=== PATIENT | male | born 1980 | race African-American/Black ===

== ENCOUNTER 2016-06-24 20:18 | Emergency (ER) | payer OTHER ==
[~2016-06-24] VITALS: Ht 170.2 cm; Wt 68.0 kg
[~2016-06-24 20:18] MED LIST: NKM; POTASSIUM CHLO20 ME2 ORAL
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
[2016-06-24] MEDS ORDERED: Norco 5mg/325mg tab ORAL ONE (21:15)
[2016-06-24] MEDS ORDERED: Pantoprazole Inj IVP ONE (21:15)
[2016-06-24 21:31] LABS: MEAN CORPUSCULAR HEMOGLOBIN 33.8 PG (27.0-31.0); MEAN CORPUSCULAR HGB CONC 32.7 G/DL (32.0-36.0); MEAN CORPUSCULAR VOLUME 103 FL (80-99); MEAN PLATELET VOLUME 5.9 FL (6.5-10.1); PLATELET COUNT 191 K/UL (150-450); RED CELL DISTRIBUTION WIDTH 14.9 % (11.6-14.8); WHITE BLOOD COUNT 4.5 K/UL (4.8-10.8)
[2016-06-24 21:35] LABS: APPEARANCE,URINE CLEAR; KETONES,URINE NEGATIVE (NEGATIVE); LEUKOCYTE ESTERASE ,URINE NEGATIVE (NEGATIVE); NITRITE,URINE NEGATIVE (NEGATIVE); PH,URINE 7 (4.5-8.0); PROTEIN,URINE NEGATIVE (NEGATIVE); UROBILINOGEN,URINE NORMAL MG/DL (0.0-1.0)
[2016-06-24 21:49] LABS: ALANINE AMINOTRANSFERASE 21 U/L (3-41); ALBUMIN/GLOBULIN RATIO 1.1 (1.0-2.7); ANION GAP 16 (5-15); ASPARTATE AMINO TRANSFERASE 44 U/L (5-40); CARBON DIOXIDE 27 mEQ/L (20-30); CHLORIDE 95 mEQ/L (98-107); GLOMERULAR FILTRATION RATE > 60 mL/min (>60); HEMOLYSIS 6; SODIUM 138 mEQ/L (135-145)
[2016-06-24 21:57] VITALS: BP 132/88
[2016-06-24] MEDS ORDERED: IBUPROFEN600 M1 PO (22:58)
[2016-06-24 23:10] VITALS: BP 132/80
[2016-06-24 23:11] VITALS: BP 132/88
[2016-06-24 23:20] LABS: BASOPHILS % (MANUAL) 1 % (0-2); EOSINOPHILS % (MANUAL) 2 % (0-3); LYMPHOCYTES % (MANUAL) 53 % (20-45); NEUTROPHILS % (MANUAL) 37 % (45-75); TOTAL CELLS COUNTED 100
[2016-06-24 23:21] LABS: BAND NEUTROPHILS % (MANUAL) 0 % (0-8); PLATELET ESTIMATE ADEQUATE; PLATELET MORPHOLOGY NORMAL
--- NOTE | 2016-06-25 09:56 | Diagnostic Imaging Report ---
Clinical Indication: ABD PAIN Technique: No oral contrast utilized, per emergency room physician request IV administration nonionic contrast. Venous phase spiral acquisition obtained through the abdomen and pelvis. Multiplanar reconstructions were generated. Total dose length product 525 mGycm. CTDIvol(s) 10 mGy Comparison: None Findings: Normal appendix. No small bowel distention No evidence of diverticulosis or diverticulitis. No free or loculated intraperitoneal air or fluid the stomach, duodenum, distal esophagus are unremarkable. Liver demonstrates diffuse low attenuation, compatible with fatty change. There are scattered focal hypodensities which are too small to characterize. There is also hypodensity adjacent to the fissure for ligamentum teres, most likely focal fatty change. The gallbladder is unremarkable. No biliary ductal dilatation. The pancreas, spleen, adrenals, kidneys are unremarkable. No pelvic mass or adenopathy. No mesenteric or retroperitoneal mass or adenopathy. The included lung bases are clear. The bones are unremarkable. Impression: No acute abnormality Fatty liver Scattered hepatic hypodensities no acute bony characterize, most likely benign simple cysts or bile hamartomas. No further followup necessary Probable focal fatty change in the usual location of the left hepatic lobe This agrees with the preliminary interpretation provided overnight by [facility]erad[facility] service. The CT scanner at [facility] is accredited by the [employer] and the scans are performed using protocols designed to limit radiation exposure to as low as reasonably achievable to attain images of sufficient resolution adequate for diagnostic evaluation.
== END 2016-06-24 23:11 | disposition home or self-care (01) ==
LOC: EMR 21:44
DX: S30.1XXA Contusion of abdominal wall, initial encounter (principal); K92.0 Hematemesis; F10.10 Alcohol abuse, uncomplicated; F17.200 Nicotine dependence, unspecified, uncomplicated; Y04.8XXA Assault by other bodily force, initial encounter; Y92.9 Unspecified place or not applicable; Y99.8 Other external cause status
CPT/HCPCS: 36415; 74177; 80053; 80300; 81003; 85007; 85025; 96360; 96374; 99284; C9113; Q9967

== ENCOUNTER 2016-12-20 16:51 | Emergency (ER) | payer OTHER ==
[~2016-12-20] VITALS: Ht 170.2 cm; Wt 63.5 kg
[~2016-12-20 16:51] MED LIST changes: +IBUPROFEN600 M1 PO
[2016-12-20] MEDS ORDERED: Tetanus/Diptheria/Pertussis Vaccine 0.5ml Syr IM ONE (17:15)
[2016-12-20 18:19] VITALS: BP 124/77
[2016-12-20 18:25] VITALS: BP 124/77
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
== END 2016-12-20 18:25 | disposition left against medical advice (07) ==
LOC: EMR 17:20
DX: S61.512A Laceration without foreign body of left wrist, initial encounter (principal); W45.8XXA Other foreign body or object entering through skin, initial encounter; Y92.89 Other specified places as the place of occurrence of the external cause
CPT/HCPCS: 99283

== ENCOUNTER 2019-01-23 17:59 | Inpatient (IN) | payer OTHER ==
[~2019-01-23] VITALS: Ht 172.7 cm; Wt 55.3 kg
[2019-01-23 18:20] VITALS: BP 119/78
[2019-01-23] MEDS ORDERED: Pantoprazole Inj IV ONE (18:45)
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
[2019-01-23 19:18] VITALS: BP 128/89
--- NOTE | 2019-01-23 19:23 | NUR ---
ED Nurse Note: received patient from sita aparicio. patient resting in bed with no acute distress. family member at bedside. ao4. nad. attached to the monitor; vss. respirations even and unlabored. aware of peding admission. pending urine; pt states he will provide urine sample when able.
--- NOTE | 2019-01-23 19:45 | NUR ---
ED Nurse Note: urine sample collected; sent down to the lab.
[2019-01-23 19:57] LABS: BASOPHILS % (AUTO) 1.7 % (0.0-2.0); EOSINOPHILS % (AUTO) 0.5 % (0.0-3.0); HEMOGLOBIN 13.5 G/DL (14.2-18.0); LYMPHOCYTES % (AUTO) 34.4 % (20.0-45.0); MEAN CORPUSCULAR VOLUME 86 FL (80-99); MONOCYTES % (AUTO) 11.5 % (1.0-10.0); PLATELET COUNT 144 K/UL (150-450); RED BLOOD COUNT 4.75 M/UL (4.70-6.10); RED CELL DISTRIBUTION WIDTH 14.4 % (11.6-14.8); WHITE BLOOD COUNT 5.3 K/UL (4.8-10.8)
[2019-01-23 20:06] LABS: ANION GAP 15 mmol/L (5-15); BLOOD UREA NITROGEN 3 mg/dL (7-18); CALCIUM 9.9 MG/DL (8.5-10.1); CARBON DIOXIDE 27 MMOL/L (21-32); CHLORIDE 96 MMOL/L (98-107); CREATININE 0.8 MG/DL (0.55-1.30); INR 1.1 (0.9-1.1); POTASSIUM 4.2 MMOL/L (3.5-5.1); SODIUM 138 MMOL/L (136-145)
[2019-01-23 20:12] LABS: ALANINE AMINOTRANSFERASE 141 U/L (12-78); ALBUMIN/GLOBULIN RATIO 0.7 (1.0-2.7); ALKALINE PHOSPHATASE 218 U/L (46-116); ASPARTATE AMINO TRANSFERASE 410 U/L (15-37); BILIRUBIN,TOTAL 0.8 MG/DL (0.2-1.0); CREATINE KINASE 190 U/L (26-308)
[2019-01-23 20:17] LABS: APPEARANCE,URINE CLEAR; BILIRUBIN, URINE NEGATIVE (NEGATIVE); COLOR,URINE PALE YELLOW; GLUCOSE, URINE (UA) NEGATIVE (NEGATIVE); KETONES,URINE 1+ (NEGATIVE); LEUKOCYTE ESTERASE ,URINE NEGATIVE (NEGATIVE); NITRITE,URINE NEGATIVE (NEGATIVE); PH,URINE 5 (4.5-8.0); PROTEIN,URINE 1+ (NEGATIVE); UROBILINOGEN,URINE NORMAL MG/DL (0.0-1.0)
--- NOTE | 2019-01-23 20:38 | NUR ---
ED Nurse Note: completed belongings list with patient.
[2019-01-23] MEDS ORDERED: Thiamine HCl 100 MG in D5W 55 ML IVPB STA (20:46)
[2019-01-23 21:00] VITALS: BP 125/80
[2019-01-23] MEDS ORDERED: Pantoprazole 80 MG in NS 250 ML IV ONE (21:15)
[2019-01-23] MEDS ORDERED: LORazepam 1mg tab ORAL PRN (21:15)
[2019-01-23] MEDS ORDERED: NS 275ml ONE (21:27)
--- NOTE | 2019-01-23 21:30 | NUR ---
TRANSFER TO FLOOR: Patient transferred to med surg 402-1 as ordered, per henrietta salazar. Report given to robel buckner. patient transfered to the floor via wheelchair with emt. belongings and packet transferred with patient. accompanied by family member. ao4. nad. vss.
--- NOTE | 2019-01-23 21:55 | NUR ---
NURSE NOTES: Patient received from ED, came up in wheelchair, in no acute distress, on room air. Sent to bed 412-1. Came up with belongings. Some valuables as noted on belongings list were sent home with pt's mother. Pt is alert and oriented x4, He is unsteady in gait and currently resting in bed. Bed is locked in lowest position, side rails x3 as requested by patient. Bed is alarmed, pt has been educated about the unit, given call light for assistance and asked to call as he is a fall risk. Pt verbalized understanding and agreed to fall for assistance, call light within reach. will continue to monitor pt. VSS at this time. IV R AC 20 g, patent, asymptomatic. Will carry out MD orders. Mother at patient's bedside.
[2019-01-23 22:00] VITALS: BP 128/88
[2019-01-24] VITALS: BP 121/71
[2019-01-24 04:00] VITALS: BP 119/72
--- NOTE | 2019-01-24 07:23 | NUR ---
HAND-OFF: Report given to TIERRA Negron.
--- NOTE | 2019-01-24 07:50 | NUR ---
NURSE NOTES: stool for cdiff brought to lab.
--- NOTE | 2019-01-24 07:50 | NUR ---
NURSE NOTES: Patient is awake and alert and oriented,respirations unlabored.IV fluids infusing as ordered.Patient had a liquid dark green stool,stool sent for Cdiff as ordered.patient voided clear yellow urine. small amount of blood tinge sputum noted.reinforce to patient to call for assist when getting out of bed. Ther is commode at bedside.Bed alarm is on,call light within reach.
[2019-01-24 08:00] VITALS: BP 124/83
[2019-01-24 08:47] LABS: ALANINE AMINOTRANSFERASE 112 U/L (12-78); ALBUMIN 3.2 G/DL (3.4-5.0); ALBUMIN/GLOBULIN RATIO 0.7 (1.0-2.7); ALKALINE PHOSPHATASE 174 U/L (46-116); ANION GAP 12 mmol/L (5-15); ASPARTATE AMINO TRANSFERASE 302 U/L (15-37); BILIRUBIN,TOTAL 1.2 MG/DL (0.2-1.0); BLOOD UREA NITROGEN 2 mg/dL (7-18); CARBON DIOXIDE 26 MMOL/L (21-32); CHLORIDE 98 MMOL/L (98-107); CREATININE 0.8 MG/DL (0.55-1.30); POTASSIUM 3.2 MMOL/L (3.5-5.1); SODIUM 136 MMOL/L (136-145)
[2019-01-24 08:52] LABS: BILIRUBIN,DIRECT 0.5 MG/DL (0.0-0.3)
[2019-01-24 09:13] LABS: BASOPHILS % (AUTO) 1.2 % (0.0-2.0); EOSINOPHILS % (AUTO) 0.4 % (0.0-3.0); HEMOGLOBIN 11.6 G/DL (14.2-18.0); LYMPHOCYTES % (AUTO) 23.6 % (20.0-45.0); MEAN CORPUSCULAR VOLUME 86 FL (80-99); MONOCYTES % (AUTO) 10.3 % (1.0-10.0); NEUTROPHILS % (AUTO) 64.5 % (45.0-75.0); PLATELET COUNT 118 K/UL (150-450); RED BLOOD COUNT 4.05 M/UL (4.70-6.10); RED CELL DISTRIBUTION WIDTH 15.7 % (11.6-14.8); WHITE BLOOD COUNT 5.5 K/UL (4.8-10.8)
--- NOTE | 2019-01-24 09:18 | History and Physical ---
History of Present Illness General Date patient seen: Jan 24, 2019 Reason for Hospitalization: Pancreatitis, GI bleed Present Illness HPI This is a 38-year-old male with a past medical history of alcohol dependence. He presents for3 to 4 days of hematemesis and melanotic stools. The patient drinks 5-10 alcoholic drinks per day. Last drink was 01/23/19. If he does not drink he starts having the shakes morning. He has also had epigastric pain associated with the vomiting and unable to keep food down. He rates this pain 1 -2/10 at this time and burning and aching. The pain does not radiate. He feels weak when he stands up. He denies any seizures. 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 No fevers, chills, sore throat, chest pain, palpitations, dysuria, shortness of breath, joint pain, rashes, depression, anxiety, visual changes, dizziness, headache. He has never attended Alcoholics Anonymous. In the ER the patient had a temperature of 98.4 pulse 124, respirations 24, blood pressure 119/78. Patient with WBCs 5.3 hemoglobin 13.5, platelets 144. Potassium 3.2, creatinine 0.8. AST elevated 410 ALT 141 alk phos 218. Initial troponin negative. EKG showed normal sinus rhythm rate of 81, no ST depressions or elevations. Lipase elevated at 1634. Patient given IV fluids and pain meds. Allergies: None Family history: Mother diabetes Surgical history: None Social history: Half pack per day for 15 years, 10-year history of heavy alcohol use, marijuana use Medications: None Allergies: Coded Allergies: No Known Allergies (Unverified , 10/05/15) Medication History No Active Prescriptions or Reported Meds Patient History Healthcare decision maker Resuscitation status Full Code Advanced Directive on File Review of Systems Constitutional: Denies: see HPI, chills, sweats, fever, malaise, weakness, other Eye: Denies: see HPI, eye pain, blurred vision, tearing, double vision, nose pain, nose congestion, acuity changes, discharge, other ENT: Denies: see HPI, ear pain, ear discharge, nose pain, nose congestion, throat pain, throat swelling, mouth pain, hearing loss, nasal discharge, other Respiratory: Denies: see HPI, cough, orthopnea, shortness of breath, stridor, wheezing, BROOKS, sputum, other Cardiovascular: Denies: see HPI, chest pain, edema, palpitations, syncope, PND , other Gastrointestinal: Reports: abdominal pain, nausea, vomiting, melena, hematemesis; Denies: see HPI, constipation, diarrhea, other Genitourinary: Denies: see HPI, discharge, dysuria, frequency, hematuria, pain , retention, incontinence, urgency, vag bleed/dc, other Musculoskeletal: Denies: see HPI, back pain, gout, joint pain, joint swelling, muscle pain, muscle stiffness, other Skin: Denies: see HPI, rash, change in color, change in hair/nails, dryness, lesions, other Psychiatric: Denies: see HPI, prior hx, anxiety, depressed feelings, emotional problems, SI, HI, hallucinations, other Neurological: Denies: see HPI, headache, numbness, paresthesia, seizure, tingling, tremors, focal weakness, syncope, dizziness, other Endocrine: Denies: see HPI, excessive sweating, flushing, intolerance to temperature, increased thirst, increased urine, unexplained weight loss, other Hematologic/Lymphatic: Denies: see HPI, anemia, blood clots, easy bleeding, easy bruising, swollen glands, diathesis, other Physical Exam General Appearance: WD/WN, no apparent distress, alert Lines, tubes and drains: peripheral HEENT: normocephalic, atraumatic, anicteric, PERRL Neck: non-tender, normal alignment, supple Respiratory/Chest: chest wall non-tender, lungs clear, normal breath sounds, no respiratory distress, no accessory muscle use Cardiovascular/Chest: normal peripheral pulses, normal rate, regular rhythm, no JVD Abdomen: normal bowel sounds, non tender, soft, no organomegaly, no mass Extremities: normal range of motion, non-tender, normal inspection Skin Exam: normal pigmentation, warm/dry 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 normal, no motor/sensory deficits, alert, oriented x 3, responsive Lymphatic: anterior cervical - No lymphadenopathy bilaterally Last 24 Hour Vital Signs Date Time Temp Pulse Resp B/P (MAP) Pulse Ox O2 Delivery O2 Flow Rate FiO2 01/24/19 08:00 98.5 104 18 124/83 (97) 100 01/24/19 04:00 98.6 89 18 119/72 (88) 98 01/24/19 00:00 98.8 92 18 121/71 (88) 98 01/23/19 23:52 Room Air 01/23/19 22:00 98.8 87 18 128/88 (101) 98 01/23/19 21:30 98.4 90 16 125/80 99 Room Air 01/23/19 21:00 98.4 90 16 125/80 99 Room Air 01/23/19 19:18 98.4 88 14 128/89 100 Room Air 01/23/19 18:20 98.4 24 119/78 98 Room Air 01/23/19 18:20 98.4 24 119/78 98 Room Air 01/23/19 18:10 98.4 124 24 119/78 (92) 98 Room Air Intake and Output 01/23/19 01/24/19 19:00 07:00 Intake Total 1125 ml Output Total 550 ml Balance 575 ml Intake Oral 0 ml IV Total 1125 ml Output Urine Total 550 ml # Voids 1 # Bowel Movements 3 Laboratory Tests Test 01/23/19 18:56 01/23/19 19:45 01/24/19 06:20 White Blood Count 5.3 K/UL (4.8-10.8) Pending Red Blood Count 4.75 M/UL (4.70-6.10) Pending Hemoglobin 13.5 G/DL (14.2-18.0) L Pending Hematocrit 41.0 % (42.0-52.0) L Pending Mean Corpuscular Volume 86 FL (80-99) Pending Mean Corpuscular Hemoglobin 28.4 PG (27.0-31.0) Pending Mean Corpuscular Hemoglobin Concent 33.0 G/DL (32.0-36.0) Pending Red Cell Distribution Width 14.4 % (11.6-14.8) Pending Platelet Count 144 K/UL (150-450) L Pending Mean Platelet Volume 6.6 FL (6.5-10.1) Pending Neutrophils (%) (Auto) 52.0 % (45.0-75.0) Pending Lymphocytes (%) (Auto) 34.4 % (20.0-45.0) Pending Monocytes (%) (Auto) 11.5 % (1.0-10.0) H Pending Eosinophils (%) (Auto) 0.5 % (0.0-3.0) Pending Basophils (%) (Auto) 1.7 % (0.0-2.0) Pending Prothrombin Time 11.4 SEC (9.30-11.50) Prothromb Time International Ratio 1.1 (0.9-1.1) Activated Partial Thromboplast Time 28 SEC (23-33) Sodium Level 138 MMOL/L (136-145) 136 MMOL/L (136-145) Potassium Level 4.2 MMOL/L (3.5-5.1) 3.2 MMOL/L (3.5-5.1) L Chloride Level 96 MMOL/L (98-107) L 98 MMOL/L (98-107) Carbon Dioxide Level 27 MMOL/L (21-32) 26 MMOL/L (21-32) Anion Gap 15 mmol/L (5-15) 12 mmol/L (5-15) Blood Urea Nitrogen 3 mg/dL (7-18) L 2 mg/dL (7-18) L Creatinine 0.8 MG/DL (0.55-1.30) 0.8 MG/DL (0.55-1.30) Estimat Glomerular Filtration Rate > 60 mL/min (>60) > 60 mL/min (>60) Glucose Level 94 MG/DL (74-106) 56 MG/DL (74-106) L Calcium Level 9.9 MG/DL (8.5-10.1) 8.0 MG/DL (8.5-10.1) L Total Bilirubin 0.8 MG/DL (0.2-1.0) 1.2 MG/DL (0.2-1.0) H Aspartate Amino Transf (AST/SGOT) 410 U/L (15-37) H 302 U/L (15-37) H Alanine Aminotransferase (ALT/SGPT) 141 U/L (12-78) H 112 U/L (12-78) H Alkaline Phosphatase 218 U/L (46-116) H 174 U/L (46-116) H Total Creatine Kinase 190 U/L (26-308) Troponin I 0.000 ng/mL (0.000-0.056) Total Protein 9.5 G/DL (6.4-8.2) H 7.8 G/DL (6.4-8.2) Albumin 4.0 G/DL (3.4-5.0) 3.2 G/DL (3.4-5.0) L Globulin 5.5 g/dL 4.6 g/dL Albumin/Globulin Ratio 0.7 (1.0-2.7) L 0.7 (1.0-2.7) L Lipase 1634 U/L (73-393) H Serum Alcohol 293 mg/dL Urine Color Pale yellow Urine Appearance Clear Urine pH 5 (4.5-8.0) Urine Specific [place] 1.010 (1.005-1.035) Urine Protein 1+ (NEGATIVE) H Urine Glucose (UA) Negative (NEGATIVE) Urine Ketones 1+ (NEGATIVE) H Urine Blood Negative (NEGATIVE) Urine Nitrite Negative (NEGATIVE) Urine Bilirubin Negative (NEGATIVE) Urine Urobilinogen Normal MG/DL (0.0-1.0) Urine Leukocyte Esterase Negative (NEGATIVE) Urine RBC 0 /HPF (0 - 0) Urine WBC 0 /HPF (0 - 0) Urine Squamous Epithelial Cells Occasional /LPF Urine Bacteria None /HPF (NONE) Urine Mucus Few /LPF (NONE/OCC) H Urine Opiates Screen Negative (NEGATIVE) Urine Barbiturates Screen Negative (NEGATIVE) Phencyclidine (PCP) Screen Negative (NEGATIVE) Urine Amphetamines Screen Negative (NEGATIVE) Urine Benzodiazepines Screen Negative (NEGATIVE) Urine Cocaine Screen Negative (NEGATIVE) Urine Marijuana (THC) Screen Positive (NEGATIVE) H Phosphorus Level Pending Magnesium Level Pending Direct Bilirubin 0.5 MG/DL (0.0-0.3) H Height (Feet): 5 Height (Inches): 8.00 Weight (Pounds): 121 Medications Current Medications Medications (Trade) Dose Ordered Sig/[place] Route PRN Reason Start Time Stop Time Status Last Admin Dose Admin Acetaminophen (Tylenol) 650 mg Q4H PRN ORAL Mild Pain (Pain Scale 1-3) 01/23/19 21:15 02/22/19 21:14 Acetaminophen (Tylenol) 650 mg Q4H PRN ORAL fever 01/23/19 21:15 02/22/19 21:14 Ceftriaxone Sodium 1 gm/ Dextrose 55 ml @ 110 mls/hr Q24H IVPB 01/24/19 10:00 01/31/19 09:59 Dextrose (Dextrose 50%) 25 ml Q30M PRN IV Hypoglycemia 01/23/19 21:15 02/22/19 21:14 Dextrose (Dextrose 50%) 50 ml Q30M PRN IV Hypoglycemia 01/23/19 21:15 02/22/19 21:14 Diphenhydramine HCl (Benadryl) 25 mg Q6H PRN ORAL Itching/Pruritis 01/23/19 21:15 02/22/19 21:14 Folic Acid 1 mg/ Magnesium Sulfate 2000 mg/ Multivitamins 10 ml/Thiamine HCl 100 mg/Sodium Chloride 1,015.2 ml @ 125 mls/ hr Q24H IV 01/24/19 09:15 01/27/19 09:14 UNV Lorazepam (Ativan) 1 mg Q4H PRN ORAL Per rx protocol 01/24/19 01:15 01/30/19 21:14 Octreotide Acetate 500 mcg/ Sodium Chloride 500 ml @ 50 mls/hr Q10H IV 01/24/19 10:15 02/23/19 10:14 Ondansetron HCl (Zofran) 4 mg Q6H PRN IVP Nausea & Vomiting 01/23/19 21:15 02/22/19 21:14 Pantoprazole 80 mg/Sodium Chloride 250 ml @ 25 mls/hr Q10H IV 01/24/19 10:15 02/23/19 10:14 Potassium Chloride 100 ml @ 100 mls/hr Q1H IVPB 01/24/19 09:30 01/24/19 12:29 Sodium Chloride 1,000 ml @ 200 mls/hr Q5H IVLG 01/23/19 22:02 02/22/19 22:01 01/24/19 08:56 Assessment/Plan Problem List: (1) Pancreatitis ICD Codes: K85.90 - Acute pancreatitis without necrosis or infection, unspecified SNOMED: 12322788 Qualifiers: Qualified Codes: K85.20 - Alcohol induced acute pancreatitis without necrosis or infection (2) Alcoholic hepatitis ICD Codes: K70.10 - Alcoholic hepatitis without ascites SNOMED: 492881289 (3) Thrombocytopenia ICD Codes: D69.6 - Thrombocytopenia, unspecified SNOMED: 300468199 (4) Hypokalemia ICD Codes: E87.6 - Hypokalemia SNOMED: 35629346 (5) Upper GI bleed ICD Codes: K92.2 - Gastrointestinal hemorrhage, unspecified SNOMED: 05338470 (6) Alcohol abuse ICD Codes: F10.10 - Alcohol abuse, uncomplicated SNOMED: 39335067 Assessment/Plan: This is a 38-year-old male with a history of alcohol dependence presenting with alcoholic pancreatitis, upper GI bleed, alcoholic hepatitis. #Acute pancreatitis, suspect alcohol induced. -IV normal saline at 200 cc/h -N.P.o. -Dilaudid for pain management -Appreciate GI recommendations: Dr. Mcdaniel -abdominal ultrasound #Upper GI bleed -Trend CBC -occult blood -Appreciate GI recommendations -Plan for EGD -Protonix 40 mg IV twice daily -Octreotide GTT for possible varices -Rocephin 1 g IV every 24 hours (01/24 - ) #Alcoholic hepatitis. AST 2X>ALT. - improving #EtOH dependence #Suspect possible underlying cirrhosis > [facility] discrimant function 0.3. Good prognosis >last drink 01/23/19 >no history of withdrawl, seizures or DT's -No steroids indicated -Continue to trend LFTs -Appreciate GI recommendations -abdominal US to eval for cirrhosis as above -CIWAA protocol for withdrawl -ativan PRN -banana bag x 3 days #diarrhea, suspect related to pancreatitis. R/o C. diff - send for C.diff FENPPX DVTPPX: SCD's for now. Holding Heparin SQ given bleed GI PPX: Protonix Fluids: as above Diet: NPO Lines: peripheral PT/OT: pending Code status: Full Dispo: Home after resolution of above issues Reason for Continued Hospitalization: Pancreatitits 78 minutes spent on this encounter. Discussed with RN, patient, and gastroenterology . > 50% spent on counseling and care coordination. Time of note may not reflect time patient was seen. Dayron Salas D.O. Jan 24, 2019 09:18
[2019-01-24 09:33] LABS: PHOSPHORUS 3.1 MG/DL (2.5-4.9)
[2019-01-24] MEDS ORDERED: Pantoprazole 80 MG in NS 250 ML IV SCH (10:15)
--- NOTE | 2019-01-24 10:26 | Diagnostic Imaging Report ---
Indication: Reason For Exam: ABD PAIN Technique: Single AP view of the chest. Comparison: None. Findings: The cardiomediastinal silhouette is within normal limits. There is no focal consolidation, pneumothorax or pleural effusion. Osseous structures demonstrate no acute abnormality. Right anterior fourth through sixth rib deformities may represent old healed fractures. IMPRESSION: No radiographic evidence of acute cardiopulmonary process.
--- NOTE | 2019-01-24 10:27 | Diagnostic Imaging Report ---
Indication: Reason For Exam: ABD PAIN Technique: AP views of the abdomen Comparison: CT abdomen pelvis dated 06/24/2016 Findings: Bowel gas pattern is nonobstructive. Visceral shadows are unremarkable within limitations of the examination. Lung bases are clear. IMPRESSION: Nonobstructive bowel gas pattern.
[2019-01-24] MEDS: cefTRIAXone 1 GM in D5W 55 ML IVPB SCH (11:26)
--- NOTE | 2019-01-24 11:45 | General Progress Note ---
Assessment/Plan Assessment/Plan: GI Consult Assessment EtOH hepatitis EtOH pancreatitis UGIB, likely EtOH gastritis Will arrange for EGD Thank you Maurice Mcdaniel MD Subjective Allergies: Coded Allergies: No Known Allergies (Unverified , 10/05/15) Objective Last 24 Hour Vital Signs Date Time Temp Pulse Resp B/P (MAP) Pulse Ox O2 Delivery O2 Flow Rate FiO2 01/24/19 08:00 98.5 104 18 124/83 (97) 100 01/24/19 04:00 98.6 89 18 119/72 (88) 98 01/24/19 00:00 98.8 92 18 121/71 (88) 98 01/23/19 23:52 Room Air 01/23/19 22:00 98.8 87 18 128/88 (101) 98 01/23/19 21:30 98.4 90 16 125/80 99 Room Air 01/23/19 21:00 98.4 90 16 125/80 99 Room Air 01/23/19 19:18 98.4 88 14 128/89 100 Room Air 01/23/19 18:20 98.4 24 119/78 98 Room Air 01/23/19 18:20 98.4 24 119/78 98 Room Air 01/23/19 18:10 98.4 124 24 119/78 (92) 98 Room Air Intake and Output 01/23/19 01/24/19 19:00 07:00 Intake Total 1125 ml Output Total 550 ml Balance 575 ml Intake Oral 0 ml IV Total 1125 ml Output Urine Total 550 ml # Voids 1 # Bowel Movements 3 Laboratory Tests 01/23/19 18:56: White Blood Count 5.3, Red Blood Count 4.75, Hemoglobin 13.5L, Hematocrit 41.0L , Mean Corpuscular Volume 86, Mean Corpuscular Hemoglobin 28.4, Mean Corpuscular Hemoglobin Concent 33.0, Red Cell Distribution Width 14.4, Platelet Count 144L, Mean Platelet Volume 6.6, Neutrophils (%) (Auto) 52.0, Lymphocytes ( %) (Auto) 34.4, Monocytes (%) (Auto) 11.5H, Eosinophils (%) (Auto) 0.5, Basophils (%) (Auto) 1.7, Prothrombin Time 11.4, Prothromb Time International Ratio 1.1, Activated Partial Thromboplast Time 28, Sodium Level 138, Potassium Level 4.2, Chloride Level 96L, Carbon Dioxide Level 27, Anion Gap 15, Blood Urea Nitrogen 3L, Creatinine 0.8, Estimat Glomerular Filtration Rate > 60, Glucose Level 94, Calcium Level 9.9, Total Bilirubin 0.8, Aspartate Amino Transf (AST/SGOT) 410H, Alanine Aminotransferase (ALT/SGPT) 141H, Alkaline Phosphatase 218H, Total Creatine Kinase 190, Troponin I 0.000, Total Protein 9.5H, Albumin 4.0, Globulin 5.5, Albumin/Globulin Ratio 0.7L, Lipase 1634H, Serum Alcohol 293 01/23/19 19:45: Urine Color Pale yellow, Urine Appearance Clear, Urine pH 5, Urine Specific [place] 1.010, Urine Protein 1+H, Urine Glucose (UA) Negative, Urine Ketones 1+H , Urine Blood Negative, Urine Nitrite Negative, Urine Bilirubin Negative, Urine Urobilinogen Normal, Urine Leukocyte Esterase Negative, Urine RBC 0, Urine WBC 0 , Urine Squamous Epithelial Cells Occasional, Urine Bacteria None, Urine Mucus FewH, Urine Opiates Screen Negative, Urine Barbiturates Screen Negative, Phencyclidine (PCP) Screen Negative, Urine Amphetamines Screen Negative, Urine Benzodiazepines Screen Negative, Urine Cocaine Screen Negative, Urine Marijuana (THC) Screen PositiveH 01/24/19 06:20: White Blood Count 5.5, Red Blood Count 4.05L, Hemoglobin 11.6L, Hematocrit 35.0L , Mean Corpuscular Volume 86, Mean Corpuscular Hemoglobin 28.7, Mean Corpuscular Hemoglobin Concent 33.2, Red Cell Distribution Width 15.7H, Platelet Count 118L, Mean Platelet Volume 7.1, Neutrophils (%) (Auto) 64.5, Lymphocytes (%) (Auto) 23.6, Monocytes (%) (Auto) 10.3H, Eosinophils (%) (Auto) 0.4, Basophils (%) (Auto) 1.2, Sodium Level 136, Potassium Level 3.2L, Chloride Level 98, Carbon Dioxide Level 26, Anion Gap 12, Blood Urea Nitrogen 2L, Creatinine 0.8, Estimat Glomerular Filtration Rate > 60, Glucose Level 56L, Calcium Level 8.0L, Total Bilirubin 1.2H, Aspartate Amino Transf (AST/SGOT) 302H , Alanine Aminotransferase (ALT/SGPT) 112H, Alkaline Phosphatase 174H, Total Protein 7.8, Albumin 3.2L, Globulin 4.6, Albumin/Globulin Ratio 0.7L, Phosphorus Level 3.1, Magnesium Level 1.0L, Direct Bilirubin 0.5H, Lactate Dehydrogenase 410H Height (Feet): 5 Height (Inches): 8.00 Weight (Pounds): 121 Maurice Mcdaniel MD Jan 24, 2019 11:45
[2019-01-24] MEDS: Octreotide Acetate 500 MCG in Sodium Chloride 499 ML IV SCH ×2 (11:59→20:51)
[2019-01-24 12:00] VITALS: BP 136/83
[2019-01-24] MEDS: Pantoprazole Inj IVP SCH ×2 (12:17→20:51)
[2019-01-24] MEDS: Thiamine 100mg in D5W 55ml IVPB SCH (13:02)
[2019-01-24] MEDS: Folic Acid 1 MG, Magnesium Sulfate 2,000 MG, Multivitamin - 12 Injection 10 ML in Sodiu... IV SCH (13:03)
[2019-01-24] MEDS ORDERED: HYDROmorphone 1mg/ml Carpuject IVP PRN (15:45)
[2019-01-24] MEDS ORDERED: Hydromorphone 0.5mg/0.5ml inj IVP PRN ×2 (15:45)
[2019-01-24 16:00] VITALS: BP 129/85
--- NOTE | 2019-01-24 18:00 | NUR ---
NURSE NOTES: Patient resting,no complaints at this time,IV continues to infuse as ordered.Bed alarm is on,call light within reach.
--- NOTE | 2019-01-24 19:30 | Consultation ---
DATE OF CONSULTATION: 01/24/2019 GASTROENTEROLOGY CONSULTATION REPORT CHIEF COMPLAINT: I was asked to see this patient by Dr. Gerhard Wilkes for evaluation of GI bleeding and pancreatitis. HISTORY OF PRESENT ILLNESS: The patient is a 38-year-old, man who drinks excessive amounts of alcohol since age 19. He came to the hospital with a 3-day history of nausea, vomiting. The patient was also noted to have some streaks of red blood in his vomit and his stools reported to be black. He thinks he drinks up to 5 more beverages of alcohol daily. He has had no previous history of pancreatitis or hepatitis. PAST MEDICAL HISTORY: History of right injury with permanent damage, recent history of leg weakness. MEDICATIONS: None. FAMILY HISTORY: Noncontributory. SOCIAL HISTORY: The patient lives with his mother. He smokes. He drinks alcohol and he uses marijuana. REVIEW OF SYSTEMS: Otherwise negative. PHYSICAL EXAMINATION: GENERAL: Thin seen in his room. HEENT: Normocephalic and atraumatic. Oropharynx is clear. NECK: Supple. CHEST: Clear to auscultation. CARDIOVASCULAR: Regular rate. ABDOMEN: Soft, nontender in the epigastric region without guarding. EXTREMITIES: Revealed no edema. LABORATORY DATA: Noted. ASSESSMENT: This patient presents for both upper gastrointestinal bleeding as well as pancreatitis both of which could be attributed to excessive alcohol use. The patient was advised regarding excessive alcohol use and his long-term consequences. He should be kept NPO today and endoscopy can be done tomorrow if the patient is agreeable. His pancreatitis is clinically mild, he is nontender. His vital signs are stable. His diet can be resumed tomorrow after endoscopy. In the meantime proton pump inhibitor should be given and should be followed closely. RECOMMENDATIONS: Per above discussion and per orders written in the chart. Thank you for asking me to participate in care this patient. Maurice Mcdaniel M.D. DR: Marco JOB#: [id number] CC:
--- NOTE | 2019-01-24 19:48 | NUR ---
HAND-OFF: Report given to BRITTANY MAYORGA. Addendum: 01/24/19 at 1959 by LUIS DANIEL ELENA RN RN HAND-OFF: clarification,report given to Amy MAYORGA
--- NOTE | 2019-01-24 19:50 | NUR ---
NURSE NOTES: Received report from TEIRRA Negron. Patient is awake and alert and oriente x4, respirations unlabored on room air. IV fluids infusing as ordered. Reinforced to patient to call for assist when getting out of bed, BSC at bedside, Bed is locked in lowest position, .Bed alarm is on,call light within reach, urinal within reach.
[2019-01-24 20:00] VITALS: BP 114/72
[2019-01-25] VITALS (9 sets, daily range): BP systolic 110–141; BP diastolic 71–96
[2019-01-25] MEDS: LORazepam 1mg tab ORAL PRN ×2 (03:08→09:22)
[2019-01-25] MEDS: Octreotide Acetate 500 MCG in Sodium Chloride 499 ML IV SCH ×2 (06:35→16:15)
--- NOTE | 2019-01-25 07:21 | NUR ---
HAND-OFF: Report given to TIERRA Ryan.
--- NOTE | 2019-01-25 07:43 | NUR ---
NURSE NOTES: Endorsed that patient will be going for endoscopy, GI procedure checklist completed
--- NOTE | 2019-01-25 09:00 | NUR ---
NURSE NOTES: patient pulled out one of LFA IV access, with blood splashing over his gown, bed sheet and floor. Bleeding stopped after site compression, patient was cleansed by TELETYPE MECHANIC and nurse. EVS sanitized affected areas in patient's bedroom. Educated patient to not take out the other remaining IV access, patient needs reinforcement.
[2019-01-25] MEDS: cefTRIAXone 1 GM in D5W 55 ML IVPB SCH (09:22)
[2019-01-25] MEDS: Pantoprazole Inj IVP SCH ×2 (09:22→20:05)
--- NOTE | 2019-01-25 09:49 | NUR ---
*-* NO INSURANCE INFORMATION IN THE BAR UNABLE TO SEND CLINICALS OR REVIEWS *-*
[2019-01-25 10:02] LABS: BASOPHILS % (AUTO) 1.3 % (0.0-2.0); EOSINOPHILS % (AUTO) 0.3 % (0.0-3.0); HEMATOCRIT 36.3 % (42.0-52.0); HEMOGLOBIN 11.9 G/DL (14.2-18.0); MEAN CORPUSCULAR VOLUME 88 FL (80-99); MONOCYTES % (AUTO) 12.2 % (1.0-10.0); NEUTROPHILS % (AUTO) 68.2 % (45.0-75.0); PLATELET COUNT 119 K/UL (150-450); RED BLOOD COUNT 4.14 M/UL (4.70-6.10); RED CELL DISTRIBUTION WIDTH 16.1 % (11.6-14.8); WHITE BLOOD COUNT 6.4 K/UL (4.8-10.8)
[2019-01-25 10:08] LABS: INR 1.2 (0.9-1.1)
[2019-01-25 10:39] LABS: ALANINE AMINOTRANSFERASE 95 U/L (12-78); ALBUMIN 3.5 G/DL (3.4-5.0); ALBUMIN/GLOBULIN RATIO 0.7 (1.0-2.7); ALKALINE PHOSPHATASE 166 U/L (46-116); ANION GAP 23 mmol/L (5-15); ASPARTATE AMINO TRANSFERASE 202 U/L (15-37); BILIRUBIN,TOTAL 1.3 MG/DL (0.2-1.0); BLOOD UREA NITROGEN 2 mg/dL (7-18); CALCIUM 7.6 MG/DL (8.5-10.1); CARBON DIOXIDE 15 MMOL/L (21-32); CHLORIDE 95 MMOL/L (98-107); CREATININE 0.7 MG/DL (0.55-1.30); PHOSPHORUS 1.9 MG/DL (2.5-4.9); POTASSIUM 3.6 MMOL/L (3.5-5.1); SODIUM 133 MMOL/L (136-145)
[2019-01-25] MEDS ORDERED: LORazepam Inj 2mg/ml 1ml IV PRN ×2 (10:45→11:00)
[2019-01-25 10:53] LABS: BILIRUBIN,DIRECT 0.5 MG/DL (0.0-0.3)
[2019-01-25] MEDS ORDERED: LORazepam 1mg tab ORAL PRN (11:00)
--- NOTE | 2019-01-25 11:40 | Pre-Procedure Note/Attestation ---
Pre-Procedure Note/Attestation Complete Prior to Procedure Planned Procedure: not applicable Procedure Narrative: egd Indications for Procedure Pre-Operative Diagnosis: GIB Attestation I attest that I discussed the nature of the procedure; its benefits; risks and complications; and alternatives (and the risks and benefits of such alternatives ), prior to the procedure, with the patient (or the patient's legal site safety representative). I attest that, if there was a reasonable possibility of needing a blood transfusion, the patient (or the patient's legal site safety representative) was given the [facility] standardized written summary, pursuant to the [employer] Blood Safety Act ([place] Health and Safety Code # 1645, as amended). I attest that I re-evaluated the patient just prior to the surgery and that there has been no change in the patient's H&P, except as documented below: Steven Grey MD Jan 25, 2019 11:40
[2019-01-25] MEDS ORDERED: Lidocaine 1% MPF 10mg/ml 5ml ONE (12:00)
[2019-01-25] MEDS ORDERED: fentaNYL 100 mcg/2 mL IV PRN (12:00)
[2019-01-25] MEDS ORDERED: Propofol 200mg/20ml IV ONE (12:00)
[2019-01-25] MEDS ORDERED: Midazolam 2mg/2ml Inj IVP PRN (12:00)
[2019-01-25] MEDS ORDERED: Atropine Inj 1mg/10ml Syr IV PRN (12:00)
[2019-01-25] MEDS ORDERED: DiphenhydrAMINE 50mg/ml Inj IVP PRN (12:00)
--- NOTE | 2019-01-25 12:01 | Anethesia Preoperative Eval ---
Anesthesia Pre-op PMH/ROS General Date of Evaluation: Jan 25, 2019 Time of Evaluation: 11:49 Anesthesiologist: darrick ASA Score: ASA 3 Mallampati Score Class I : Soft palate, uvula, fauces, pillars visible Class II: Soft palate, uvula, fauces visible Class III: Soft palate, base of uvula visible Class IV: Only hard plate visible Mallampati Classification: Class II Surgeon: luis enrique Diagnosis: ugib Surgical Procedure: egd Anesthesia History: none Social History: alcohol use, drug use Family History: no anesthesia problems Allergies: Coded Allergies: No Known Allergies (Unverified , 10/05/15) Medications: see eMAR Patient NPO?: Yes Past Medical History Gastrointestinal/Genitourinary: Reports: other - hematemesis, pancreatitis,gi bleed Neurologic/Psychiatric: Reports: depression/anxiety, other - weakness, neurologic disorder Hematology/Immune: Reports: anemia Anesthesia Pre-op Phys. Exam Physician Exam Last Vital Signs Date Time Temp Pulse Resp B/P (MAP) Pulse Ox O2 Delivery O2 Flow Rate FiO2 01/25/19 09:00 Room Air 01/25/19 08:00 97.6 90 20 118/82 (94) 100 Constitutional: NAD Neurologic: CN 2-12 intact Cardiovascular: RRR Respiratory: CTA Gastrointestinal: S/NT/ND Airway Exam Mallampati Score: Class II MO: limited Neck: flexible TMD: 2fb ROM: limited Anesthesia Pre-op A/P Labs Hematology Test 01/25/19 09:30 White Blood Count 6.4 K/UL (4.8-10.8) Red Blood Count 4.14 M/UL (4.70-6.10) L Hemoglobin 11.9 G/DL (14.2-18.0) L Hematocrit 36.3 % (42.0-52.0) L Mean Corpuscular Volume 88 FL (80-99) Mean Corpuscular Hemoglobin 28.6 PG (27.0-31.0) Mean Corpuscular Hemoglobin Concent 32.7 G/DL (32.0-36.0) Red Cell Distribution Width 16.1 % (11.6-14.8) H Platelet Count 119 K/UL (150-450) L Mean Platelet Volume 7.7 FL (6.5-10.1) Neutrophils (%) (Auto) 68.2 % (45.0-75.0) Lymphocytes (%) (Auto) 18.0 % (20.0-45.0) L Monocytes (%) (Auto) 12.2 % (1.0-10.0) H Eosinophils (%) (Auto) 0.3 % (0.0-3.0) Basophils (%) (Auto) 1.3 % (0.0-2.0) Coagulation Test 01/25/19 09:30 Prothrombin Time 12.4 SEC (9.30-11.50) H Prothromb Time International Ratio 1.2 (0.9-1.1) H Chemistry Test 01/25/19 09:30 Sodium Level 133 MMOL/L (136-145) L Potassium Level 3.6 MMOL/L (3.5-5.1) Chloride Level 95 MMOL/L (98-107) L Carbon Dioxide Level 15 MMOL/L (21-32) L Anion Gap 23 mmol/L (5-15) H Blood Urea Nitrogen 2 mg/dL (7-18) L Creatinine 0.7 MG/DL (0.55-1.30) Estimat Glomerular Filtration Rate > 60 mL/min (>60) Glucose Level 110 MG/DL (74-106) H Calcium Level 7.6 MG/DL (8.5-10.1) L Phosphorus Level 1.9 MG/DL (2.5-4.9) L Magnesium Level 1.4 MG/DL (1.8-2.4) L Total Bilirubin 1.3 MG/DL (0.2-1.0) H Direct Bilirubin 0.5 MG/DL (0.0-0.3) H Aspartate Amino Transf (AST/SGOT) 202 U/L (15-37) H Alanine Aminotransferase (ALT/SGPT) 95 U/L (12-78) H Alkaline Phosphatase 166 U/L (46-116) H Total Protein 8.2 G/DL (6.4-8.2) Albumin 3.5 G/DL (3.4-5.0) Globulin 4.7 g/dL Albumin/Globulin Ratio 0.7 (1.0-2.7) L Risk Assessment & Plan Assessment: asa3 Plan: mac Status Change Before Surgery: No Pre-Antibiotics Drug: Lindsay Ruff MD Jan 25, 2019 12:01
--- NOTE | 2019-01-25 12:04 | Endoscopy Procedure Note ---
Endoscopy Procedure Note General Indication for Procedure: gib Procedures Performed: EGD Operative Findings/Diagnosis: gastritis Specimen: yes Pt Tolerated Procedure Well: Yes Estimated Blood Loss: none Anesthesia Anesthesiologist: simeon Anesthesia: MAC Inserted Devices Implant(s) used?: No GI Core Measures 50 yrs or older w/o bx or poly: Not Applicable 10yrs. F/U recommended: Not Applicable Steven Grey MD Jan 25, 2019 12:04
[2019-01-25] MEDS ORDERED: NS 500ML IVPB ONE (12:07)
--- NOTE | 2019-01-25 12:19 | Diagnostic Imaging Report ---
Indication: Abdominal pain. Elevated liver enzymes Technique: Grayscale and duplex Doppler imaging of the abdomen performed. Comparison: None Findings: The liver is echogenic consistent with fatty infiltration. Doppler interrogation of the main portal vein shows patency with hepatopedal, monophasic flow. There is no biliary ductal dilatation identified. Gallbladder is unremarkable. The head of the pancreas appears prominent and heterogeneous. Further evaluation of this with contrast-enhanced CT is recommended to evaluate for tumor or pancreatitis. There is no biliary ductal dilatation appreciated. CBD measures 2.5 mm. Aorta and IVC are unremarkable. Both kidneys appear unremarkable. There is no hydronephrosis. IMPRESSION: Heterogeneous prominence of the pancreatic head. Further evaluation with contrast CT is recommended to evaluate for possible tumor or pancreatitis. No biliary ductal dilatation. Fatty liver.
--- NOTE | 2019-01-25 12:40 | Immediate Post-Op Evaluation ---
Immediate Post-Op Evalulation Immediate Post-Op Evalulation Procedure: egd w/bx Date of Evaluation: Jan 25, 2019 Time of Evaluation: 12:34 IV Fluids: 250ml 0.9ns Blood Products: none Estimated Blood Loss: negligible Blood Pressure Systolic: 110 Blood Pressure Diastolic: 77 Pulse Rate: 77 Respiratory Rate: 18 O2 Sat by Pulse Oximetry: 100 Temperature (Fahrenheit): 97.0 Pain Score (1-10): 0 Nausea: No Vomiting: No Complications none Patient Status: awake, reacts, patent Hydration Status: adequate Drug: Lindsay Ruff MD Jan 25, 2019 12:40
--- NOTE | 2019-01-25 12:41 | 48 Hour Post Anesthesia Eval ---
Post Anesthesia Evaluation Procedure: egd w/bx Date of Evaluation: Jan 25, 2019 Time of Evaluation: 12:36 Blood Pressure Systolic: 110 0: 77 Pulse Rate: 78 Respiratory Rate: 18 Temperature (Fahrenheit): 97.0 O2 Sat by Pulse Oximetry: 100 Airway: patent Nausea: No Vomiting: No Pain Intensity: 0 Hydration Status: adequate Cardiopulmonary Status: stable Mental Status/LOC: patient returned to baseline Post-Anesthesia Complications: none Follow-up care needed: N/A Lindsay Lewis MD Jan 25, 2019 12:41
--- NOTE | 2019-01-25 13:08 | NUR ---
RD ASSESSMENT & RECOMMENDATIONS SEE CARE ACTIVITY FOR COMPLETE ASSESSMENT DAILY ESTIMATED NEEDS: Needs based on Pancreatitis, underweight 55kg 30-35 kcals/kg 7789-1808 total kcals 1-1.5 g protein/kg 55-83 g total protein 25-30 mL/kg 6536-4578 total fluid mLs NUTRITION DIAGNOSIS: Increased kcal needs r/t h/o ETOH abuse, underweight status as evidenced by pt w/ reported chronic alcohol use, adm w/ blood alcohol level of 293, BMI underweight per guidelines, pt is 79% of [place] body weight. CURRENT DIET:Now Regular PO DIET RECOMMENDATIONS: SOFT DIET/ LOW FAT (d/t elev lipase) ADDITIONAL RECOMMENDATIONS: 1) monitor lipase, trend (1634) 2) Check lytes daily, replete as needed (Low Mg, Low Phos) 3) Obtain a standing weight, pt adm w/ reported wt loss 4) Add Ensure Enlive qdaily + snacks in b/w meals 5) Continue banana bag supplementation Including Vit B1, Mg, folate
[2019-01-25] MEDS: Folic Acid 1 MG, Magnesium Sulfate 2,000 MG, Multivitamin - 12 Injection 10 ML in Sodiu... IV SCH (13:15)
[2019-01-25] MEDS: Thiamine 100mg in D5W 55ml IVPB SCH (13:15)
--- NOTE | 2019-01-25 14:03 | General Progress Note ---
Assessment/Plan Problem List: (1) Alcohol abuse ICD Codes: F10.10 - Alcohol abuse, uncomplicated SNOMED: 56921829 (2) Pancreatitis ICD Codes: K85.90 - Acute pancreatitis without necrosis or infection, unspecified SNOMED: 51561391 Qualifiers: Qualified Codes: K85.20 - Alcohol induced acute pancreatitis without necrosis or infection (3) Alcoholic hepatitis ICD Codes: K70.10 - Alcoholic hepatitis without ascites SNOMED: 831425410 (4) Thrombocytopenia ICD Codes: D69.6 - Thrombocytopenia, unspecified SNOMED: 091867057 (5) Upper GI bleed ICD Codes: K92.2 - Gastrointestinal hemorrhage, unspecified SNOMED: 88047517 Status: stable Assessment/Plan: This is a 38-year-old male with a history of alcohol dependence presenting with alcoholic pancreatitis, upper GI bleed, alcoholic hepatitis. #Acute pancreatitis, suspect alcohol induced. -IV normal saline at 200 cc/h -N.P.o. -Dilaudid for pain management -Appreciate GI recommendations: Dr. Mcdaniel -abdominal ultrasound #Upper GI bleed -Trend CBC -occult blood -Appreciate GI recommendations -Plan for EGD today -Protonix 40 mg IV twice daily -Octreotide GTT for possible varices -Rocephin 1 g IV every 24 hours (01/24 - ) #Alcoholic hepatitis. AST 2X>ALT. - improving #EtOH dependence #Suspect possible underlying cirrhosis > Maddrey discrimant function 0.3. Good prognosis >last drink 01/23/19 >no history of withdrawl, seizures or DT's -No steroids indicated -Continue to trend LFTs -Appreciate GI recommendations -abdominal US to eval for cirrhosis as above -CIWAA protocol for withdrawal -ativan PRN -banana bag x 3 days -Librium #Nicotine dependence. -Nicotine patch -counselled #diarrhea, suspect related to pancreatitis. R/o C. diff - send for C.diff FENPPX DVTPPX: SCD's for now. Holding Heparin SQ given bleed GI PPX: Protonix Fluids: as above Diet: NPO Lines: peripheral PT/OT: pending Code status: Full Dispo: Home after resolution of above issues Reason for Continued Hospitalization: Pancreatitis 40 minutes spent on this encounter. Discussed with RN, patient, and gastroenterology . > 50% spent on counseling and care coordination. Time of note may not reflect time patient was seen. Subjective Date patient seen: Jan 25, 2019 ROS Limited/Unobtainable: No Constitutional: Denies: no symptoms, chills, diaphoresis, fever, malaise, weakness, other HEENT: Denies: no symptoms, eye pain, blurred vision, tearing, double vision, ear pain, ear discharge, nose pain, nose congestion, throat pain, throat swelling, mouth pain, mouth swelling, other Cardiovascular: Denies: no symptoms, chest pain, edema, irregular heart rate, lightheadedness, palpitations, syncope, other Respiratory: Denies: no symptoms, cough, orthopnea, shortness of breath, SOB with excertion, SOB at rest, sputum, stridor, wheezing, other Gastrointestinal/Abdominal: Reports: no symptoms, abdomen distended, black stools, tarry stools, blood in stool, constipated, diarrhea, difficulty swallowing, poor appetite, poor fluid intake, rectal bleeding, vomiting, other Genitourinary: Denies: no symptoms, burning, discharge, frequency, flank pain, hematuria, incontinence, pain, urgency, other Neurologic/Psychiatric: Denies: no symptoms, anxiety, depressed, emotional problems, headache, numbness, paresthesia, pre-existing deficit, seizure, tingling, tremors, weakness, other Endocrine: Denies: no symptoms, excessive sweating, flushing, intolerance to cold, intolerance to heat, increased hunger, increased thirst, increased urine, unexplained weight gain, unexplained weight loss, other Allergies: Coded Allergies: No Known Allergies (Unverified , 10/05/15) Subjective seen and examined. Mother and girl friend at bedside. patient wants to leave and smoke a cigarette somewhat agitated. pulling at his IV npo for endoscopy Objective Last 24 Hour Vital Signs Date Time Temp Pulse Resp B/P (MAP) Pulse Ox O2 Delivery O2 Flow Rate FiO2 01/25/19 12:41 78 18 100 01/25/19 12:40 97.9 86 16 123/74 100 Room Air 01/25/19 12:40 77 18 100 01/25/19 12:32 85 17 120/82 100 Room Air 01/25/19 12:27 76 19 110/77 100 Nasal Cannula 3 01/25/19 12:22 97.0 78 18 110/77 100 Nasal Cannula 3 01/25/19 12:00 97.7 82 18 120/84 (96) 100 01/25/19 09:00 Room Air 01/25/19 08:00 97.6 90 20 118/82 (94) 100 01/25/19 03:14 98.2 98 18 128/92 (104) 100 01/25/19 00:13 98.8 88 18 120/71 (87) 98 01/24/19 21:00 Room Air 01/24/19 20:00 98.2 79 18 114/72 (86) 100 01/24/19 16:00 98.4 77 18 129/85 (100) 96 Intake and Output 01/24/19 01/25/19 19:00 07:00 Intake Total 2155 ml 2475 ml Output Total 600 ml 1450 ml Balance 1555 ml 1025 ml Intake Oral 0 ml 0 ml IV Total 2155 ml 2475 ml Output Urine Total 600 ml 1450 ml # Voids 3 7 # Bowel Movements 4 8 Laboratory Tests 01/24/19 22:52: Stool Occult Blood Positive 01/25/19 09:30: White Blood Count 6.4, Red Blood Count 4.14L, Hemoglobin 11.9L, Hematocrit 36.3L , Mean Corpuscular Volume 88, Mean Corpuscular Hemoglobin 28.6, Mean Corpuscular Hemoglobin Concent 32.7, Red Cell Distribution Width 16.1H, Platelet Count 119L, Mean Platelet Volume 7.7, Neutrophils (%) (Auto) 68.2, Lymphocytes (%) (Auto) 18.0L, Monocytes (%) (Auto) 12.2H, Eosinophils (%) (Auto ) 0.3, Basophils (%) (Auto) 1.3, Prothrombin Time 12.4H, Prothromb Time International Ratio 1.2H, Sodium Level 133L, Potassium Level 3.6, Chloride Level 95L, Carbon Dioxide Level 15L, Anion Gap 23H, Blood Urea Nitrogen 2L, Creatinine 0.7, Estimat Glomerular Filtration Rate > 60, Glucose Level 110H, Calcium Level 7.6L, Phosphorus Level 1.9L, Magnesium Level 1.4L, Total Bilirubin 1.3H, Direct Bilirubin 0.5H, Aspartate Amino Transf (AST/SGOT) 202H, Alanine Aminotransferase (ALT/SGPT) 95H, Alkaline Phosphatase 166H, Total Protein 8.2, Albumin 3.5, Globulin 4.7, Albumin/Globulin Ratio 0.7L Height (Feet): 5 Height (Inches): 8.00 Weight (Pounds): 120 Objective General Appearance: WD/WN, no apparent distress, alert Lines, tubes and drains: peripheral HEENT: normocephalic, atraumatic, anicteric, PERRL Neck: non-tender, normal alignment, supple Respiratory/Chest: chest wall non-tender, lungs clear, normal breath sounds, no respiratory distress, no accessory muscle use Cardiovascular/Chest: normal peripheral pulses, normal rate, regular rhythm, no JVD Abdomen: normal bowel sounds, non tender, soft, no organomegaly, no mass Extremities: normal range of motion, non-tender, normal inspection Skin Exam: normal pigmentation, warm/dry 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 Jan 25, 2019 14:03
--- NOTE | 2019-01-25 15:27 | NUR ---
P. T Note: P.T evaluation completed and tx initiated. Please refer to P.T evaluation for current functional status. Pt is alert, highly confused and easily gets agitated howevver responds to calm verbal cues. Pt is unsteady with transfers and gait/ambulation activities requiring CGA/SBA X 1 for the above mobility tasks. Pt will benefit from skilled P.T service to address strength , balance and safety in functional mobilities for return to PLOF.
--- NOTE | 2019-01-25 16:30 | NUR ---
NURSE NOTES: patient is agitated, despite been given Lorazepam 2mg IV previously. Patient took out both his IV accesses, and blood was spilled all over his gown, bedding sheets and floor. Nurse compressed areas where patient was bleeding from, and placed compressive tape. No bleeding noted after site compression. Security was summoned. Notified dr Grey.
--- NOTE | 2019-01-25 16:52 | NUR ---
NURSE NOTES: Patient is restless and non-compliant. Patient observed biting IV tubing and drinking from IV tubing. Patient removed IV. Dr. Grey notified. New order received for Ativan, Librium, and bilateral soft-wrist restraints.
[2019-01-25] MEDS ORDERED: LORazepam Inj 2mg/ml 1ml IM ONE (17:00)
[2019-01-25] MEDS: chlordiazePOXIDE 25mg Cap ORAL SCH ×2 (17:08→23:38)
--- NOTE | 2019-01-25 17:52 | NUR ---
NURSE NOTES: patient has been medicated with Librium PO and Ativan IM, but is still agitated. Initiated bilateral soft wrist restraints, skin is intact under restraints. Tried to obtain another IV access, patient refused. Dr. Grey was notified.
--- NOTE | 2019-01-25 19:47 | NUR ---
HAND-OFF: Report given to TIERRA Martin.
--- NOTE | 2019-01-25 19:50 | NUR ---
NURSE NOTES: Received a report from TIERRA Ryan. Pt is in stable condition. Marce Hua at the bedside. No IV access. B soft wrist restraints. On room air. Bed in lowest position. Bed alarm is on. Call light within reach. Will continue to monitor.
--- NOTE | 2019-01-25 19:59 | NUR ---
NURSE NOTES: Informed Dr. Zhong that the pt is refusing to have IV access. MD aware, he states that it's okay to put non-admin for IV meds including antibiotics. SHERIE Rosen made aware.
--- NOTE | 2019-01-25 21:00 | Procedure Note ---
DATE OF PROCEDURE: 01/25/2019 SURGEON: Steven Grey M.D. PROCEDURE: Upper endoscopy with biopsy. ANESTHESIA: Per Dr. Villarreal. INSTRUMENT: Olympus adult flexible upper endoscope. INDICATION: Upper GI bleeding. REASON FOR PROCEDURE: The procedure, risks, benefits, and possible consequences, including hemorrhage, aspiration, perforation and infection, and alternative treatments, were explained to the patient/legal guardian by Dr. Steven Grey and the patient/legal guardian understood and accepted these risks. PROCEDURE IN DETAIL: After informed consent was obtained and the patient was adequately sedated, Olympus upper endoscope was advanced from mouth into the second portion of the duodenum and retroflexion was performed in the stomach. The patient had evidence of 3 cm hiatal hernia without any obvious esophagitis. In the stomach, there was diffuse gastritis. Random biopsy from antrum was obtained to rule out H. pylori infection. In the duodenum, there was mild duodenitis. No evidence of any ulceration or active bleeding at this time. SUMMARY OF FINDINGS: 1. A 3 cm hiatal hernia. 2. Gastritis, status post biopsy. 3. Mild duodenitis. RECOMMENDATIONS: Follow up biopsy results and treat accordingly. Continue on PPI once daily. Resume diet. I want to thank Dr. Wilkes, for this kind referral. Steven Grey M.D. DR: Heena JOB#: [id number] CC: Gerhard Wilkes M.D.; Fax#: [phone]
--- NOTE | 2019-01-25 21:46 | NUR ---
NURSE NOTES: Left a message for Dr. Wilkes for IM Ativan, Haldol, and Benardyl because the pt is restless and agitated. Awaiting for call back. SHERIE Rosen made aware.
[2019-01-25] MEDS ORDERED: Haloperidol Lactate 5 MG in D5W 55 ML IVPB ONE (22:00)
[2019-01-25] MEDS ORDERED: Haloperidol 5mg/ml Inj IM ONE (22:30)
[2019-01-25] MEDS ORDERED: LORazepam Inj 2mg/ml 1ml IV ONE (23:00)
--- NOTE | 2019-01-25 23:00 | NUR ---
NURSE NOTES: Informed Dr. Zhong about the pt's seizure. He ordered Ativan 1mg once and transfer the pt to tele. SHERIE Rosen made aware.
[2019-01-26] VITALS: BP 117/79
--- NOTE | 2019-01-26 00:25 | NUR ---
NURSE NOTES: Informed pt's mom Lesli about the pt's seizure and the transfer to tele.
[2019-01-26] MEDS: Octreotide Acetate 500 MCG in Sodium Chloride 499 ML IV SCH ×3 (01:56→22:38)
--- NOTE | 2019-01-26 03:44 | NUR ---
HAND-OFF: Report given to TIERRA Whitman. Pt is in stable condition. Belongings checked and with the pt.
--- NOTE | 2019-01-26 03:45 | NUR ---
NURSE NOTES: Received pt from TIERRA Arechiga. pt is awake and resting in bed. Iv site intact. Bed locked in lowest position, call light within reach, bed alarm on. Bi lateral soft wrist restraints on. alarm security or surveillance monitor on, belongings verified. Will continue with plan of care.
[2019-01-26 04:00] VITALS: BP 135/93
[2019-01-26] MEDS ORDERED: Octreotide Acetate 500 MCG in Sodium Chloride 499 ML IV SCH (04:45)
[2019-01-26] MEDS ORDERED: HYDROmorphone 1mg/ml Carpuject IVP PRN (04:45)
[2019-01-26] MEDS ORDERED: LORazepam Inj 2mg/ml 1ml IV PRN (04:45)
[2019-01-26] MEDS ORDERED: Hydromorphone 0.5mg/0.5ml inj IVP PRN ×2 (04:45)
[2019-01-26] MEDS: chlordiazePOXIDE 25mg Cap ORAL SCH ×4 (06:45→23:33)
[2019-01-26 07:04] LABS: BASOPHILS % (AUTO) 1.1 % (0.0-2.0); EOSINOPHILS % (AUTO) 0.7 % (0.0-3.0); HEMOGLOBIN 11.9 G/DL (14.2-18.0); LYMPHOCYTES % (AUTO) 18.6 % (20.0-45.0); MEAN CORPUSCULAR VOLUME 88 FL (80-99); MONOCYTES % (AUTO) 14.6 % (1.0-10.0); PLATELET COUNT 117 K/UL (150-450); RED BLOOD COUNT 4.19 M/UL (4.70-6.10); RED CELL DISTRIBUTION WIDTH 15.9 % (11.6-14.8); WHITE BLOOD COUNT 7.5 K/UL (4.8-10.8)
--- NOTE | 2019-01-26 07:29 | Cardiology Report ---
APPROVED REPORT EKG Measurement Heart [id number] Normal sinus rhythm Normal ECG
--- NOTE | 2019-01-26 07:38 | General Progress Note ---
Assessment/Plan Problem List: (1) Upper GI bleed ICD Codes: K92.2 - Gastrointestinal hemorrhage, unspecified SNOMED: 41351999 (2) Thrombocytopenia ICD Codes: D69.6 - Thrombocytopenia, unspecified SNOMED: 337571079 (3) Alcoholic hepatitis ICD Codes: K70.10 - Alcoholic hepatitis without ascites SNOMED: 184640346 (4) Pancreatitis ICD Codes: K85.90 - Acute pancreatitis without necrosis or infection, unspecified SNOMED: 43905043 Qualifiers: Qualified Codes: K85.20 - Alcohol induced acute pancreatitis without necrosis or infection (5) Alcohol abuse ICD Codes: F10.10 - Alcohol abuse, uncomplicated SNOMED: 40756860 Status: stable Assessment/Plan: s/p EGD: SUMMARY OF FINDINGS: 1. A 3 cm hiatal hernia. 2. Gastritis, status post biopsy. 3. Mild duodenitis. ppi repeat labs supportive care Subjective ROS Limited/Unobtainable: No Allergies: Coded Allergies: No Known Allergies (Unverified , 10/05/15) Objective Last 24 Hour Vital Signs Date Time Temp Pulse Resp B/P (MAP) Pulse Ox O2 Delivery O2 Flow Rate FiO2 01/26/19 05:32 105 01/26/19 04:00 97.2 105 22 135/93 (107) 99 01/26/19 00:00 97.9 105 20 117/79 (92) 99 01/25/19 21:00 Room Air 01/25/19 20:00 97.5 103 24 141/96 (111) 98 01/25/19 12:41 78 18 100 01/25/19 12:40 97.9 86 16 123/74 100 Room Air 01/25/19 12:40 77 18 100 01/25/19 12:32 85 17 120/82 100 Room Air 01/25/19 12:27 76 19 110/77 100 Nasal Cannula 3 01/25/19 12:22 97.0 78 18 110/77 100 Nasal Cannula 3 01/25/19 12:00 97.7 82 18 120/84 (96) 100 01/25/19 09:00 Room Air 01/25/19 08:00 97.6 90 20 118/82 (94) 100 Intake and Output 01/25/19 01/26/19 19:00 07:00 Intake Total 1131 ml Balance 1131 ml IV Total 1131 ml # Voids 1 Laboratory Tests 01/25/19 09:30: White Blood Count 6.4, Red Blood Count 4.14L, Hemoglobin 11.9L, Hematocrit 36.3L , Mean Corpuscular Volume 88, Mean Corpuscular Hemoglobin 28.6, Mean Corpuscular Hemoglobin Concent 32.7, Red Cell Distribution Width 16.1H, Platelet Count 119L, Mean Platelet Volume 7.7, Neutrophils (%) (Auto) 68.2, Lymphocytes (%) (Auto) 18.0L, Monocytes (%) (Auto) 12.2H, Eosinophils (%) (Auto ) 0.3, Basophils (%) (Auto) 1.3, Prothrombin Time 12.4H, Prothromb Time International Ratio 1.2H, Sodium Level 133L, Potassium Level 3.6, Chloride Level 95L, Carbon Dioxide Level 15L, Anion Gap 23H, Blood Urea Nitrogen 2L, Creatinine 0.7, Estimat Glomerular Filtration Rate > 60, Glucose Level 110H, Calcium Level 7.6L, Phosphorus Level 1.9L, Magnesium Level 1.4L, Total Bilirubin 1.3H, Direct Bilirubin 0.5H, Aspartate Amino Transf (AST/SGOT) 202H, Alanine Aminotransferase (ALT/SGPT) 95H, Alkaline Phosphatase 166H, Total Protein 8.2, Albumin 3.5, Globulin 4.7, Albumin/Globulin Ratio 0.7L 01/26/19 06:35: White Blood Count 7.5, Red Blood Count 4.19L, Hemoglobin 11.9L, Hematocrit 37.0L , Mean Corpuscular Volume 88, Mean Corpuscular Hemoglobin 28.5, Mean Corpuscular Hemoglobin Concent 32.2, Red Cell Distribution Width 15.9H, Platelet Count 117L, Mean Platelet Volume 8.1, Neutrophils (%) (Auto) 65.0, Lymphocytes (%) (Auto) 18.6L, Monocytes (%) (Auto) 14.6H, Eosinophils (%) (Auto ) 0.7, Basophils (%) (Auto) 1.1, Sodium Level [Pending], Potassium Level [ Pending], Chloride Level [Pending], Carbon Dioxide Level [Pending], Blood Urea Nitrogen [Pending], Creatinine [Pending], Estimat Glomerular Filtration Rate [ Pending], Glucose Level [Pending], Calcium Level [Pending], Total Bilirubin [ Pending], Aspartate Amino Transf (AST/SGOT) [Pending], Alanine Aminotransferase (ALT/SGPT) [Pending], Alkaline Phosphatase [Pending], Total Protein [Pending], Albumin [Pending], Globulin [Pending] Height (Feet): 5 Height (Inches): 8.00 Weight (Pounds): 120 General Appearance: confused EENT: normal ENT inspection Neck: supple Cardiovascular: normal rate Respiratory/Chest: decreased breath sounds Abdomen: normal bowel sounds, non tender, soft Extremities: non-tender Steven Grey MD Jan 26, 2019 07:38
--- NOTE | 2019-01-26 07:40 | NUR ---
HAND-OFF: Report given to TIERRA Leon. Endorsed plan of care.
[2019-01-26 07:54] LABS: ALANINE AMINOTRANSFERASE 95 U/L (12-78); ALBUMIN 3.3 G/DL (3.4-5.0); ALBUMIN/GLOBULIN RATIO 0.7 (1.0-2.7); ALKALINE PHOSPHATASE 145 U/L (46-116); ANION GAP 20 mmol/L (5-15); ASPARTATE AMINO TRANSFERASE 221 U/L (15-37); BILIRUBIN,TOTAL 1.2 MG/DL (0.2-1.0); BLOOD UREA NITROGEN 3 mg/dL (7-18); CALCIUM 8.1 MG/DL (8.5-10.1); CARBON DIOXIDE 17 MMOL/L (21-32); CHLORIDE 98 MMOL/L (98-107); CREATININE 0.7 MG/DL (0.55-1.30); POTASSIUM 3.1 MMOL/L (3.5-5.1); SODIUM 135 MMOL/L (136-145)
[2019-01-26 07:58] LABS: BILIRUBIN,DIRECT 0.5 MG/DL (0.0-0.3)
[2019-01-26 08:00] VITALS: BP 111/61
--- NOTE | 2019-01-26 08:21 | NUR ---
NURSE NOTES: Pt in bed in low position, bed alarm on, pt on restraints for confusion and high risk of fall, pt very confused d/t ETOH withdrawals, IV intact and patent, pt denies pain, current assessment is Ox3 and has episode of confusion, IV site patent and asymptomatic, no s/s of distress or sob, however, pt needs a condom cath to keep pt dry. will place.
[2019-01-26] MEDS: Pantoprazole Inj IVP SCH ×2 (09:44→21:38)
[2019-01-26] MEDS: LORazepam 1mg tab ORAL PRN ×4 (09:44→23:45)
[2019-01-26] MEDS ORDERED: cefTRIAXone 1 GM in D5W 55 ML IVPB SCH (10:00)
[2019-01-26] MEDS ORDERED: Folic Acid 1 MG, Magnesium Sulfate 2,000 MG, Multivitamin - 12 Injection 10 ML in Sodiu... IV SCH (11:00)
[2019-01-26] MEDS: Thiamine HCl 100 MG in D5W 55 ML IVPB SCH (11:09)
[2019-01-26 12:00] VITALS: BP 122/88
--- NOTE | 2019-01-26 15:46 | General Progress Note ---
Assessment/Plan Problem List: (1) Alcohol abuse ICD Codes: F10.10 - Alcohol abuse, uncomplicated SNOMED: 98174454 (2) Pancreatitis ICD Codes: K85.90 - Acute pancreatitis without necrosis or infection, unspecified SNOMED: 38327748 Qualifiers: Qualified Codes: K85.20 - Alcohol induced acute pancreatitis without necrosis or infection (3) Alcoholic hepatitis ICD Codes: K70.10 - Alcoholic hepatitis without ascites SNOMED: 589537685 (4) Thrombocytopenia ICD Codes: D69.6 - Thrombocytopenia, unspecified SNOMED: 941194715 (5) Upper GI bleed ICD Codes: K92.2 - Gastrointestinal hemorrhage, unspecified SNOMED: 01033826 Status: stable Assessment/Plan: This is a 38-year-old male with a history of alcohol dependence presenting with alcoholic pancreatitis, upper GI bleed, alcoholic hepatitis. #Acute pancreatitis, suspect alcohol induced. -IV normal saline at 200 cc/h -N.P.o. -Dilaudid for pain management -Appreciate GI recommendations: Dr. Mcdaniel -abdominal ultrasound #Upper GI bleed -Trend CBC -occult blood -Appreciate GI recommendation -Protonix 40 mg IV twice daily -s/p Octreotide GTT for possible varices -Rocephin 1 g IV every 24 hours (01/24 - ) s/p EGD: 1. A 3 cm hiatal hernia. 2. Gastritis, status post biopsy. 3. Mild duodenitis. #Alcoholic hepatitis. AST 2X>ALT. - improving #EtOH dependence #Suspect possible underlying cirrhosis #Etoh withdrawal seizures > Maddrey discrimant function 0.3. Good prognosis >last drink 01/23/19 >no history of withdrawal, seizures or DT's, now with seizures -> tele -No steroids indicated -Continue to trend LFTs -Appreciate GI recommendations -abdominal US to eval for cirrhosis as above--> Fatty liver, pancreatitis -CIWAA protocol for withdrawal -ativan PRN -banana bag x 3 days -Librium #Nicotine dependence. -Nicotine patch -counselled #diarrhea, suspect related to pancreatitis. R/o C. diff - send for C.diff FENPPX DVTPPX: SCD's for now. Holding Heparin SQ given bleed GI PPX: Protonix Fluids: as above Diet: NPO Lines: peripheral PT/OT: pending Code status: Full Dispo: Home after resolution of above issues Reason for Continued Hospitalization: Pancreatitis 40 minutes spent on this encounter. Discussed with RN, patient, and gastroenterology . > 50% spent on counseling and care coordination. Time of note may not reflect time patient was seen. Subjective Date patient seen: Jan 26, 2019 ROS Limited/Unobtainable: No Constitutional: Denies: no symptoms, chills, diaphoresis, fever, malaise, weakness, other HEENT: Denies: no symptoms, eye pain, blurred vision, tearing, double vision, ear pain, ear discharge, nose pain, nose congestion, throat pain, throat swelling, mouth pain, mouth swelling, other Cardiovascular: Denies: no symptoms, chest pain, edema, irregular heart rate, lightheadedness, palpitations, syncope, other Respiratory: Denies: no symptoms, cough, orthopnea, shortness of breath, SOB with excertion, SOB at rest, sputum, stridor, wheezing, other Gastrointestinal/Abdominal: Denies: no symptoms, abdomen distended, abdominal pain, black stools, tarry stools, blood in stool, constipated, diarrhea, difficulty swallowing, nausea, poor appetite, poor fluid intake, rectal bleeding , vomiting, other Genitourinary: Denies: no symptoms, burning, discharge, frequency, flank pain, hematuria, incontinence, pain, urgency, other Neurologic/Psychiatric: Denies: no symptoms, anxiety, depressed, emotional problems, headache, numbness, paresthesia, pre-existing deficit, seizure, tingling, tremors, weakness, other Endocrine: Denies: no symptoms, excessive sweating, flushing, intolerance to cold, intolerance to heat, increased hunger, increased thirst, increased urine, unexplained weight gain, unexplained weight loss, other Hematologic/Lymphatic: Denies: no symptoms, anemia, easy bleeding, easy bruising, other Allergies: Coded Allergies: No Known Allergies (Unverified , 10/05/15) Subjective seen and examined. Mother and girl friend at bedside. Had episodes of seizures last night, transferred to telemetry . stable since s/p egd s/p EGD: 1. A 3 cm hiatal hernia. 2. Gastritis, status post biopsy. 3. Mild duodenitis. Objective Last 24 Hour Vital Signs Date Time Temp Pulse Resp B/P (MAP) Pulse Ox O2 Delivery O2 Flow Rate FiO2 01/26/19 12:00 98.1 96 18 122/88 (99) 96 01/26/19 11:42 92 01/26/19 08:59 Room Air 01/26/19 08:00 99.6 86 18 111/61 (78) 99 01/26/19 07:38 112 01/26/19 05:32 105 01/26/19 04:00 97.2 105 22 135/93 (107) 99 01/26/19 00:00 97.9 105 20 117/79 (92) 99 01/25/19 21:00 Room Air 01/25/19 20:00 97.5 103 24 141/96 (111) 98 Intake and Output 01/25/19 01/26/19 19:00 07:00 Intake Total 1131 ml Balance 1131 ml IV Total 1131 ml # Voids 1 Laboratory Tests 01/26/19 06:35: White Blood Count 7.5, Red Blood Count 4.19L, Hemoglobin 11.9L, Hematocrit 37.0L , Mean Corpuscular Volume 88, Mean Corpuscular Hemoglobin 28.5, Mean Corpuscular Hemoglobin Concent 32.2, Red Cell Distribution Width 15.9H, Platelet Count 117L, Mean Platelet Volume 8.1, Neutrophils (%) (Auto) 65.0, Lymphocytes (%) (Auto) 18.6L, Monocytes (%) (Auto) 14.6H, Eosinophils (%) (Auto ) 0.7, Basophils (%) (Auto) 1.1, Sodium Level 135L, Potassium Level 3.1L, Chloride Level 98, Carbon Dioxide Level 17L, Anion Gap 20H, Blood Urea Nitrogen 3L, Creatinine 0.7, Estimat Glomerular Filtration Rate > 60, Glucose Level 68L, Calcium Level 8.1L, Total Bilirubin 1.2H, Direct Bilirubin 0.5H, Aspartate Amino Transf (AST/SGOT) 221H, Alanine Aminotransferase (ALT/SGPT) 95H, Alkaline Phosphatase 145H, Total Protein 7.8, Albumin 3.3L, Globulin 4.5, Albumin/ Globulin Ratio 0.7L 01/26/19 14:15: Urine Opiates Screen Negative, Urine Barbiturates Screen Negative, Phencyclidine (PCP) Screen Negative, Urine Amphetamines Screen Negative, Urine Benzodiazepines Screen PositiveH, Urine Cocaine Screen Negative, Urine Marijuana (THC) Screen PositiveH Height (Feet): 5 Height (Inches): 8.00 Weight (Pounds): 120 Objective General Appearance: WD/WN, no apparent distress, alert Lines, tubes and drains: peripheral HEENT: normocephalic, atraumatic, anicteric, PERRL Neck: non-tender, normal alignment, supple Respiratory/Chest: chest wall non-tender, lungs clear, normal breath sounds, no respiratory distress, no accessory muscle use Cardiovascular/Chest: normal peripheral pulses, normal rate, regular rhythm, no JVD Abdomen: normal bowel sounds, non tender, soft, no organomegaly, no mass Extremities: normal range of motion, non-tender, normal inspection Skin Exam: normal pigmentation, warm/dry Neurologic: bobcat driver/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 Jan 26, 2019 15:46
[2019-01-26 16:19] VITALS: BP 136/99
[2019-01-26] MEDS: LORazepam Inj 2mg/ml 1ml IM PRN (17:44)
--- NOTE | 2019-01-26 19:37 | NUR ---
HAND-OFF: Report given to J Carlos Alfonso.
--- NOTE | 2019-01-26 19:38 | NUR ---
NURSE NOTES: Received pt from TIERRA tretn. Pt is awake and agitated in bed with family at bedside. Tolerating room air, no c/o pain. bilateral soft wrist restraints on with 2 finger lengths space. IV sites intact and patent. Bed locked in lowest position, bed alarm on, call light within reach. Will continue with plan of care.
--- NOTE | 2019-01-27 00:22 | Initial Psychiatric Evaluation ---
Psychiatry Consultation Psychiatry Consultation Chief Complaint: Nausea, Vomiting, and Diarrhea History of Present Illness: 38-year-old, man who drinks chronically He came to the hospital with a 3-day history of nausea, vomiting. the pt is anxious and agitated no si/hi Allergies: Coded Allergies: No Known Allergies (Unverified , 10/05/15) Medication History Scheduled Chlordiazepoxide (Chlordiazepoxide HCl), 25 MG ORAL Q3HR Scheduled PRN Lorazepam* (Ativan*), 2 MG ORAL Q6HR PRN Discontinued Medications Ibuprofen (Ibuprofen), 600 MG PO Q6HR Discontinued Reason: Therapy completed Objective Data Height (Feet): 5 Height (Inches): 8.00 Weight (Pounds): 120 Appearance: disheveled Behavior Mannerisms: good eye contact Affect: constricted Mood: depressed Speech: dysarthric Suicidal Ideation: not present Assessment/Plan Problem List: (1) Alcoholic hepatitis ICD Codes: K70.10 - Alcoholic hepatitis without ascites SNOMED: 634695817 (2) Alcohol abuse ICD Codes: F10.10 - Alcohol abuse, uncomplicated SNOMED: 70271500 Status: stable, progressing Diagnosis [place] I: ativan prn folate thiamine provided ana/Bakari Lorenzo MD Jan 27, 2019 00:22
[2019-01-27 04:00] VITALS: BP 142/94
[2019-01-27] MEDS: chlordiazePOXIDE 25mg Cap ORAL SCH ×4 (05:55→23:43)
[2019-01-27 07:42] LABS: EOSINOPHILS % (AUTO) 0.4 % (0.0-3.0); HEMOGLOBIN 12.1 G/DL (14.2-18.0); LYMPHOCYTES % (AUTO) 15.7 % (20.0-45.0); MEAN CORPUSCULAR VOLUME 88 FL (80-99); MONOCYTES % (AUTO) 12.2 % (1.0-10.0); NEUTROPHILS % (AUTO) 70.6 % (45.0-75.0); PLATELET COUNT 140 K/UL (150-450); RED CELL DISTRIBUTION WIDTH 15.9 % (11.6-14.8); WHITE BLOOD COUNT 6.7 K/UL (4.8-10.8)
--- NOTE | 2019-01-27 07:44 | NUR ---
HAND-OFF: Report given to TIERRA Corey. Pt is sleeing in bed in no acute distress. Endorsed plan of care.
--- NOTE | 2019-01-27 07:45 | NUR ---
NURSE NOTES: Received pt from TIERRA Whitman. Pt is awake and agitated in bed with family at bedside. Tolerating room air, no c/o pain. bilateral soft wrist restraints on with 2 finger lengths space. IV sites intact and patent. Bed locked in lowest position, bed alarm on, call light within reach. Will continue with plan of care.
[2019-01-27 07:56] LABS: ALANINE AMINOTRANSFERASE 119 U/L (12-78); ALBUMIN 3.2 G/DL (3.4-5.0); ALBUMIN/GLOBULIN RATIO 0.7 (1.0-2.7); ALKALINE PHOSPHATASE 172 U/L (46-116); ANION GAP 17 mmol/L (5-15); ASPARTATE AMINO TRANSFERASE 273 U/L (15-37); BILIRUBIN,TOTAL 1.1 MG/DL (0.2-1.0); BLOOD UREA NITROGEN 1 mg/dL (7-18); CARBON DIOXIDE 20 MMOL/L (21-32); CHLORIDE 99 MMOL/L (98-107); CREATININE 0.6 MG/DL (0.55-1.30); POTASSIUM 2.9 MMOL/L (3.5-5.1); SODIUM 135 MMOL/L (136-145)
[2019-01-27 07:58] LABS: BILIRUBIN,DIRECT 0.6 MG/DL (0.0-0.3)
[2019-01-27 08:00] VITALS: BP 133/86
--- NOTE | 2019-01-27 09:01 | General Progress Note ---
Assessment/Plan Problem List: (1) Alcohol abuse ICD Codes: F10.10 - Alcohol abuse, uncomplicated SNOMED: 30002384 (2) Pancreatitis ICD Codes: K85.90 - Acute pancreatitis without necrosis or infection, unspecified SNOMED: 23852391 Qualifiers: Qualified Codes: K85.20 - Alcohol induced acute pancreatitis without necrosis or infection (3) Alcoholic hepatitis ICD Codes: K70.10 - Alcoholic hepatitis without ascites SNOMED: 428161204 (4) Thrombocytopenia ICD Codes: D69.6 - Thrombocytopenia, unspecified SNOMED: 217800828 (5) Upper GI bleed ICD Codes: K92.2 - Gastrointestinal hemorrhage, unspecified SNOMED: 71031819 Status: stable Assessment/Plan: This is a 38-year-old male with a history of alcohol dependence presenting with alcoholic pancreatitis, upper GI bleed, alcoholic hepatitis. #Acute pancreatitis, suspect alcohol induced. -IV normal saline at 200 cc/h -N.P.o. diet advanced, tolerating -Dilaudid for pain management -Appreciate GI recommendations: Dr. Grey -abdominal ultrasound reviewed #Upper GI bleed -Trend CBC -occult blood -Appreciate GI recommendation -Protonix 40 mg IV twice daily -s/p Octreotide GTT for possible varices -Rocephin 1 g IV every 24 hours (01/24 - ) s/p EGD: 1. A 3 cm hiatal hernia. 2. Gastritis, status post biopsy. 3. Mild duodenitis. #Alcoholic hepatitis. AST 2X>ALT. - improving #EtOH dependence #Suspect possible underlying cirrhosis #Etoh withdrawal seizures > Maddrey discrimant function 0.3. Good prognosis >last drink 01/23/19 >no history of withdrawal, seizures or DT's, now with seizures -> tele -No steroids indicated -Continue to trend LFTs -Appreciate GI recommendations -abdominal US to eval for cirrhosis as above--> Fatty liver, pancreatitis -CIWAA protocol for withdrawal -ativan PRN -banana bag x 3 days -Librium #Nicotine dependence. -Nicotine patch -counselled #diarrhea, suspect related to pancreatitis. C. diff ruled out #hypokalemia, hypomagnesemia -replace prn FENPPX DVTPPX: SCD's for now. Holding Heparin SQ given bleed GI PPX: Protonix Fluids: as above Diet: NPO Lines: peripheral PT/OT: pending Code status: Full Dispo: Home after resolution of above issues Reason for Continued Hospitalization: Pancreatitis, GI bleed 40 minutes spent on this encounter. Discussed with RN, patient, and gastroenterology . > 50% spent on counseling and care coordination. Time of note may not reflect time patient was seen. Subjective Date patient seen: Jan 27, 2019 ROS Limited/Unobtainable: No Constitutional: Denies: no symptoms, chills, diaphoresis, fever, malaise, weakness, other HEENT: Denies: no symptoms, eye pain, blurred vision, tearing, double vision, ear pain, ear discharge, nose pain, nose congestion, throat pain, throat swelling, mouth pain, mouth swelling, other Cardiovascular: Denies: no symptoms, chest pain, edema, irregular heart rate, lightheadedness, palpitations, syncope, other Respiratory: Denies: no symptoms, cough, orthopnea, shortness of breath, SOB with excertion, SOB at rest, sputum, stridor, wheezing, other Gastrointestinal/Abdominal: Denies: no symptoms, abdomen distended, abdominal pain, black stools, tarry stools, blood in stool, constipated, diarrhea, difficulty swallowing, nausea, poor appetite, poor fluid intake, rectal bleeding , vomiting, other Genitourinary: Denies: no symptoms, burning, discharge, frequency, flank pain, hematuria, incontinence, pain, urgency, other Endocrine: Denies: no symptoms, excessive sweating, flushing, intolerance to cold, intolerance to heat, increased hunger, increased thirst, increased urine, unexplained weight gain, unexplained weight loss, other Hematologic/Lymphatic: Denies: no symptoms, anemia, easy bleeding, easy bruising, other Allergies: Coded Allergies: No Known Allergies (Unverified , 10/05/15) Subjective seen and examined. initially sleeping comfortably, has no complaints. Objective Last 24 Hour Vital Signs Date Time Temp Pulse Resp B/P (MAP) Pulse Ox O2 Delivery O2 Flow Rate FiO2 01/27/19 04:00 96 01/27/19 04:00 97.2 96 24 142/94 (110) 95 01/27/19 00:00 121 01/27/19 00:00 121 01/26/19 21:00 Room Air 01/26/19 20:00 116 01/26/19 20:00 116 01/26/19 16:22 111 01/26/19 16:19 97.9 109 18 136/99 (111) 98 01/26/19 12:00 98.1 96 18 122/88 (99) 96 01/26/19 11:42 92 Intake and Output 01/26/19 01/27/19 19:00 07:00 Intake Total 360 ml 850 ml Output Total 900 ml 2500 ml Balance -540 ml -1650 ml Intake Oral 360 ml 850 ml Output Urine Total 900 ml 2500 ml # Voids 1 Laboratory Tests 01/26/19 14:15: Urine Opiates Screen Negative, Urine Barbiturates Screen Negative, Phencyclidine (PCP) Screen Negative, Urine Amphetamines Screen Negative, Urine Benzodiazepines Screen PositiveH, Urine Cocaine Screen Negative, Urine Marijuana (THC) Screen PositiveH 01/27/19 06:57: White Blood Count 6.7, Red Blood Count 4.20L, Hemoglobin 12.1L, Hematocrit 37.0L , Mean Corpuscular Volume 88, Mean Corpuscular Hemoglobin 28.8, Mean Corpuscular Hemoglobin Concent 32.8, Red Cell Distribution Width 15.9H, Platelet Count 140L, Mean Platelet Volume 7.7, Neutrophils (%) (Auto) 70.6, Lymphocytes (%) (Auto) 15.7L, Monocytes (%) (Auto) 12.2H, Eosinophils (%) (Auto ) 0.4, Basophils (%) (Auto) 1.0, Sodium Level 135L, Potassium Level 2.9L, Chloride Level 99, Carbon Dioxide Level 20L, Anion Gap 17H, Blood Urea Nitrogen 1L, Creatinine 0.6, Estimat Glomerular Filtration Rate > 60, Glucose Level 114H , Calcium Level 8.0L, Magnesium Level 1.6L, Total Bilirubin 1.1H, Direct Bilirubin 0.6H, Aspartate Amino Transf (AST/SGOT) 273H, Alanine Aminotransferase (ALT/SGPT) 119H, Alkaline Phosphatase 172H, Total Protein 7.6, Albumin 3.2L, Globulin 4.4, Albumin/Globulin Ratio 0.7L, Hepatitis A IgM Antibody [Pending], Hepatitis B Surface Antigen [Pending], Hepatitis B Core IgM Antibody [Pending], Hepatitis C Antibody [Pending] Height (Feet): 5 Height (Inches): 8.00 Weight (Pounds): 122 Objective General Appearance: WD/WN, no apparent distress, alert Lines, tubes and drains: peripheral HEENT: normocephalic, atraumatic, anicteric, PERRL Neck: non-tender, normal alignment, supple Respiratory/Chest: chest wall non-tender, lungs clear, normal breath sounds, no respiratory distress, no accessory muscle use Cardiovascular/Chest: normal peripheral pulses, normal rate, regular rhythm, no JVD Abdomen: normal bowel sounds, non tender, soft, no organomegaly, no mass Extremities: normal range of motion, non-tender, normal inspection Skin Exam: normal pigmentation, warm/dry Neurologic: collection manager II-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 Jan 27, 2019 09:01
[2019-01-27] MEDS: Pantoprazole Inj IVP SCH ×2 (09:09→21:42)
--- NOTE | 2019-01-27 09:38 | NUR ---
*-* INSURANCE *-* ALL AVAILABLE CLINICALS HAVE BEEN FAXED TO: [facility]YD[facility] MACK CM: Andrea #[phone] ext [phone]
[2019-01-27] MEDS: Octreotide Acetate 500 MCG in Sodium Chloride 499 ML IV SCH ×2 (10:44→17:37)
[2019-01-27] MEDS: Thiamine HCl 100 MG in D5W 55 ML IVPB SCH (11:23)
[2019-01-27 12:00] VITALS: BP 139/87
--- NOTE | 2019-01-27 12:05 | General Progress Note ---
Assessment/Plan Problem List: (1) Upper GI bleed ICD Codes: K92.2 - Gastrointestinal hemorrhage, unspecified SNOMED: 61120990 (2) Thrombocytopenia ICD Codes: D69.6 - Thrombocytopenia, unspecified SNOMED: 827517910 (3) Alcoholic hepatitis ICD Codes: K70.10 - Alcoholic hepatitis without ascites SNOMED: 557006383 (4) Pancreatitis ICD Codes: K85.90 - Acute pancreatitis without necrosis or infection, unspecified SNOMED: 35070217 Qualifiers: Qualified Codes: K85.20 - Alcohol induced acute pancreatitis without necrosis or infection (5) Alcohol abuse ICD Codes: F10.10 - Alcohol abuse, uncomplicated SNOMED: 74244519 Status: stable Assessment/Plan: s/p EGD: SUMMARY OF FINDINGS: 1. A 3 cm hiatal hernia. 2. Gastritis, status post biopsy. 3. Mild duodenitis. ppi repeat labs supportive care patient eating with the family Ensure 3 x per day Subjective ROS Limited/Unobtainable: Yes Allergies: Coded Allergies: No Known Allergies (Unverified , 10/05/15) Objective Last 24 Hour Vital Signs Date Time Temp Pulse Resp B/P (MAP) Pulse Ox O2 Delivery O2 Flow Rate FiO2 01/27/19 04:00 96 01/27/19 04:00 97.2 96 24 142/94 (110) 95 01/27/19 00:00 121 01/27/19 00:00 121 01/26/19 21:00 Room Air 01/26/19 20:00 116 01/26/19 20:00 116 01/26/19 16:22 111 01/26/19 16:19 97.9 109 18 136/99 (111) 98 Intake and Output 01/26/19 01/27/19 19:00 07:00 Intake Total 360 ml 850 ml Output Total 900 ml 2500 ml Balance -540 ml -1650 ml Intake Oral 360 ml 850 ml Output Urine Total 900 ml 2500 ml # Voids 1 Laboratory Tests 01/26/19 14:15: Urine Opiates Screen Negative, Urine Barbiturates Screen Negative, Phencyclidine (PCP) Screen Negative, Urine Amphetamines Screen Negative, Urine Benzodiazepines Screen PositiveH, Urine Cocaine Screen Negative, Urine Marijuana (THC) Screen PositiveH 01/27/19 06:57: White Blood Count 6.7, Red Blood Count 4.20L, Hemoglobin 12.1L, Hematocrit 37.0L , Mean Corpuscular Volume 88, Mean Corpuscular Hemoglobin 28.8, Mean Corpuscular Hemoglobin Concent 32.8, Red Cell Distribution Width 15.9H, Platelet Count 140L, Mean Platelet Volume 7.7, Neutrophils (%) (Auto) 70.6, Lymphocytes (%) (Auto) 15.7L, Monocytes (%) (Auto) 12.2H, Eosinophils (%) (Auto ) 0.4, Basophils (%) (Auto) 1.0, Sodium Level 135L, Potassium Level 2.9L, Chloride Level 99, Carbon Dioxide Level 20L, Anion Gap 17H, Blood Urea Nitrogen 1L, Creatinine 0.6, Estimat Glomerular Filtration Rate > 60, Glucose Level 114H , Calcium Level 8.0L, Magnesium Level 1.6L, Total Bilirubin 1.1H, Direct Bilirubin 0.6H, Aspartate Amino Transf (AST/SGOT) 273H, Alanine Aminotransferase (ALT/SGPT) 119H, Alkaline Phosphatase 172H, Total Protein 7.6, Albumin 3.2L, Globulin 4.4, Albumin/Globulin Ratio 0.7L, Hepatitis A IgM Antibody [Pending], Hepatitis B Surface Antigen [Pending], Hepatitis B Core IgM Antibody [Pending], Hepatitis C Antibody [Pending] Height (Feet): 5 Height (Inches): 8.00 Weight (Pounds): 122 General Appearance: alert EENT: normal ENT inspection Neck: supple Cardiovascular: normal rate Respiratory/Chest: decreased breath sounds Abdomen: normal bowel sounds, non tender, soft Extremities: non-tender Steven Grey MD Jan 27, 2019 12:05
[2019-01-27 16:00] VITALS: BP 137/89
--- NOTE | 2019-01-27 19:33 | NUR ---
HAND-OFF: Report given to TIERRA Delvalle. Patient is in stable condition.
[2019-01-27 20:00] VITALS: BP 117/81
--- NOTE | 2019-01-27 20:01 | NUR ---
NURSE NOTES: Report received from Alisia RN. Patient is observed in bed, awake, alert, oriented, and able to make needs known. Respiratory even and unlabored. IV site is asymptomatic, patent, and intact. IVF is running at a prescribed rate. Denies pain at this time. Bed is in lowest position with side rails up x2 and brakes are engaged. Bed alarm is on. Encouraged pt to use call light when in need of assistance; pt verbalized understanding. Will continue to monitor.
[2019-01-27] MEDS: LORazepam 1mg tab ORAL PRN (21:44)
--- NOTE | 2019-01-27 21:45 | Progress Note ---
DATE: 01/27/2019 SUBJECTIVE: The patient is in bed, no acute distress noted, continues to be easily agitated, still withdrawing from alcohol. The patient admits to Ativan administration. The patient is disoriented and unable to answer the questions. MENTAL STATUS EXAMINATION: Alert. He knows he is in the hospital and he knows his name. Mood is neutral to anxious. He was agitated this morning. Affect is constricted. Congruent mood. Thought process is concrete. Thought content, no suicidal or homicidal ideation. Cognition is impaired. ASSESSMENT: 1. Alcohol dependence. 2. Alcohol withdrawal. PLAN: 1. We will continue the Ativan. 2. Provide the patient with reality orientation and supportive therapy. Bakari Baxter M.D. DR: Juanita JOB#: [id number] CC:
[2019-01-28] VITALS: BP 124/86
--- NOTE | 2019-01-28 | NUR ---
NURSE NOTES: Patient is observed in bed, asleep but arousable by voice. Denies pain at this time. No seizure activity noted. Will continue to monitor.
[2019-01-28] MEDS: LORazepam Inj 2mg/ml 1ml IM PRN ×2 (01:47→23:18)
--- NOTE | 2019-01-28 02:48 | NUR ---
NURSE NOTES: Patient is restless and attempting to get out of bed. Patient is confused and agitated. Patient still warrants use of restraints at this time. Will continue to monitor.
[2019-01-28] MEDS: Octreotide Acetate 500 MCG in Sodium Chloride 499 ML IV SCH ×2 (03:33→12:26)
[2019-01-28 04:00] VITALS: BP 136/90
[2019-01-28] MEDS: chlordiazePOXIDE 25mg Cap ORAL SCH ×3 (05:11→18:13)
--- NOTE | 2019-01-28 06:44 | NUR ---
NURSE NOTES: Patient is refusing care at this time. Attempted to clean the patient, however, patient is combative.
--- NOTE | 2019-01-28 07:10 | NUR ---
NURSE NOTES: Received pt from TIERRA Delvalle. Pt is awake and agitated in bed. Tolerating room air, no c/o pain. bilateral soft wrist restraints on with 2 finger lengths space. IV sites intact and patent. Bed locked in lowest position, bed alarm on, call light within reach. Will continue with the plan of care.
--- NOTE | 2019-01-28 07:12 | NUR ---
HAND-OFF: Report given to Alisia MAYORGA. Patient is in stable condition.
[2019-01-28 08:00] VITALS: BP 138/98
[2019-01-28 08:37] LABS: BASOPHILS % (AUTO) 0.8 % (0.0-2.0); EOSINOPHILS % (AUTO) 1.4 % (0.0-3.0); HEMATOCRIT 34.9 % (42.0-52.0); HEMOGLOBIN 11.4 G/DL (14.2-18.0); LYMPHOCYTES % (AUTO) 24.7 % (20.0-45.0); MEAN CORPUSCULAR VOLUME 88 FL (80-99); MONOCYTES % (AUTO) 18.4 % (1.0-10.0); NEUTROPHILS % (AUTO) 54.6 % (45.0-75.0); PLATELET COUNT 135 K/UL (150-450); RED BLOOD COUNT 3.97 M/UL (4.70-6.10); RED CELL DISTRIBUTION WIDTH 16.2 % (11.6-14.8); WHITE BLOOD COUNT 5.8 K/UL (4.8-10.8)
[2019-01-28] MEDS: Pantoprazole Inj IVP SCH ×2 (08:38→21:41)
[2019-01-28 08:59] LABS: ALANINE AMINOTRANSFERASE 119 U/L (12-78); ALBUMIN 2.8 G/DL (3.4-5.0); ALBUMIN/GLOBULIN RATIO 0.7 (1.0-2.7); ALKALINE PHOSPHATASE 202 U/L (46-116); AMYLASE 278 U/L (25-115); ANION GAP 9 mmol/L (5-15); ASPARTATE AMINO TRANSFERASE 285 U/L (15-37); BILIRUBIN,TOTAL 0.6 MG/DL (0.2-1.0); BLOOD UREA NITROGEN 1 mg/dL (7-18); CALCIUM 8.4 MG/DL (8.5-10.1); CARBON DIOXIDE 25 MMOL/L (21-32); CHLORIDE 105 MMOL/L (98-107); CREATININE 0.5 MG/DL (0.55-1.30); POTASSIUM 3.3 MMOL/L (3.5-5.1); SODIUM 139 MMOL/L (136-145)
--- NOTE | 2019-01-28 10:32 | General Progress Note ---
Assessment/Plan Problem List: (1) Alcohol abuse ICD Codes: F10.10 - Alcohol abuse, uncomplicated SNOMED: 80604567 (2) Pancreatitis ICD Codes: K85.90 - Acute pancreatitis without necrosis or infection, unspecified SNOMED: 63479228 Qualifiers: Qualified Codes: K85.20 - Alcohol induced acute pancreatitis without necrosis or infection (3) Alcoholic hepatitis ICD Codes: K70.10 - Alcoholic hepatitis without ascites SNOMED: 233308582 (4) Thrombocytopenia ICD Codes: D69.6 - Thrombocytopenia, unspecified SNOMED: 433129412 (5) Upper GI bleed ICD Codes: K92.2 - Gastrointestinal hemorrhage, unspecified SNOMED: 83948511 Status: stable Assessment/Plan: This is a 38-year-old male with a history of alcohol dependence presenting with alcoholic pancreatitis, upper GI bleed, alcoholic hepatitis. #Acute pancreatitis, suspect alcohol induced. resolving -IV normal saline at 200 cc/h -N.P.o. diet advanced, tolerating -Dilaudid for pain management -Appreciate GI recommendations: Dr. Grey -abdominal ultrasound reviewed #Upper GI bleed -Trend CBC -occult blood -Appreciate GI recommendation -Protonix 40 mg IV twice daily -s/p Octreotide GTT for possible varices -s/p Rocephin 1 g IV every 24 hours s/p EGD: 1. A 3 cm hiatal hernia. 2. Gastritis, status post biopsy. 3. Mild duodenitis. #Alcoholic hepatitis. AST 2X>ALT. - improving #EtOH dependence #Suspect possible underlying cirrhosis #Etoh withdrawal seizures > Maddrey discrimant function 0.3. Good prognosis >last drink 01/23/19 >no history of withdrawal, seizures or DT's, now with seizures -> tele -No steroids indicated -Continue to trend LFTs -Appreciate GI recommendations -abdominal US to eval for cirrhosis as above--> Fatty liver, pancreatitis -CIWAA protocol for withdrawal -ativan PRN -banana bag x 3 days -Librium #Nicotine dependence -Nicotine patch -counselled #diarrhea, suspect related to pancreatitis. C. diff ruled out #hypokalemia, hypomagnesemia -replace prn FENPPX DVTPPX: SCD's for now. Holding Heparin SQ given bleed GI PPX: Protonix Fluids: as above Diet: NPO Lines: peripheral PT/OT: pending Code status: Full Dispo: Home after resolution of above issues Reason for Continued Hospitalization: Pancreatitis, GI bleed, estimated discharge 01/29 40 minutes spent on this encounter. Discussed with RN, patient, and gastroenterology . > 50% spent on counseling and care coordination. Time of note may not reflect time patient was seen. Subjective Date patient seen: Jan 28, 2019 ROS Limited/Unobtainable: No Constitutional: Denies: no symptoms, chills, diaphoresis, fever, malaise, weakness, other HEENT: Denies: no symptoms, eye pain, blurred vision, tearing, double vision, ear pain, ear discharge, nose pain, nose congestion, throat pain, throat swelling, mouth pain, mouth swelling, other Cardiovascular: Denies: no symptoms, chest pain, edema, irregular heart rate, lightheadedness, palpitations, syncope, other Respiratory: Denies: no symptoms, cough, orthopnea, shortness of breath, SOB with excertion, SOB at rest, sputum, stridor, wheezing, other Gastrointestinal/Abdominal: Denies: no symptoms, abdomen distended, abdominal pain, black stools, tarry stools, blood in stool, constipated, diarrhea, difficulty swallowing, nausea, poor appetite, poor fluid intake, rectal bleeding , vomiting, other Genitourinary: Denies: no symptoms, burning, discharge, frequency, flank pain, hematuria, incontinence, pain, urgency, other Neurologic/Psychiatric: Denies: no symptoms, anxiety, depressed, emotional problems, headache, numbness, paresthesia, pre-existing deficit, seizure, tingling, tremors, weakness, other Endocrine: Denies: no symptoms, excessive sweating, flushing, intolerance to cold, intolerance to heat, increased hunger, increased thirst, increased urine, unexplained weight gain, unexplained weight loss, other Allergies: Coded Allergies: No Known Allergies (Unverified , 10/05/15) Subjective seen and examined. initially sleeping comfortably, has no complaints. mom at bedside. Objective Last 24 Hour Vital Signs Date Time Temp Pulse Resp B/P (MAP) Pulse Ox O2 Delivery O2 Flow Rate FiO2 01/28/19 09:00 Room Air 01/28/19 08:00 98.3 85 19 138/98 (111) 100 01/28/19 08:00 85 01/28/19 04:00 97.7 98 20 136/90 (105) 100 01/28/19 03:53 100 01/28/19 00:00 97.9 98 20 124/86 (99) 100 01/27/19 23:36 115 01/27/19 20:16 Room Air 01/27/19 20:00 97.9 102 20 117/81 (93) 100 01/27/19 19:00 85 01/27/19 16:00 85 01/27/19 16:00 97.8 85 20 137/89 (105) 96 01/27/19 12:00 73 01/27/19 12:00 97.5 73 20 139/87 (104) 95 Intake and Output 01/27/19 01/28/19 18:59 06:59 Intake Total 360 ml 474 ml Output Total 1900 ml 800 ml Balance -1540 ml -326 ml Intake Oral 360 ml 474 ml Output Urine Total 1900 ml 800 ml Laboratory Tests 01/28/19 07:50: White Blood Count 5.8, Red Blood Count 3.97L, Hemoglobin 11.4L, Hematocrit 34.9L , Mean Corpuscular Volume 88, Mean Corpuscular Hemoglobin 28.7, Mean Corpuscular Hemoglobin Concent 32.7, Red Cell Distribution Width 16.2H, Platelet Count 135L, Mean Platelet Volume 6.9, Neutrophils (%) (Auto) 54.6, Lymphocytes (%) (Auto) 24.7, Monocytes (%) (Auto) 18.4H, Eosinophils (%) (Auto) 1.4, Basophils (%) (Auto) 0.8, Sodium Level 139, Potassium Level 3.3L, Chloride Level 105, Carbon Dioxide Level 25, Anion Gap 9, Blood Urea Nitrogen 1L, Creatinine 0.5L, Estimat Glomerular Filtration Rate > 60, Glucose Level 160H, Calcium Level 8.4L, Total Bilirubin 0.6, Aspartate Amino Transf (AST/SGOT) 285H , Alanine Aminotransferase (ALT/SGPT) 119H, Alkaline Phosphatase 202H, Total Protein 6.9, Albumin 2.8L, Globulin 4.1, Albumin/Globulin Ratio 0.7L, Amylase Level 278H, Lipase 1094H Height (Feet): 5 Height (Inches): 8.00 Weight (Pounds): 122 Objective General Appearance: WD/WN, no apparent distress, alert Lines, tubes and drains: peripheral HEENT: normocephalic, atraumatic, anicteric, PERRL Neck: non-tender, normal alignment, supple Respiratory/Chest: chest wall non-tender, lungs clear, normal breath sounds, no respiratory distress, no accessory muscle use Cardiovascular/Chest: normal peripheral pulses, normal rate, regular rhythm, no JVD Abdomen: normal bowel sounds, non tender, soft, no organomegaly, no mass Extremities: normal range of motion, non-tender, normal inspection Skin Exam: normal pigmentation, warm/dry Neurologic: rn cardiac II-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 Jan 28, 2019 10:32
--- NOTE | 2019-01-28 10:58 | General Progress Note ---
Assessment/Plan Problem List: (1) Upper GI bleed ICD Codes: K92.2 - Gastrointestinal hemorrhage, unspecified SNOMED: 55563490 (2) Thrombocytopenia ICD Codes: D69.6 - Thrombocytopenia, unspecified SNOMED: 957847954 (3) Alcoholic hepatitis ICD Codes: K70.10 - Alcoholic hepatitis without ascites SNOMED: 530832560 (4) Pancreatitis ICD Codes: K85.90 - Acute pancreatitis without necrosis or infection, unspecified SNOMED: 16929818 Qualifiers: Qualified Codes: K85.20 - Alcohol induced acute pancreatitis without necrosis or infection (5) Alcohol abuse ICD Codes: F10.10 - Alcohol abuse, uncomplicated SNOMED: 42929598 Status: stable Assessment/Plan: s/p EGD: SUMMARY OF FINDINGS: 1. A 3 cm hiatal hernia. 2. Gastritis, status post biopsy. 3. Mild duodenitis. ppi repeat labs supportive care patient eating with the family Ensure 3 x per day ? acute hep A repeat LFTS Subjective Allergies: Coded Allergies: No Known Allergies (Unverified , 10/05/15) Objective Last 24 Hour Vital Signs Date Time Temp Pulse Resp B/P (MAP) Pulse Ox O2 Delivery O2 Flow Rate FiO2 01/28/19 09:00 Room Air 01/28/19 08:00 98.3 85 19 138/98 (111) 100 01/28/19 08:00 85 01/28/19 04:00 97.7 98 20 136/90 (105) 100 01/28/19 03:53 100 01/28/19 00:00 97.9 98 20 124/86 (99) 100 01/27/19 23:36 115 01/27/19 20:16 Room Air 01/27/19 20:00 97.9 102 20 117/81 (93) 100 01/27/19 19:00 85 01/27/19 16:00 85 01/27/19 16:00 97.8 85 20 137/89 (105) 96 01/27/19 12:00 73 01/27/19 12:00 97.5 73 20 139/87 (104) 95 Intake and Output 01/27/19 01/28/19 18:59 06:59 Intake Total 360 ml 474 ml Output Total 1900 ml 800 ml Balance -1540 ml -326 ml Intake Oral 360 ml 474 ml Output Urine Total 1900 ml 800 ml Laboratory Tests 01/28/19 07:50: White Blood Count 5.8, Red Blood Count 3.97L, Hemoglobin 11.4L, Hematocrit 34.9L , Mean Corpuscular Volume 88, Mean Corpuscular Hemoglobin 28.7, Mean Corpuscular Hemoglobin Concent 32.7, Red Cell Distribution Width 16.2H, Platelet Count 135L, Mean Platelet Volume 6.9, Neutrophils (%) (Auto) 54.6, Lymphocytes (%) (Auto) 24.7, Monocytes (%) (Auto) 18.4H, Eosinophils (%) (Auto) 1.4, Basophils (%) (Auto) 0.8, Sodium Level 139, Potassium Level 3.3L, Chloride Level 105, Carbon Dioxide Level 25, Anion Gap 9, Blood Urea Nitrogen 1L, Creatinine 0.5L, Estimat Glomerular Filtration Rate > 60, Glucose Level 160H, Calcium Level 8.4L, Total Bilirubin 0.6, Aspartate Amino Transf (AST/SGOT) 285H , Alanine Aminotransferase (ALT/SGPT) 119H, Alkaline Phosphatase 202H, Total Protein 6.9, Albumin 2.8L, Globulin 4.1, Albumin/Globulin Ratio 0.7L, Amylase Level 278H, Lipase 1094H Height (Feet): 5 Height (Inches): 8.00 Weight (Pounds): 122 General Appearance: no apparent distress EENT: normal ENT inspection Neck: supple Cardiovascular: normal rate Respiratory/Chest: decreased breath sounds Abdomen: normal bowel sounds, non tender, soft Extremities: non-tender Steven Grey MD Jan 28, 2019 10:58
--- NOTE | 2019-01-28 11:33 | NUR ---
P.T Note: Pt in stable condition and cleared for P.T per nurse however RN requested to hold P.T at this time as pt is restless and uncooperative. Pt is currently on wrist restrain. Family member/fiance' present.
[2019-01-28 11:51] VITALS: BP 135/94
--- NOTE | 2019-01-28 12:18 | NUR ---
RD ASSESSMENT & RECOMMENDATIONS SEE CARE ACTIVITY FOR COMPLETE ASSESSMENT DAILY ESTIMATED NEEDS: Needs based on Pancreatitis, underweight 55kg 30-35 kcals/kg 1797-2908 total kcals 1-1.5 g protein/kg 55-83 g total protein 25-30 mL/kg 2795-7481 total fluid mLs NUTRITION DIAGNOSIS: Increased kcal needs r/t h/o ETOH abuse, underweight status as evidenced by pt w/ reported chronic alcohol use, adm w/ blood alcohol level of 293, BMI underweight per guidelines, pt is 79% of [place] body weight. CURRENT DIET: Regular PO DIET RECOMMENDATIONS: SOFT DIET/ LOW FAT (d/t elev lipase) ADDITIONAL RECOMMENDATIONS: 1) Monitor lipase, trend (1634 ->1094) and PO tolerance 2) Check lytes daily, replete as needed (Low Mg, K, phos) 3) Obtain a standing weight as able or calibrated bedscale wt -> pt adm w/ reported wt loss 4) Add Ensure Enlive TID w/ meals w/ poor PO 5) Rec to add MVI + Folate (pt already on vitamin B1) 5) Check A1C for eval of BG control. Monitor BGs closely
[2019-01-28] MEDS: Thiamine HCl 100 MG in D5W 55 ML IVPB SCH (12:54)
[2019-01-28 16:00] VITALS: BP 144/98
--- NOTE | 2019-01-28 19:40 | NUR ---
NURSE NOTES: Received report from TIERRA Corey. Patient is awake, lying in semi bobby's; resting comfortably. A/Ox3 with some confusion. Denies pain at this time. No signs of acute distress noted. Padded siderails on for seizure precaution. Checked IV site and flushed. No erythema, bleeding or infiltration noted. On bilateral soft wrist restraint. With good circulation, mobility and skin condition noted. Bed at lowest position, brakes on, siderailsx3. Call light within reach. Will continue to monitor.
--- NOTE | 2019-01-28 19:48 | NUR ---
HAND-OFF: Report given to TIERRA Goodman. Endorsed plan of care.
[2019-01-28 20:00] VITALS: BP 129/94
[2019-01-28] MEDS: LORazepam 1mg tab ORAL PRN (21:56)
--- NOTE | 2019-01-28 23:00 | NUR ---
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 Paged Dr. Wilkes's office and spoke with Macey, regarding patient's HR.
--- NOTE | 2019-01-28 23:10 | NUR ---
NURSE NOTES: Spoke with Dr. Grey, reported on patient's condition. Agitation noted, A/Ox3 with periods of confusion, vital signs stable, radial pulse of [address] Grey, to remove nicotine patch and give ativan IM as ordered. Noted and carried out. Will continue to monitor.
[2019-01-29] VITALS: BP 138/99
[2019-01-29] MEDS: chlordiazePOXIDE 25mg Cap ORAL SCH ×2 (00:06→05:38)
[2019-01-29] MEDS: Octreotide Acetate 500 MCG in Sodium Chloride 499 ML IV SCH (00:06)
--- NOTE | 2019-01-29 01:42 | NUR ---
NURSE NOTES: Patient is awake, resting comfortably. No significant change of condition noted. Will continue to monitor.
[2019-01-29 04:00] VITALS: BP 134/99
[2019-01-29 06:48] LABS: HEMATOCRIT 34.2 % (42.0-52.0); HEMOGLOBIN 10.9 G/DL (14.2-18.0); MEAN CORPUSCULAR VOLUME 89 FL (80-99); PLATELET COUNT 152 K/UL (150-450); RED BLOOD COUNT 3.84 M/UL (4.70-6.10); RED CELL DISTRIBUTION WIDTH 16.5 % (11.6-14.8); WHITE BLOOD COUNT 5.1 K/UL (4.8-10.8)
[2019-01-29 07:24] LABS: ALANINE AMINOTRANSFERASE 114 U/L (12-78); ALBUMIN 2.7 G/DL (3.4-5.0); ALBUMIN/GLOBULIN RATIO 0.7 (1.0-2.7); ALKALINE PHOSPHATASE 170 U/L (46-116); ANION GAP 10 mmol/L (5-15); ASPARTATE AMINO TRANSFERASE 223 U/L (15-37); BILIRUBIN,TOTAL 0.6 MG/DL (0.2-1.0); BLOOD UREA NITROGEN 1 mg/dL (7-18); CALCIUM 8.2 MG/DL (8.5-10.1); CARBON DIOXIDE 26 MMOL/L (21-32); CHLORIDE 104 MMOL/L (98-107); CREATININE 0.5 MG/DL (0.55-1.30); POTASSIUM 3.5 MMOL/L (3.5-5.1); SODIUM 139 MMOL/L (136-145)
--- NOTE | 2019-01-29 07:30 | NUR ---
HAND-OFF: Report given to TIERRA Ward. Plan of care endorsed.
--- NOTE | 2019-01-29 07:41 | NUR ---
NURSE NOTES: Received report from TIERRA Goodman. Patient is asleep currently. Restraints checked on bilat wrists--hands warm and restraints not tight with radial pulses palpable. Restraints reordered per sammi MAYORGA at 450am. Cuirently HR 85. Patient appeared comfortable, breathing easily on RA and no sign of cardiac distress and no signs of seizure activity. Seizure precautions in place with padding. Bed in lowest, locked position with bed alarm on. Cont'd with plan of care.
[2019-01-29 08:00] VITALS: BP 136/93
[2019-01-29] MEDS: Pantoprazole Inj IVP SCH (08:15)
--- NOTE | 2019-01-29 09:13 | NUR ---
NURSE NOTES: Spoke with Dr Grey --patient dc ed to home with mother at bedside currently. Verbal to dc restraints and stop all iv meds. at 910am. Removed tele, removed condom cath. patient able to answer questions with calm, coherent answers. Patient stated "about time I got out of here."
[2019-01-29] MEDS ORDERED: VITAMIN B-1100 MG ORAL (09:15)
[2019-01-29] MEDS ORDERED: MIRTAZAPINE15 M3 ORAL (09:15)
[2019-01-29] MEDS ORDERED: LIBRIUM25 MG ORAL (09:15)
[2019-01-29] MEDS ORDERED: PANTOPRAZOLE SO20 MG ORAL (09:15)
[2019-01-29] MEDS ORDERED: ATIVAN1 MG ORAL (09:15)
--- NOTE | 2019-01-29 09:40 | NUR ---
NURSE NOTES: Unsteady gait--RN informed Dr Grey patient needs PT evaluation before dc to ensure safety. Patient observed weak and unbalanced but able to walk to toilet [facility]. Calling PT now. Addendum: 01/29/19 at 0953 by Junior Myers RN Kenroy roberson PT arrived and is evaluating patient currently.
--- NOTE | 2019-01-29 09:53 | NUR ---
NURSE NOTES: Patient is disconnected from tele, IVF, restraints per Dr to eval stability for dc. Mother at bedside. New yellow socks. Bed alarm on. Bed in lowest locked position. Patient toileted. Denies pain. AOX3 with calm affect. Siderails up x3. Charting near room to increase safety.
--- NOTE | 2019-01-29 10:14 | NUR ---
NURSE NOTES: Spoke with Dr Grey that PT (Kenroy) told this RN that he recommends Short term rehab /SNF for patient for safety with walking. (see PT note forthcoming). Dr Grey told this RN that she is in touch with CM to relay message to determine if we can get patient to phys rehab facility today.
--- NOTE | 2019-01-29 10:28 | NUR ---
P.T Note: Pt seen this AM with mother present. Pt is alert, oriented to self and place but not to time and current situation. No c/o pain but reports generalized weakness. Tx consisted of ADL/functional mobility training , balance/coordination and gait training. Pt tolerated tx session well. Pt is limited by poor balance and coordination as well poor focus on safety as evidenced by impulsivity. Pt is independent in bed mobility but requires MIN A x 1 and constant verbal and manual redirections for OOB to chair transfers. Pt was able to ambulate 15 ft using the FWW. Gait is very unsteady with BLE poorly coordinated. MOD A X 1 and constant verbal and manual redirection needed to maintain ambulatory balance and FWW management. Pt is at high fall risk therefore recommending SNF for short term rehab VS home with 24 hr supervision.
--- NOTE | 2019-01-29 10:35 | NUR ---
NURSE NOTES:Message for CECI LoraMarialuisa by this RN regarding need for rehab for dc.
--- NOTE | 2019-01-29 10:43 | NUR ---
NURSE NOTES: Patient found with no nicotine patch on when ordered replacement patch occured on EMR. Place nicotine patch per Dr Grey's orders and verbal recommendation.
[2019-01-29 12:00] VITALS: BP 115/81
--- NOTE | 2019-01-29 12:02 | NUR ---
NURSE NOTES: Noon: patient calmly laying in bed with mother at bedside. No sign of cardiac or respiratory distress.Patient is asleep but easily rousable by name. Bed alarm on and bed in lowest locked position with urinal and call valencia in reach.
--- NOTE | 2019-01-29 12:13 | General Progress Note ---
Assessment/Plan Problem List: (1) Alcohol abuse ICD Codes: F10.10 - Alcohol abuse, uncomplicated SNOMED: 29955785 (2) Pancreatitis ICD Codes: K85.90 - Acute pancreatitis without necrosis or infection, unspecified SNOMED: 55824521 Qualifiers: Qualified Codes: K85.20 - Alcohol induced acute pancreatitis without necrosis or infection (3) Alcoholic hepatitis ICD Codes: K70.10 - Alcoholic hepatitis without ascites SNOMED: 541519769 (4) Thrombocytopenia ICD Codes: D69.6 - Thrombocytopenia, unspecified SNOMED: 030617218 (5) Upper GI bleed ICD Codes: K92.2 - Gastrointestinal hemorrhage, unspecified SNOMED: 90414129 Status: stable Assessment/Plan: This is a 38-year-old male with a history of alcohol dependence presenting with alcoholic pancreatitis, upper GI bleed, alcoholic hepatitis. Acute hepatitis A. #Acute pancreatitis, suspect alcohol induced. resolving- tolerating diet, no abdominal pain -s/p IV normal saline at 200 cc/h -N.P.o. diet advanced, tolerating -Dilaudid for pain management -Appreciate GI recommendations: Dr. Grey -abdominal ultrasound reviewed--> Fatty liver, pancreatitis #Upper GI bleed -Trend CBC -occult blood -Appreciate GI recommendation -Protonix -s/p Octreotide GTT for possible varices -s/p Rocephin 1 g IV every 24 hours s/p EGD: 1. A 3 cm hiatal hernia. 2. Gastritis, status post biopsy. 3. Mild duodenitis. #Alcoholic hepatitis. AST 2X>ALT. - improving #Acute hepatitis A #EtOH dependence #Suspect possible underlying cirrhosis #Etoh withdrawal with seizures > Maddrey discrimant function 0.3. Good prognosis >last drink 01/23/19 >no history of withdrawal, seizures or DT's, now with seizures -> tele -No steroids indicated -Continue to trend LFTs -Appreciate GI recommendations -abdominal US to eval for cirrhosis as above--> Fatty liver, pancreatitis -CIWAA protocol for withdrawal -ativan PRN -banana bag x 3 days -Librium #Nicotine dependence -Nicotine patch -counselled #diarrhea, suspect related to pancreatitis. C. diff ruled out #hypokalemia, hypomagnesemia -replace prn #moderate protein calorie malnutrition -Ensure FENPPX DVTPPX: SCD's for now. Holding Heparin SQ given bleed GI PPX: Protonix Fluids: as above Diet: Regular + Ensure Lines: peripheral PT/OT: SNF placement Code status: Full Dispo: Home vs. SNF after resolution of above issues Reason for Continued Hospitalization: unsteady gait, weakness 40 minutes spent on this encounter. Discussed with RN, patient, mother and gastroenterology . > 50% spent on counseling and care coordination. Time of note may not reflect time patient was seen. Subjective Date patient seen: Jan 29, 2019 ROS Limited/Unobtainable: No Constitutional: Reports: no symptoms, chills, diaphoresis, fever, malaise, other HEENT: Denies: no symptoms, eye pain, blurred vision, tearing, double vision, ear pain, ear discharge, nose pain, nose congestion, throat pain, throat swelling, mouth pain, mouth swelling, other Cardiovascular: Denies: no symptoms, chest pain, edema, irregular heart rate, lightheadedness, palpitations, syncope, other Respiratory: Denies: no symptoms, cough, orthopnea, shortness of breath, SOB with excertion, SOB at rest, sputum, stridor, wheezing, other Gastrointestinal/Abdominal: Denies: no symptoms, abdomen distended, abdominal pain, black stools, tarry stools, blood in stool, constipated, diarrhea, difficulty swallowing, nausea, poor appetite, poor fluid intake, rectal bleeding , vomiting, other Genitourinary: Denies: no symptoms, burning, discharge, frequency, flank pain, hematuria, incontinence, pain, urgency, other Neurologic/Psychiatric: Denies: no symptoms, anxiety, depressed, emotional problems, headache, numbness, paresthesia, pre-existing deficit, seizure, tingling, tremors, weakness, other Endocrine: Denies: no symptoms, excessive sweating, flushing, intolerance to cold, intolerance to heat, increased hunger, increased thirst, increased urine, unexplained weight gain, unexplained weight loss, other Allergies: Coded Allergies: No Known Allergies (Unverified , 10/05/15) Subjective seen and examined. eager to go home, mom at bedside. Wanted to dc home, patient too weak and unsteady gait. Seen by PT, recommended subacute rehab. Patient is calm, no signs of etoh withdrawal or agitation Objective Last 24 Hour Vital Signs Date Time Temp Pulse Resp B/P (MAP) Pulse Ox O2 Delivery O2 Flow Rate FiO2 01/29/19 09:44 Room Air 01/29/19 08:00 97.3 82 20 136/93 (107) 100 01/29/19 08:00 83 01/29/19 04:00 116 01/29/19 04:00 96.8 99 17 134/99 (111) 100 01/29/19 00:00 112 01/29/19 00:00 97.5 96 16 138/99 (112) 99 01/28/19 21:00 Room Air 01/28/19 20:00 108 01/28/19 20:00 98.6 92 16 129/94 (106) 100 01/28/19 16:00 105 01/28/19 16:00 97.7 105 20 144/98 (113) 99 Intake and Output 01/28/19 01/29/19 18:59 06:59 Intake Total 860 ml Output Total 1400 ml 2500 ml Balance -540 ml -2500 ml Intake Oral 860 ml Output Urine Total 1400 ml 2500 ml Laboratory Tests 01/29/19 06:28: White Blood Count 5.1, Red Blood Count 3.84L, Hemoglobin 10.9L, Hematocrit 34.2L , Mean Corpuscular Volume 89, Mean Corpuscular Hemoglobin 28.5, Mean Corpuscular Hemoglobin Concent 32.0, Red Cell Distribution Width 16.5H, Platelet Count 152, Mean Platelet Volume 7.0, Neutrophils (%) (Auto) , Lymphocytes (%) (Auto) , Monocytes (%) (Auto) , Eosinophils (%) (Auto) , Basophils (%) (Auto) , Differential Total Cells Counted 100, Neutrophils % ( Manual) 55, Lymphocytes % (Manual) 24, Monocytes % (Manual) 20H, Eosinophils % ( Manual) 1, Basophils % (Manual) 0, Band Neutrophils 0, Platelet Estimate Adequate, Platelet Morphology Normal, Hypochromasia 1+, Anisocytosis 1+, Sodium Level 139, Potassium Level 3.5, Chloride Level 104, Carbon Dioxide Level 26, Anion Gap 10, Blood Urea Nitrogen 1L, Creatinine 0.5L, Estimat Glomerular Filtration Rate > 60, Glucose Level 136H, Calcium Level 8.2L, Total Bilirubin 0.6, Aspartate Amino Transf (AST/SGOT) 223H, Alanine Aminotransferase (ALT/SGPT ) 114H, Alkaline Phosphatase 170H, Total Protein 6.7, Albumin 2.7L, Globulin 4.0 , Albumin/Globulin Ratio 0.7L Height (Feet): 5 Height (Inches): 8.00 Weight (Pounds): 122 Objective General Appearance: WD/WN, no apparent distress, alert Lines, tubes and drains: peripheral HEENT: normocephalic, atraumatic, anicteric, PERRL Neck: non-tender, normal alignment, supple Respiratory/Chest: chest wall non-tender, lungs clear, normal breath sounds, no respiratory distress, no accessory muscle use Cardiovascular/Chest: normal peripheral pulses, normal rate, regular rhythm, no JVD Abdomen: normal bowel sounds, non tender, soft, no organomegaly, no mass Extremities: normal range of motion, non-tender, normal inspection Skin Exam: normal pigmentation, warm/dry 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 Jan 29, 2019 12:13
--- NOTE | 2019-01-29 12:45 | NUR ---
NURSE NOTES: This RN and nurse discharge wanted to demonstrate patient's needs to CM. Patient walked with assist with CECI Elam in room. Patient and mother stated his lack of balance and weakness was "just a little worse than usual--about a month ago the neuropathy got worse and need help to walk, but never fell". CM to order a walker for patient and home vivisting PT services per her plan. Addendum: 01/29/19 at 1444 by Junior Myers RN 2pm: follow up voicemail message left for CM regarding obtaining in-home PT orders and obtaining a walker (as was the plan stated by Marialuisa per earlier note). Addendum: 01/29/19 at 1605 by Junior Myers RN Spoke with CECI Elam at 345pm who authorized getting walker from [facility]. CM stated she had sent information to insurance to obtain in-home PT. She stated that the insurance company would be contacting the family. Explained to mother and S.O. at bedside regarding the plan per Marialuisa.
[2019-01-29] MEDS ORDERED: chlordiazePOXIDE 25mg Cap ORAL SCH (14:00)
--- NOTE | 2019-01-29 14:17 | NUR ---
Social Work This SW received a consult due to substance abuse. Patient resides with his mother, Lesli ([phone]) and plans to discharge to home today with mother to assist, as needed. Patient overall remains independent, alert/oriented x4. Patient is currently sedate due to medication needed for detox. This Sw spoke with mother and girlfriend at bedside and provided substance abuse treatment options, along with AA meetings. Mother denied any mental health concerns, nor any depression, suicidal ideations. No other needs/concerns present at this time.
--- NOTE | 2019-01-29 14:35 | Discharge Summary ---
Discharge Summary Hospital Course Date of Admission Jan 23, 2019 at 21:26 Date of Discharge 01/29/2019 Admitting Diagnosis UGI bleed/alcohol withdrawal HPI Jack Davidson is a 38 year old male who was admitted on Jan 23, 2019 at 21:26 for Upper Gi Bleed; Alcohol Withdrawl Consultations Gastroenterology, Psychiatry Procedures EGD Hospital Course This is a 38-year-old male with a history of alcohol dependence presenting with alcoholic pancreatitis, upper GI bleed, alcoholic hepatitis. Acute hepatitis A. #Acute pancreatitis, suspect alcohol induced. resolving- tolerating diet, no abdominal pain -s/p IV normal saline at 200 cc/h -N.P.o. diet advanced, tolerating -Dilaudid for pain management -Appreciate GI recommendations: Dr. Grye -abdominal ultrasound reviewed--> Fatty liver, pancreatitis #Upper GI bleed -Trend CBC -occult blood -Appreciate GI recommendation -Protonix -s/p Octreotide GTT for possible varices -s/p Rocephin 1 g IV every 24 hours s/p EGD: 1. A 3 cm hiatal hernia. 2. Gastritis, status post biopsy. 3. Mild duodenitis. #Alcoholic hepatitis. AST 2X>ALT. - improving #Acute hepatitis A #EtOH dependence #Suspect possible underlying cirrhosis #Etoh withdrawal with seizures > Maddrey discrimant function 0.3. Good prognosis >last drink 01/23/19 >no history of withdrawal, seizures or DT's, now with seizures -> tele -No steroids indicated -Continue to trend LFTs -Appreciate GI recommendations -abdominal US to eval for cirrhosis as above--> Fatty liver, pancreatitis -CIWAA protocol for withdrawal -ativan PRN -banana bag x 3 days -Librium #Nicotine dependence #substance use disorder and dependence -Nicotine patch -counselled -SW consult #diarrhea, suspect related to pancreatitis. C. diff ruled out #hypokalemia, hypomagnesemia -replace prn #moderate protein calorie malnutrition -Ensure FENPPX DVTPPX: SCD's for now. Holding Heparin SQ given bleed GI PPX: Protonix Fluids: as above Diet: Regular + Ensure Lines: peripheral PT/OT: SNF placement vs home with 24 hr supervision and a walker Code status: Full Dispo: Home with 24hr supervision and walker follow up: Gastroenterology Dr. Grey 35 minutes spent on this encounter. Discussed with RN, patient, mother and gastroenterology . > 50% spent on counseling and care coordination. Time of note may not reflect time patient was seen. Discharge Medications New Medications: Pantoprazole (Pantoprazole) 20 Mg Tablet.dr 20 MG ORAL DAILY for 30 Days, #30 TAB 0 Refills Thiamine Hcl* (Vitamin B-1*) 100 Mg Tablet 100 MG ORAL DAILY for 30 Days, #30 TAB 0 Refills Chlordiazepoxide (Chlordiazepoxide HCl) 25 Mg Capsule 25 MG ORAL Q3HR for 10 Days, #30 CAP Lorazepam* (Ativan*) 1 Mg Tablet 2 MG ORAL Q6HR PRN for 4 Days, #28 TAB Mirtazapine* (Mirtazapine*) 15 Mg Tablet 15 MG ORAL BEDTIME for 30 Days, #30 TAB Discharge Condition Upon Discharge: stable Discharge Disposition Patient was discharged to home Discharge Diagnoses: (1) Hepatitis A (2) Upper GI bleed (3) Thrombocytopenia (4) Alcoholic hepatitis (5) Hypokalemia (6) Pancreatitis (7) Alcohol abuse Brendan Grey M.D. Jan 29, 2019 14:35
--- NOTE | 2019-01-29 15:17 | General Progress Note ---
Assessment/Plan Problem List: (1) Upper GI bleed ICD Codes: K92.2 - Gastrointestinal hemorrhage, unspecified SNOMED: 88880838 (2) Thrombocytopenia ICD Codes: D69.6 - Thrombocytopenia, unspecified SNOMED: 412995825 (3) Alcoholic hepatitis ICD Codes: K70.10 - Alcoholic hepatitis without ascites SNOMED: 436171662 (4) Pancreatitis ICD Codes: K85.90 - Acute pancreatitis without necrosis or infection, unspecified SNOMED: 09626542 Qualifiers: Qualified Codes: K85.20 - Alcohol induced acute pancreatitis without necrosis or infection (5) Alcohol abuse ICD Codes: F10.10 - Alcohol abuse, uncomplicated SNOMED: 39889991 Status: stable Assessment/Plan: s/p EGD: SUMMARY OF FINDINGS: 1. A 3 cm hiatal hernia. 2. Gastritis, status post biopsy. 3. Mild duodenitis. ppi repeat labs supportive care patient eating with the family Ensure 3 x per day ? acute hep A repeat LFTS Subjective ROS Limited/Unobtainable: No Allergies: Coded Allergies: No Known Allergies (Unverified , 10/05/15) Objective Last 24 Hour Vital Signs Date Time Temp Pulse Resp B/P (MAP) Pulse Ox O2 Delivery O2 Flow Rate FiO2 01/29/19 12:00 97.5 90 18 115/81 (92) 100 01/29/19 09:44 Room Air 01/29/19 08:00 97.3 82 20 136/93 (107) 100 01/29/19 08:00 83 01/29/19 04:00 116 01/29/19 04:00 96.8 99 17 134/99 (111) 100 01/29/19 00:00 112 01/29/19 00:00 97.5 96 16 138/99 (112) 99 01/28/19 21:00 Room Air 01/28/19 20:00 108 01/28/19 20:00 98.6 92 16 129/94 (106) 100 01/28/19 16:00 105 01/28/19 16:00 97.7 105 20 144/98 (113) 99 Intake and Output 01/28/19 01/29/19 19:00 07:00 Intake Total 860 ml Output Total 1400 ml 2500 ml Balance -540 ml -2500 ml Intake Oral 860 ml Output Urine Total 1400 ml 2500 ml Laboratory Tests 01/29/19 06:28: White Blood Count 5.1, Red Blood Count 3.84L, Hemoglobin 10.9L, Hematocrit 34.2L , Mean Corpuscular Volume 89, Mean Corpuscular Hemoglobin 28.5, Mean Corpuscular Hemoglobin Concent 32.0, Red Cell Distribution Width 16.5H, Platelet Count 152, Mean Platelet Volume 7.0, Neutrophils (%) (Auto) , Lymphocytes (%) (Auto) , Monocytes (%) (Auto) , Eosinophils (%) (Auto) , Basophils (%) (Auto) , Differential Total Cells Counted 100, Neutrophils % ( Manual) 55, Lymphocytes % (Manual) 24, Monocytes % (Manual) 20H, Eosinophils % ( Manual) 1, Basophils % (Manual) 0, Band Neutrophils 0, Platelet Estimate Adequate, Platelet Morphology Normal, Hypochromasia 1+, Anisocytosis 1+, Sodium Level 139, Potassium Level 3.5, Chloride Level 104, Carbon Dioxide Level 26, Anion Gap 10, Blood Urea Nitrogen 1L, Creatinine 0.5L, Estimat Glomerular Filtration Rate > 60, Glucose Level 136H, Calcium Level 8.2L, Total Bilirubin 0.6, Aspartate Amino Transf (AST/SGOT) 223H, Alanine Aminotransferase (ALT/SGPT ) 114H, Alkaline Phosphatase 170H, Total Protein 6.7, Albumin 2.7L, Globulin 4.0 , Albumin/Globulin Ratio 0.7L Height (Feet): 5 Height (Inches): 8.00 Weight (Pounds): 122 General Appearance: no apparent distress EENT: normal ENT inspection Neck: normal alignment Cardiovascular: normal rate Respiratory/Chest: decreased breath sounds Abdomen: normal bowel sounds, non tender, soft Extremities: non-tender Steven Grey MD Jan 29, 2019 15:17
[2019-01-29 16:06] VITALS: BP 106/62
--- NOTE | 2019-01-29 16:16 | NUR ---
*-* INSURANCE *-* ALL AVAILABLE CLINICALS HAVE BEEN FAXED TO: LYD[facility] MACK CM: Andrea #[phone] ext [phone]
--- NOTE | 2019-01-29 16:48 | NUR ---
NURSE NOTES: Patient discharged to home with PT services . Reviewed dc instructions including follow up dr parsons and meds. Called pharmacy to verify correct location with family. Assembled and demonstrated walker with patient standing to measure appropriate size. Removed IVs . Removed tele. Patient stated "I want to go home." fam at bedside. Veriified all belongings with patient at time of dc. Patient and family have no further questions at this time. Patient aox3 with calm, affect. Accompanied family to car with patient in wheelchair--family confirmed with this nurse that there is easy path with no steps when patient arrives to home.
[2019-01-30] MEDS ORDERED: Thiamine 100mg tab ORAL SCH (09:00)
== END 2019-01-29 17:00 | disposition home or self-care (01) | DRG 439 ==
LOC: EMR 19:28 → EDBEDREQ 21:14 → OBSVTOIN 21:26 → 4E 21:26 → 2E 01-26 03:34
PROC: 0DD78ZX Extraction of Stomach, Pylorus, Via Natural or Artificial Opening Endoscopic, Diagnostic (ICD-10-PCS; principal; 2019-01-25 12:11)
DX: K85.20 Alcohol induced acute pancreatitis without necrosis or infection (principal); F10.239 Alcohol dependence with withdrawal, unspecified; G40.89 Other seizures; B15.9 Hepatitis A without hepatic coma; E44.0 Moderate protein-calorie malnutrition; Z68.1 Body mass index [BMI] 19.9 or less, adult; K92.1 Melena; K92.0 Hematemesis; K70.10 Alcoholic hepatitis without ascites; K70.30 Alcoholic cirrhosis of liver without ascites; K44.9 Diaphragmatic hernia without obstruction or gangrene; Y90.8 Blood alcohol level of 240 mg/100 ml or more; F17.200 Nicotine dependence, unspecified, uncomplicated; E87.6 Hypokalemia; E83.42 Hypomagnesemia; K29.70 Gastritis, unspecified, without bleeding; D69.6 Thrombocytopenia, unspecified; K29.80 Duodenitis without bleeding; K76.0 Fatty (change of) liver, not elsewhere classified
CPT/HCPCS: 36415; 71045; 74018; 76700; 80053; 80307; 81003; 82150; 82248; 82270; 82550; 82962; 83615; 83690; 83735; 84100; 84484; 85007; 85025; 85610; 85730; 86705; 86709; 86803; 86850; 86900; 86901; 87324; 87340; 93005; 94003; 94150; 96360; 96361; 96365; 96366; 96374; 96375; 99285; C8957; G0480; J7030; J8499

== ENCOUNTER 2019-09-17 16:23 | Emergency (ER) | payer OTHER ==
[~2019-09-17] VITALS: Ht 172.7 cm; Wt 63.5 kg
[~2019-09-17 16:23] MED LIST changes: +ATIVAN1 MG ORAL; +LIBRIUM25 MG ORAL; +MIRTAZAPINE15 M3 ORAL; +PANTOPRAZOLE SO20 MG ORAL; +VITAMIN B-1100 MG ORAL
[2019-09-17] MEDS ORDERED: Omnipaque-300 100ml vial INJ PRN (16:30)
[2019-09-17 16:31] VITALS: BP 100/62
--- NOTE | 2019-09-17 16:31 | NUR ---
ED Nurse Note: PT walked into ED for C/O abd pain x 1 week. pt aso reports having N/V/D.
[2019-09-17] MEDS ORDERED: Ketorolac 30mg Inj IV ONE (16:45)
--- NOTE | 2019-09-17 16:45 | NUR ---
ED Nurse Note: pt unable to provide urine at this time. ERPA aware.
--- NOTE | 2019-09-17 17:00 | NUR ---
ED Nurse Note: blood sample collected and sent to lab,.
--- NOTE | 2019-09-17 17:35 | Emergency Room Report ---
History of Present Illness General Chief Complaint: Abdominal Pain Source: Patient (Jin Schmitz) Present Illness HPI 38-year-old male with history of alcohol abuse and pancreatitis here complaining of epigastric abdominal pain that been ongoing for several months and it is been getting worse today. Patient reports that started getting worse after he had a lot of alcohol earlier today. Rates the pain 7 out of 10 at this time. Reports that earlier it was worse. Complains of nausea vomiting however denies any bloody emesis. Complains of loose stools however denies any blood in stool. Denies fever and chills. Patient was last seen at [facility] January 2019 and was admitted due to pancreatitis. Patient also had upper GI bleed in the past. Patient has not been following up with primary doctor nor has he been seen by retail consultant. Denies any cough and congestion, shortness of breath, headache and dizziness. Patient is afebrile. Has not taken medication for symptom relief. Also reports that he smokes marijuana (Jin Schmitz) Allergies: Coded Allergies: No Known Allergies (Unverified , 10/05/15) COVID-19 Screening Contact w/high risk pt: No Recent Travel to affected area: No Experienced COVID-19 symptoms?: No COVID-19 Testing performed FASHION JOURNALIST: No (Jin Schmitz) Patient History Past Medical History: see triage record Past Surgical History: none Pertinent Family History: none Social History: Reports: alcohol use, drug use - marijuana Immunizations: UTD Reviewed Nursing Documentation: PMH: Agreed; PSxH: Agreed (Jin Schmitz) Nursing Documentation-PMH Hx Cardiac Problems: No Hx Cancer: No Hx Gastrointestinal Problems: Yes Hx Neurological Problems: Yes - some nerve damage right arm, says some numbness and weakness Hx Dizziness: Yes Hx Numbness: Yes Hx Weakness: Yes - generalized, shae lower extremities (Jin Schmitz) Review of Systems All Other Systems: negative except mentioned in HPI (Jin Schmitz) Physical Exam Vital Signs Date Time Temp Pulse Resp B/P (MAP) Pulse Ox O2 Delivery O2 Flow Rate FiO2 09/17/19 16:29 98.2 99 19 95/60 (72) 96 Room Air Sp02 EP Interpretation: reviewed, normal General Appearance: no apparent distress, alert, GCS 15, non-toxic, cachetic Head: normocephalic, atraumatic Eyes: bilateral eye normal inspection, bilateral eye PERRL ENT: hearing grossly normal, normal pharynx, no angioedema, normal voice Neck: full range of motion, supple/symm/no masses Respiratory: chest non-tender, lungs clear, normal breath sounds, speaking full sentences Cardiovascular #1: regular rate, rhythm, no edema Gastrointestinal: normal bowel sounds, non tender, soft, no mass, no organomegaly, no peritonitis, no bruit, non-distended, no guarding, no hernia, no pulsatile mass, no rebound Rectal: deferred Genitourinary: no CVA tenderness Musculoskeletal: back normal, normal range of motion, no calf tenderness Neurologic: alert, motor strength/tone normal, oriented x3, sensory intact, responsive, speech normal Psychiatric: judgement/insight normal, memory normal, mood/affect normal, no suicidal/homicidal ideation Skin: no rash Lymphatic: no adenopathy (Jin Schmitz) Medical Decision Making PA Attestation All diagnoses and treatment plans were reviewed and discussed with my supervising physician Dr. Maldonado (Jin Schmitz) Diagnostic Impression: Primary Impression: Acute pancreatitis Qualified Codes: K85.20 - Alcohol induced acute pancreatitis without necrosis or infection Additional Impressions: Hyponatremia Alcohol abuse ER Course 38-year-old male with history of alcohol abuse and pancreatitis here complaining of epigastric abdominal pain that been ongoing for several months and it is been getting worse today. Patient reports that started getting worse after he had a lot of alcohol earlier today. Rates the pain 7 out of 10 at this time. Reports that earlier it was worse. Complains of nausea vomiting however denies any bloody emesis. Complains of loose stools however denies any blood in stool. Denies fever and chills. Patient was last seen at [facility] January 2019 and was admitted due to pancreatitis. Patient also had upper GI bleed in the past. Patient has not been following up with primary doctor nor has he been seen by retail consultant. Denies any cough and congestion, shortness of breath, headache and dizziness. Patient is afebrile. Has not taken medication for symptom relief. Also reports that he smokes marijuana Ddx considered but are not limited to: appendicitis, cholecystis, gastritis, gastroenteritis, UTI, pyelonephritis, SBO, diverticulitis, influenza with GI manifestation, LA, pancreatitis Vital signs: are WNL, pt. is afebrile H&PE are most consistent with: Hepatitis, hyponatremia, alcohol abuse ORDERS: abdominal CT, abdominal pain set, EKG, ED INTERVENTIONS: NS bolus, Toradol, Zofran, Pepcid Patient was to be admitted however signed AGAINST MEDICAL ADVICE. Patient was seen and had full judgment was fully aware of the risk of leaving AGAINST MEDICAL ADVICE. (Jin Schmitz) ER Course Please see above note. Patient examined by me. Labs reviewed by me. I concur with patients being admitted to the hospital. Discussed treatment plan patient was asking if he could go home and come back. I told him he risks by leaving at this time. He said he had to "arrange some things". He still insisted on leaving and signed out AGAINST MEDICAL ADVICE. He was told he was welcome to return at any time. (Ayush Maldonado MD) CT/MRI/US Diagnostic Results CT/MRI/US Diagnostic Results : Imaging Test Ordered: ct abd pelvis with contrast Impression IMPRESSION: 1. No cross-sectional imaging studies since 2017 are available for comparison at the time of dictation. 2. Findings suggesting acute edematous interstitial pancreatitis without vascular complication. Substantial acute peripancreatic fluid collection without loculation present. 3. Pancreatitis may be due to pancreatic uncinate process peripherally enhancing 2 cm centrally cystic mass with surrounding pancreatic hypoattenuation ; this could represent pancreatic neoplasm, particularly given findings on comparison abdomen ultrasound. 4. Recommend MRI pancreas without and with IV contrast to further characterize these findings. 5. Urinary bladder wall thickening, correlate to exclude infectious or inflammatory cystitis. 6. Gallbladder sludge without findings to suggest acute cholecystitis. 7. Hepatic steatosis, correlate to exclude steatohepatitis. (Jin Schmitz) Last Vital Signs Date Time Temp Pulse Resp B/P (MAP) Pulse Ox O2 Delivery O2 Flow Rate FiO2 09/17/19 16:31 98.2 92 18 100/62 97 Room Air (Jin Schmitz) Status: improved (Ayush Maldonado MD) Disposition: AGAINST MEDICAL ADVICE Condition: Serious Referrals: Courtney ROGEL,REFERRING (PCP) Jin Schmitz Sep 17, 2019 17:35 Ayush Maldonado MD Sep 17, 2019 18:16
[2019-09-17 17:51] LABS: ANION GAP 13 mmol/L (5-15); BLOOD UREA NITROGEN 7 mg/dL (7-18); CALCIUM 9.8 MG/DL (8.5-10.1); CARBON DIOXIDE 29 MMOL/L (21-32); CHLORIDE 87 MMOL/L (98-107); CREATININE 0.9 MG/DL (0.55-1.30); POTASSIUM 3.8 MMOL/L (3.5-5.1); SODIUM 129 MMOL/L (136-145)
[2019-09-17 17:54] LABS: BASOPHILS % (AUTO) 1.1 % (0.0-2.0); EOSINOPHILS % (AUTO) 0.2 % (0.0-3.0); HEMATOCRIT 44.3 % (42.0-52.0); HEMOGLOBIN 14.1 G/DL (14.2-18.0); LYMPHOCYTES % (AUTO) 22.1 % (20.0-45.0); MEAN CORPUSCULAR VOLUME 79 FL (80-99); MONOCYTES % (AUTO) 8.3 % (1.0-10.0); NEUTROPHILS % (AUTO) 68.4 % (45.0-75.0); PLATELET COUNT 154 K/UL (150-450); RED BLOOD COUNT 5.58 M/UL (4.70-6.10); RED CELL DISTRIBUTION WIDTH 18.6 % (11.6-14.8)
[2019-09-17 18:02] LABS: ALANINE AMINOTRANSFERASE 167 U/L (12-78); ALBUMIN/GLOBULIN RATIO 0.8 (1.0-2.7); ALKALINE PHOSPHATASE 153 U/L (46-116); ASPARTATE AMINO TRANSFERASE 288 U/L (15-37); BILIRUBIN,TOTAL 0.7 MG/DL (0.2-1.0); CREATINE KINASE 173 U/L (26-308)
--- NOTE | 2019-09-17 18:09 | NUR ---
ED Nurse Note:pt taken to Ct via keven in stable condition.
--- NOTE | 2019-09-17 18:14 | NUR ---
ED Nurse Note: pt returned back from CT
--- NOTE | 2019-09-17 18:19 | NUR ---
ED Nurse Note: urine sample collected and sent to lab.
--- NOTE | 2019-09-17 18:32 | NUR ---
ED Nurse Note: pt was informed of possible admission and decided to [facility]. AMA form signed. IV line adn ID band taken off. pt left and took all his belongings.
--- NOTE | 2019-09-17 18:35 | Diagnostic Imaging Report ---
EXAM: CT Abdomen and Pelvis With Intravenous Contrast CLINICAL HISTORY: PAIN TECHNIQUE: Axial computed tomography images of the abdomen and pelvis with intravenous contrast. CTDI is 3 mGy and DLP is 145 mGy-cm. One or more of the following dose reduction techniques were used: automated exposure control, adjustment of the mA and/or kV according to patient size, use of iterative reconstruction technique. Coronal and sagittal reformatted images were created and reviewed. COMPARISON: 06/24/16 CT; 01/24/19 abdomen ultrasound FINDINGS: Lung bases: Unremarkable. No mass. No consolidation. ABDOMEN: Liver: Hepatic steatosis, correlate to exclude steatohepatitis. Gallbladder and bile ducts: Gallbladder sludge without findings to suggest acute cholecystitis. No ductal dilation. Pancreas: Findings suggesting acute edematous interstitial pancreatitis without vascular complication. Substantial acute peripancreatic fluid collection without loculation present. Pancreatitis may be due to pancreatic uncinate process peripherally enhancing 2 cm centrally cystic mass with surrounding pancreatic hypoattenuation; this could represent pancreatic neoplasm, particularly given findings on comparison abdomen ultrasound. Recommend MRI pancreas without and with IV contrast to further characterize these findings. No ductal dilation. Spleen: Unremarkable. No splenomegaly. Adrenals: Unremarkable. No mass. Kidneys and ureters: Unremarkable. No solid mass. No hydronephrosis. Stomach and bowel: Short segment enteroenteric intussusception without bleed point or obstruction, likely incidental. No mucosal thickening. PELVIS: Appendix: No findings to suggest acute appendicitis. Bladder: Urinary bladder wall thickening, correlate to exclude infectious or inflammatory cystitis. Reproductive: Unremarkable as visualized. ABDOMEN and PELVIS: Intraperitoneal space: Unremarkable. No free air. No significant fluid collection. Bones/joints: No acute fracture. No dislocation. Soft tissues: Unremarkable. Vasculature: Unremarkable. No abdominal aortic aneurysm. Lymph nodes: Unremarkable. No enlarged lymph nodes. Other findings: No more recent cross-sectional imaging studies are available for comparison at the time of dictation. IMPRESSION: 1. No cross-sectional imaging studies since 2017 are available for comparison at the time of dictation. 2. Findings suggesting acute edematous interstitial pancreatitis without vascular complication. Substantial acute peripancreatic fluid collection without loculation present. 3. Pancreatitis may be due to pancreatic uncinate process peripherally enhancing 2 cm centrally cystic mass with surrounding pancreatic hypoattenuation; this could represent pancreatic neoplasm, particularly given findings on comparison abdomen ultrasound. 4. Recommend MRI pancreas without and with IV contrast to further characterize these findings. 5. Urinary bladder wall thickening, correlate to exclude infectious or inflammatory cystitis. 6. Gallbladder sludge without findings to suggest acute cholecystitis. 7. Hepatic steatosis, correlate to exclude steatohepatitis.
[2019-09-17 18:41] LABS: APPEARANCE,URINE CLEAR; BILIRUBIN, URINE NEGATIVE (NEGATIVE); GLUCOSE, URINE (UA) NEGATIVE (NEGATIVE); KETONES,URINE 2+ (NEGATIVE); LEUKOCYTE ESTERASE ,URINE NEGATIVE (NEGATIVE); NITRITE,URINE NEGATIVE (NEGATIVE); PH,URINE 6 (4.5-8.0); PROTEIN,URINE 1+ (NEGATIVE); UROBILINOGEN,URINE NORMAL MG/DL (0.0-1.0)
[2019-09-17 18:45] LABS: COLOR,URINE PALE YELLOW
== END 2019-09-17 18:32 | disposition other institution (70) ==
LOC: EMR 17:04 → CANBEDREQ 18:27 → EMR 18:32
DX: K85.20 Alcohol induced acute pancreatitis without necrosis or infection (principal); E87.1 Hypo-osmolality and hyponatremia; F10.10 Alcohol abuse, uncomplicated; R11.2 Nausea with vomiting, unspecified; K76.0 Fatty (change of) liver, not elsewhere classified
CPT/HCPCS: 36415; 74177; 80053; 80307; 81003; 82550; 83690; 84484; 85025; 85610; 85730; 86850; 86900; 86901; 93005; 96361; 96374; 96375; 99284; G0480; J1885; J2405; Q9967

== ENCOUNTER 2019-09-18 17:23 | Inpatient (IN) | payer MEDICAID, OTHER ==
[~2019-09-18] VITALS: Ht 172.7 cm; Wt 63.5 kg
[2019-09-18 17:45] VITALS: BP 117/77
[2019-09-18] MEDS ORDERED: Metoclopramide 10mg/2ml Inj IVP ONE (17:45)
[2019-09-18] MEDS ORDERED: DiphenhydrAMINE 50mg/ml Inj IVP ONE (17:45)
[2019-09-18] MEDS ORDERED: Morphine Sulfate 2mg/ml Inj(IV/IM USE ONLY) IVP ONE (17:45)
--- NOTE | 2019-09-18 17:45 | NUR ---
ED Nurse Note: Pt ambulated to ED from home d/t abdominal pain with nausea and vomiting for 8-9 days. Pt is AOx4, calm and cooperative. Per pt, he was already seen and treated yesterday for pacreatitis. Placed on bed and gown; hooked to back end web developer, pt's on RA, VSS, breathing on spontaneous rhythm, afebrile on triage. Will continue to monitor.
[2019-09-18 18:28] LABS: ANION GAP 12 mmol/L (5-15); BLOOD UREA NITROGEN 5 mg/dL (7-18); CALCIUM 8.8 MG/DL (8.5-10.1); CARBON DIOXIDE 26 MMOL/L (21-32); CHLORIDE 90 MMOL/L (98-107); CREATININE 0.8 MG/DL (0.55-1.30); POTASSIUM 3.2 MMOL/L (3.5-5.1); SODIUM 128 MMOL/L (136-145)
[2019-09-18 18:31] LABS: EOSINOPHILS % (AUTO) 0.3 % (0.0-3.0); HEMATOCRIT 38.2 % (42.0-52.0); HEMOGLOBIN 12.6 G/DL (14.2-18.0); LYMPHOCYTES % (AUTO) 23.7 % (20.0-45.0); MEAN CORPUSCULAR VOLUME 78 FL (80-99); MONOCYTES % (AUTO) 12.5 % (1.0-10.0); NEUTROPHILS % (AUTO) 62.5 % (45.0-75.0); PLATELET COUNT 116 K/UL (150-450); RED BLOOD COUNT 4.86 M/UL (4.70-6.10); RED CELL DISTRIBUTION WIDTH 18.3 % (11.6-14.8); WHITE BLOOD COUNT 8.7 K/UL (4.8-10.8)
[2019-09-18 18:33] LABS: ALANINE AMINOTRANSFERASE 122 U/L (12-78); ALBUMIN 3.3 G/DL (3.4-5.0); ALBUMIN/GLOBULIN RATIO 0.7 (1.0-2.7); ALKALINE PHOSPHATASE 127 U/L (46-116); ASPARTATE AMINO TRANSFERASE 163 U/L (15-37); BILIRUBIN,TOTAL 0.7 MG/DL (0.2-1.0)
--- NOTE | 2019-09-18 18:36 | Emergency Room Report ---
History of Present Illness General Chief Complaint: Abdominal Pain Source: Patient Present Illness HPI Patient was evaluated yesterday for abdominal pain and vomiting. He was found to have pancreatitis. Blood alcohol was positive and there were dated liver function tests. Patient was treated with IV hydration, Pepcid, Zofran and analgesic. He was told he needed to come into the hospital. He ended up signing out AGAINST MEDICAL ADVICE saying he would be back. Patient continues to vomit. He states it is just foamy material. There is no blood or coffee grounds. He denies any melena but has not moved his bowels recently. He still has pain in his abdomen. The pain is somewhat better today than yesterday. He is claims it is 5/10 at this time. He has not taken any medication. It is burning and aching epigastric. No fevers, chills, sore throat, chest pain, palpitations, dysuria, shortness of breath, joint pain, rashes, visual changes, dizziness, headache. The patient also complains about anxiety. Allergies: Coded Allergies: No Known Allergies (Unverified , 10/05/15) COVID-19 Screening Contact w/high risk pt: No Recent Travel to affected area: No Experienced COVID-19 symptoms?: No COVID-19 Testing performed HOT MILL SHEARER: No Patient History Past Medical History: see triage record, old chart reviewed Social History: Reports: smoking, alcohol use, drug use - THC Social History Narrative With mother Reviewed Nursing Documentation: PMH: Agreed; PSxH: Agreed Nursing Documentation-PM Past Medical History: No History, Except For Hx Cardiac Problems: No Hx Cancer: No Hx Gastrointestinal Problems: Yes Hx Neurological Problems: Yes - some nerve damage right arm, says some numbness and weakness Hx Dizziness: Yes Hx Numbness: Yes Hx Weakness: Yes - generalized, shae lower extremities Review of Systems All Other Systems: negative except mentioned in HPI Physical Exam Vital Signs Date Time Temp Pulse Resp B/P (MAP) Pulse Ox O2 Delivery O2 Flow Rate FiO2 09/18/19 17:33 98.6 90 19 117/77 (90) 97 Room Air Sp02 EP Interpretation: reviewed, normal General Appearance: well appearing, no apparent distress, GCS 15 Head: normocephalic Eyes: bilateral eye normal inspection, bilateral eye PERRL, bilateral eye EOMI ENT: moist mucus membranes Neck: supple Respiratory: lungs clear, normal breath sounds Cardiovascular #1: regular rate, rhythm Cardiovascular #2: 2+ radial (R) Gastrointestinal: normal inspection, normal bowel sounds, no mass, non- distended, no guarding, no rebound, tenderness - Epigastric Genitourinary: no CVA tenderness Musculoskeletal: back normal, normal range of motion, gait/station normal Neurologic: alert, oriented x3, grossly normal Psychiatric: mood/affect normal - Slightly anxious but calm Skin: no rash, warm/dry Medical Decision Making Diagnostic Impression: Primary Impression: Acute pancreatitis Qualified Codes: K85.20 - Alcohol induced acute pancreatitis without necrosis or infection Additional Impressions: Hyponatremia Alcohol abuse ER Course Patient found to have pancreatitis, elevated liver function tests and hyponatremia yesterday evaluation returns. Repeat labs need to be performed. We need to assess whether the hyponatremia is worsened. His exam and clinically he is somewhat better at this time. Depending on labs he may need to be admitted to the hospital. In addition to that he will be treated with IV hydration, placed on the vehicle monitor technician and given a dose of Reglan, Benadryl and morphine. In addition he will be treated with Pepcid. Based on physical exam ultrasound and CT not indicated. White count normal. H&H slightly low. Platelet count slightly low. Sodium low. Potassium minimally decreased. Lipase elevated. Blood alcohol positive. Also for THC. CT scan reviewed from yesterday: 1. No cross-sectional imaging studies since 2017 are available for comparison at the time of dictation. 2. Findings suggesting acute edematous interstitial pancreatitis without vascular complication. Substantial acute peripancreatic fluid collection without loculation present. 3. Pancreatitis may be due to pancreatic uncinate process peripherally enhancing 2 cm centrally cystic mass with surrounding pancreatic hypoattenuation ; this could represent pancreatic neoplasm, particularly given findings on comparison abdomen ultrasound. 4. Recommend MRI pancreas without and with IV contrast to further characterize these findings. 5. Urinary bladder wall thickening, correlate to exclude infectious or inflammatory cystitis. 6. Gallbladder sludge without findings to suggest acute cholecystitis. 7. Hepatic steatosis, correlate to exclude steatohepatitis. Patient improved with treatment however still nauseated and with stomach discomfort. Because of the hyponatremia and elevated lipase the patient is admitted to the hospital. Laboratory Tests Test 09/18/19 18:00 09/18/19 18:45 09/18/19 19:10 White Blood Count 8.7 K/UL (4.8-10.8) Red Blood Count 4.86 M/UL (4.70-6.10) Hemoglobin 12.6 G/DL (14.2-18.0) L Hematocrit 38.2 % (42.0-52.0) L Mean Corpuscular Volume 78 FL (80-99) L Mean Corpuscular Hemoglobin 25.9 PG (27.0-31.0) L Mean Corpuscular Hemoglobin Concent 33.0 G/DL (32.0-36.0) Red Cell Distribution Width 18.3 % (11.6-14.8) H Platelet Count 116 K/UL (150-450) L Mean Platelet Volume 8.8 FL (6.5-10.1) Neutrophils (%) (Auto) 62.5 % (45.0-75.0) Lymphocytes (%) (Auto) 23.7 % (20.0-45.0) Monocytes (%) (Auto) 12.5 % (1.0-10.0) H Eosinophils (%) (Auto) 0.3 % (0.0-3.0) Basophils (%) (Auto) 1.0 % (0.0-2.0) Sodium Level 128 MMOL/L (136-145) L Potassium Level 3.2 MMOL/L (3.5-5.1) L Chloride Level 90 MMOL/L (98-107) L Carbon Dioxide Level 26 MMOL/L (21-32) Anion Gap 12 mmol/L (5-15) Blood Urea Nitrogen 5 mg/dL (7-18) L Creatinine 0.8 MG/DL (0.55-1.30) Estimated Glomerular Filtration Rate > 60 mL/min (>60) Glucose Level 97 MG/DL (74-106) Calcium Level 8.8 MG/DL (8.5-10.1) Total Bilirubin 0.7 MG/DL (0.2-1.0) Aspartate Amino Transferase (AST) 163 U/L (15-37) H Alanine Aminotransferase (ALT) 122 U/L (12-78) H Alkaline Phosphatase 127 U/L (46-116) H Total Protein 7.9 G/DL (6.4-8.2) Albumin 3.3 G/DL (3.4-5.0) L Globulin 4.6 g/dL Albumin/Globulin Ratio 0.7 (1.0-2.7) L Lipase 1985 U/L (73-393) H Serum Alcohol 106 mg/dL Urine Color Pale yellow Urine Appearance Clear Urine pH 6.5 (4.5-8.0) Urine Specific Crystal 1.005 (1.005-1.035) Urine Protein Negative (NEGATIVE) Urine Glucose (UA) Negative (NEGATIVE) Urine Ketones Negative (NEGATIVE) Urine Blood Negative (NEGATIVE) Urine Nitrite Negative (NEGATIVE) Urine Bilirubin Negative (NEGATIVE) Urine Urobilinogen Normal MG/DL (0.0-1.0) Urine Leukocyte Esterase Negative (NEGATIVE) Urine Opiates Screen Negative (NEGATIVE) Urine Barbiturates Screen Negative (NEGATIVE) Phencyclidine (PCP) Screen Negative (NEGATIVE) Urine Amphetamines Screen Negative (NEGATIVE) Urine Benzodiazepines Screen Negative (NEGATIVE) Urine Cocaine Screen Negative (NEGATIVE) Urine Marijuana (THC) Screen Positive (NEGATIVE) H Prothrombin Time 11.9 SEC (9.30-11.50) H Prothrombin Time INR 1.1 (0.9-1.1) Activated Partial Thromboplast Time 26 SEC (23-33) Rhythm Strip Diag. Results EP Interpretation: yes Rhythm: NSR, no PVC's, no ectopy Last Vital Signs Date Time Temp Pulse Resp B/P (MAP) Pulse Ox O2 Delivery O2 Flow Rate FiO2 09/19/19 01:00 Room Air 09/18/19 21:18 98.6 82 16 120/75 100 Status: improved Disposition: ADMITTED INPATIENT Condition: Serious Referrals: NON PHYSICIAN (PCP) Ayush Maldonado MD Sep 18, 2019 18:36
[2019-09-18 18:54] LABS: APPEARANCE,URINE CLEAR; BILIRUBIN, URINE NEGATIVE (NEGATIVE); COLOR,URINE PALE YELLOW; GLUCOSE, URINE (UA) NEGATIVE (NEGATIVE); KETONES,URINE NEGATIVE (NEGATIVE); LEUKOCYTE ESTERASE ,URINE NEGATIVE (NEGATIVE); NITRITE,URINE NEGATIVE (NEGATIVE); PH,URINE 6.5 (4.5-8.0); PROTEIN,URINE NEGATIVE (NEGATIVE); UROBILINOGEN,URINE NORMAL MG/DL (0.0-1.0)
--- NOTE | 2019-09-18 18:57 | NUR ---
ED Nurse Note: blue top redrawn, sent to labs.
--- NOTE | 2019-09-18 19:15 | NUR ---
ED Nurse Note: Hand-off given to Ramses Mojica RN for continuity of care.
--- NOTE | 2019-09-18 19:20 | NUR ---
ED Nurse Note: received patient from austin flores rn. patient resting in bed with no signs of acute distress. AO4. vss. discussed plan of care; pt aware of pending admission; states willingness and cooperation with plan.
[2019-09-18 19:21] VITALS: BP 109/68
[2019-09-18 19:25] LABS: INR 1.1 (0.9-1.1)
[2019-09-18 21:00] VITALS: BP 120/75
--- NOTE | 2019-09-18 21:16 | NUR ---
TRANSFER TO FLOOR: Patient transferred to [place] [id number] as ordered, per candelario salazar. Report given to tameka buckner. patient in stable condition. Transported to unit with [facility] via wheelchair. Belongings and admission packet sent with patient.
--- NOTE | 2019-09-18 21:20 | NUR ---
NURSE NOTES: Received report from TIERRA Desouza. Pt arrived on unit @2119 via wheelchair from ED. Pt is A/Ox4.No apparent distress. Reports 09/30 pain and nausea will contact doctor for orders. Oriented to room/unit. belongings checked at bedside. Iv intact patent. Call light within reach, side rails up x3. bed low and locked position. will continue to monitor
[2019-09-18] MEDS ORDERED: Zolpidem 5mg tab ORAL PRN (22:15)
[2019-09-18] MEDS ORDERED: Morphine Sulfate 2mg/ml Inj(IV/IM USE ONLY) IVP PRN (22:15)
--- NOTE | 2019-09-18 23:15 | Progress Note ---
DATE: 09/18/2019 SUBJECTIVE: This is a 38-year-old male who came to the emergency room having recurrent abdominal pain, nausea, vomiting a few days prior to admission. The patient apparently has been having nausea and vomiting for the last few days. No fever. No chills, but lot of abdominal pain, not tolerating food. PAST MEDICAL HISTORY: Significant for history of recurrent abdominal pain. Positive alcohol. MEDICATIONS: None. SOCIAL HISTORY: Lives at home. PHYSICAL EXAMINATION: GENERAL: This is a young male, currently awake, complaining of abdominal pain. VITAL SIGNS: Blood pressure is 120/70, pulse 74 to 100, respirations 18. No fever. HEENT: NAD. CHEST: Bilaterally clear. CARDIOVASCULAR: Regular rhythm. No gallop. No murmur. ABDOMEN: Soft. Diffuse tenderness. Good bowel sounds. EXTREMITIES: CCE. NEUROLOGICAL: No focal deficit. LABORATORY DATA: Lipase numbers are very high. LFTs are also mildly elevated. ASSESSMENT: Acute pancreatitis. PLAN: We will admit on medical floor, keeping NPO. IV fluid, pain medication, Zofran. Consider GI consult. Blayne Rizzo M.D. DR: ALPHONSO JOB#: [id number] CC:
[2019-09-19 04:00] VITALS: BP 117/79
[2019-09-19 06:49] LABS: HEMATOCRIT 37.3 % (42.0-52.0); HEMOGLOBIN 11.3 G/DL (14.2-18.0); MEAN CORPUSCULAR VOLUME 84 FL (80-99); PLATELET COUNT 95 K/UL (150-450); RED BLOOD COUNT 4.46 M/UL (4.70-6.10); RED CELL DISTRIBUTION WIDTH 17.8 % (11.6-14.8); WHITE BLOOD COUNT 6.2 K/UL (4.8-10.8)
[2019-09-19 07:05] LABS: ALANINE AMINOTRANSFERASE 93 U/L (12-78); ALBUMIN 2.7 G/DL (3.4-5.0); ALBUMIN/GLOBULIN RATIO 0.7 (1.0-2.7); ALKALINE PHOSPHATASE 102 U/L (46-116); ANION GAP 9 mmol/L (5-15); ASPARTATE AMINO TRANSFERASE 113 U/L (15-37); BILIRUBIN,TOTAL 0.8 MG/DL (0.2-1.0); BLOOD UREA NITROGEN 5 mg/dL (7-18); CALCIUM 7.7 MG/DL (8.5-10.1); CARBON DIOXIDE 27 MMOL/L (21-32); CHLORIDE 98 MMOL/L (98-107); CREATININE 0.9 MG/DL (0.55-1.30); POTASSIUM 3.2 MMOL/L (3.5-5.1); SODIUM 134 MMOL/L (136-145)
--- NOTE | 2019-09-19 07:25 | NUR ---
HAND-OFF: Report given to TIERRA Negron. Pt stable.
--- NOTE | 2019-09-19 07:50 | NUR ---
NURSE NOTES: Patient alert,respirations unlabored.IV fluids infusing as ordered.Patient remains NPO as ordered.NO complaint of pain at this time.Call light within reach.
--- NOTE | 2019-09-19 08:43 | General Progress Note ---
Assessment/Plan Problem List: (1) Elevated LFTs ICD Codes: R79.89 - Other specified abnormal findings of blood chemistry SNOMED: 590964726, 218354313 (2) Cannabis abuse ICD Codes: F12.10 - Cannabis abuse, uncomplicated SNOMED: 84874939 (3) Pancreatitis ICD Codes: K85.90 - Acute pancreatitis without necrosis or infection, unspecified SNOMED: 36705932 (4) Alcohol abuse ICD Codes: F10.10 - Alcohol abuse, uncomplicated SNOMED: 91541750 Assessment/Plan: ivf pain control improving labs start clears will fu Subjective ROS Limited/Unobtainable: Yes Allergies: Coded Allergies: No Known Allergies (Unverified , 10/05/15) Objective Last 24 Hour Vital Signs Date Time Temp Pulse Resp B/P (MAP) Pulse Ox O2 Delivery O2 Flow Rate FiO2 09/19/19 04:00 98.0 77 18 117/79 (92) 97 09/19/19 01:00 Room Air 09/18/19 21:18 98.6 82 16 120/75 100 Room Air 09/18/19 21:00 98.6 82 16 120/75 100 Room Air 09/18/19 19:21 98.6 86 16 109/68 100 Room Air 09/18/19 18:26 98.6 09/18/19 17:45 90 19 Room Air 09/18/19 17:45 98.6 19 117/77 97 Room Air 09/18/19 17:33 98.6 90 19 117/77 (90) 97 Room Air Laboratory Tests 09/18/19 18:00: White Blood Count 8.7, Red Blood Count 4.86, Hemoglobin 12.6L, Hematocrit 38.2L , Mean Corpuscular Volume 78L, Mean Corpuscular Hemoglobin 25.9L, Mean Corpuscular Hemoglobin Concent 33.0, Red Cell Distribution Width 18.3H, Platelet Count 116L, Mean Platelet Volume 8.8, Neutrophils (%) (Auto) 62.5, Lymphocytes (%) (Auto) 23.7, Monocytes (%) (Auto) 12.5H, Eosinophils (%) (Auto) 0.3, Basophils (%) (Auto) 1.0, Sodium Level 128L, Potassium Level 3.2L, Chloride Level 90L, Carbon Dioxide Level 26, Anion Gap 12, Blood Urea Nitrogen 5L, Creatinine 0.8, Estimat Glomerular Filtration Rate > 60, Glucose Level 97, Calcium Level 8.8, Total Bilirubin 0.7, Aspartate Amino Transf (AST/SGOT) 163H, Alanine Aminotransferase (ALT/SGPT) 122H, Alkaline Phosphatase 127H, Total Protein 7.9, Albumin 3.3L, Globulin 4.6, Albumin/Globulin Ratio 0.7L, Lipase 1985H, Serum Alcohol 106 09/18/19 18:45: Urine Color Pale yellow, Urine Appearance Clear, Urine pH 6.5, Urine Specific [place] 1.005, Urine Protein Negative, Urine Glucose (UA) Negative, Urine Ketones Negative, Urine Blood Negative, Urine Nitrite Negative, Urine Bilirubin Negative, Urine Urobilinogen Normal, Urine Leukocyte Esterase Negative, Urine Opiates Screen Negative, Urine Barbiturates Screen Negative, Phencyclidine (PCP ) Screen Negative, Urine Amphetamines Screen Negative, Urine Benzodiazepines Screen Negative, Urine Cocaine Screen Negative, Urine Marijuana (THC) Screen PositiveH 09/18/19 19:10: Prothrombin Time 11.9H, Prothromb Time International Ratio 1.1, Activated Partial Thromboplast Time 26 09/19/19 06:33: White Blood Count 6.2, Red Blood Count 4.46L, Hemoglobin 11.3L, Hematocrit 37.3L , Mean Corpuscular Volume 84, Mean Corpuscular Hemoglobin 25.4L, Mean Corpuscular Hemoglobin Concent 30.4L, Red Cell Distribution Width 17.8H, Platelet Count 95L, Mean Platelet Volume 7.5, Neutrophils (%) (Auto) , Lymphocytes (%) (Auto) , Monocytes (%) (Auto) , Eosinophils (%) (Auto) , Basophils (%) (Auto) , Sodium Level 134L, Potassium Level 3.2L, Chloride Level 98, Carbon Dioxide Level 27, Anion Gap 9, Blood Urea Nitrogen 5L, Creatinine 0.9 , Estimat Glomerular Filtration Rate > 60, Glucose Level 80, Calcium Level 7.7L , Total Bilirubin 0.8, Aspartate Amino Transf (AST/SGOT) 113H, Alanine Aminotransferase (ALT/SGPT) 93H, Alkaline Phosphatase 102, Total Protein 6.5, Albumin 2.7L, Globulin 3.8, Albumin/Globulin Ratio 0.7L, Lipase 953H, Neutrophils % (Manual) [Pending], Lymphocytes % (Manual) [Pending], Platelet Estimate [Pending], Platelet Morphology [Pending] Height (Feet): 5 Height (Inches): 8.00 Weight (Pounds): 140 General Appearance: alert EENT: normal ENT inspection Neck: supple Cardiovascular: normal rate Respiratory/Chest: decreased breath sounds Abdomen: hypoactive bowel sounds, tender Extremities: non-tender Steven Grey MD Sep 19, 2019 08:43
[2019-09-19 12:00] VITALS: BP 114/81
--- NOTE | 2019-09-19 13:42 | NUR ---
CASE MANAGEMENT:REVIEW 38 YR OLD MALE WALKED INTO ER CC: ABDOMINAL PAIN W/NAUSEA AND VOMITING X9 DAYS SI: ACUTE PANCREATITIS. HYPONATREMIA ALCOHOL ABUSE 98.6 90 19 117/77 97% ON RA PLT-116 NA-128 K-3.2 AST/ALT+163/122 LIPASE+1984 SERUM ALCOHOL+106 URINE(+) THC IS: IV REGLAN X1 IV PEPCID X1 IV MORPHINE X1 1L NS BOLUS X2 IV BENADRYL X1 : TO MED/SURG 3 EAST Addendum: 09/19/19 at 1708 by KALINA DUNN LVN LVN INTERQUAL CRITERIA MET
--- NOTE | 2019-09-19 13:51 | NUR ---
INSURANCE REVIEW AND CLINICALS FAXED TO [facility] F: [phone] AND [phone]
[2019-09-19 16:00] VITALS: BP 126/84
--- NOTE | 2019-09-19 17:06 | NUR ---
NURSE NOTES DR Rizzo was here to see patient,patient wants to go home,patient does not want to stay another day in the hospital .DR talked with patient regarding staying in the hospital,patient adamant about leaving the hospital.Patient state he will take care of himself and state he will not drink.DR state patient wants to leave against medical Advice,have patient to sign paper Against Medical advice.IV removed ID hospital band removed,patient has his personal belongings.Patient is alert and oriented x4
--- NOTE | 2019-09-20 07:00 | Progress Note ---
DATE: 09/19/2019 SUBJECTIVE: This is a 38-year-old male currently in bed, comfortable, doing better. Abdominal pain is improving. PHYSICAL EXAMINATION: VITAL SIGNS: Blood pressure 114/81, pulse 80, temperature 98.2. HEENT: NAD. CHEST: Bilaterally clear. CARDIOVASCULAR: Regular rhythm. ABDOMEN: Soft. Mild tenderness. EXTREMITIES: CCE. LABORATORY DATA: White count 6.2, hemoglobin 11, hematocrit 37, platelets are 95. Chemistry panel, sodium 134, potassium 3.2, BUN 5, creatinine 0.9. Lipase 953. Calcium 7.7. Toxicology report is positive for marijuana. Urine is negative. Imaging report, abdominal ultrasound showing a heterogeneous prominence of pancreatic head. Further evaluation with contrast recommended for possible tumor or pancreatitis. No biliary ductal dilatation. CT of abdomen Imaging, findings show acute and distal pancreatitis without vascular complications, substantial acute pancreatic fluid collection. Pancreatitis may be due to pancreatic uncinate process, peripherally enhancing hypoattenuation, recommended MRI of urinary bladder, gallbladder, acute cholecystitis. ASSESSMENT: 1. Acute pancreatitis. 2. Elevated LFTs. PLAN: We will continue NPO, IV fluids, Zofran, clear liquid diet, KCl replacement. Blayne Rizzo M.D. DR: Sosa JOB#: [id number] CC:
--- NOTE | 2019-09-20 11:36 | NUR ---
*-* INSURANCE *-* ALL AVAILABLE CLINICALS HAVE BEEN FAXED ( NO D/C SUMMARY IN THE SYSTEM) [facility] F: [phone] F: [phone]
--- NOTE | 2019-09-21 15:37 | Discharge Summary ---
Discharge Summary Discharge Summary _ DATE OF ADMISSION: 09/18/2019 DATE OF DISCHARGE: 09/19/2019 Patient left AGAINST MEDICAL ADVICE REASON FOR ADMISSION: 38 years old male was evaluated the day prior in the emergency department for abdominal pain and vomiting. Patient was found to have pancreatitis. Blood alcohol level was positive. Liver function tests were elevated. Patient was treated with IV hydration, Pepcid, Zofran and analgesic. Patient decided to sign AGAINST MEDICAL ADVICE. However at home, patient continued to vomit. He reported it was a foamy material, no blood or coffee grounds emesis. He denied melena or bright red blood per rectum. Patient also reported abdominal pain. He denied fever or chills. No chest pain or shortness of breath. Upon evaluation vital signs were stable. Laboratory work-up revealed no leukocytosis,, hemoglobin 12.6 hematocrit 28.2, platelet count 116. Sodium 128, potassium 3.2. Stable renal parameters. Glucose 97. AST 163, ALT 122. Alkaline phosphatase 127. Lipase 1984. Urine toxicology screen was positive for marijuana. EKG revealed sinus rhythm In emergency department patient received IV fluids,, analgesics Pepcid, antiemetic. Potassium was replaced. Patient subsequently admitted for further management. CONSULTANTS: GI specialist Dr. Grey [facility]RSE: Patient admitted to medical surgical floor. Patient started on IV fluids and initially was kept n.p.o. Analgesic and antiemetic provided as needed. GI specialist followed. Sodium improved from 128 up to 134. Lipase trended down to 953 from 1984. AST down to 113, ALT down to 93. Patient started on clear liquid diet as tolerated. Patient decided to leave AGAINST MEDICAL ADVICE. The risks and consequences of signing AGAINST MEDICAL ADVICE were discussed with patient in detail. Patient verbalized understanding, nevertheless signed AMA form and left. FINAL DIAGNOSES: Acute pancreatitis Elevated LFT Cannabis abuse Alcohol abuse I have been assigned to dictate discharge summary for this account. I was not involved in the patient's management. Beulah Holly NP Sep 21, 2019 15:37
== END 2019-09-19 16:50 | disposition left against medical advice (07) | DRG 282 ==
LOC: EMR 17:43 → EDBEDREQ 20:28 → 3E 20:49
DX: K85.90 Acute pancreatitis without necrosis or infection, unspecified (principal); E87.1 Hypo-osmolality and hyponatremia; F10.10 Alcohol abuse, uncomplicated; F12.10 Cannabis abuse, uncomplicated; R79.89 Other specified abnormal findings of blood chemistry
CPT/HCPCS: 36415; 80053; 80307; 81003; 83690; 85007; 85025; 85610; 85730; 96361; 96374; 96375; 99285; G0480; J2405; J2765; J7030; J8499

== ENCOUNTER 2019-09-27 21:31 | Emergency (ER) | payer OTHER ==
[~2019-09-27] VITALS: Ht 172.7 cm; Wt 65.8 kg
[2019-09-27 21:45] VITALS: BP 123/76
--- NOTE | 2019-09-27 21:45 | NUR ---
ED Nurse Note: PT WALKED IN TO ED C/O UPPER ABD PAIN WITH UNK ONSET. PT STATES 8/10 ACHING PAIN AFTER ETOH. STATES NV. PT WAS SEEN FOR SAME S/S LAST WEEK BUT LEFT AMA. AAOX4, AMBULATORY, VSS, URINE COLLECTED AND SENT TO LAB.
--- NOTE | 2019-09-27 21:50 | NUR ---
ED Nurse Note: BLOOD COLLECTED AND SENT TO LAB. PT MEDICATED
[2019-09-27] MEDS ORDERED: HYDROmorphone 1mg/ml Carpuject IVP ONE (22:15)
--- NOTE | 2019-09-27 22:17 | Emergency Room Report ---
History of Present Illness General Chief Complaint: Abdominal Pain Source: Patient Present Illness HPI This a 38-year-old male who has a history of alcoholic pancreatitis. He presents with chief plan abdominal pain. Is been ongoing for about a week now. He was admitted here end of August for pancreatitis and signed out AMA. He said is been hurting since then. Has occasional nausea and vomiting but no diarrhea. Vomiting is small in nature. No blood. No diarrhea. No fever chills. Pain is 9 out of 10. Worse with eating and drinking. Continue to drink alcohol. Denies any other complaint. Allergies: Coded Allergies: No Known Allergies (Unverified , 10/05/15) COVID-19 Screening Contact w/high risk pt: No Recent Travel to affected area: No Experienced COVID-19 symptoms?: No COVID-19 Testing performed MATCH UP WORKER: No Patient History Past Medical History: see triage record, old chart reviewed Past Surgical History: other Pertinent Family History: none Social History: Reports: alcohol use Immunizations: other Reviewed Nursing Documentation: PMH: Agreed; PSxH: Agreed Nursing Documentation-PMH Past Medical History: No Stated History Hx Cardiac Problems: No Hx Cancer: No Hx Gastrointestinal Problems: Yes Hx Neurological Problems: No Hx Dizziness: Yes Hx Numbness: Yes Hx Weakness: Yes - generalized, shae lower extremities Review of Systems Eye: Denies: eye pain, blurred vision ENT: Denies: ear pain, nose congestion, throat swelling Respiratory: Denies: cough, shortness of breath Cardiovascular: Denies: chest pain, palpitations Gastrointestinal: Reports: abdominal pain, nausea, vomiting; Denies: diarrhea Musculoskeletal: Denies: back pain, joint pain Skin: Denies: rash Neurological: Denies: headache, numbness Endocrine: Denies: increased thirst, increased urine Hematologic/Lymphatic: Denies: easy bruising All Other Systems: negative except mentioned in HPI Physical Exam Vital Signs Date Time Temp Pulse Resp B/P (MAP) Pulse Ox O2 Delivery O2 Flow Rate FiO2 09/27/19 21:39 98.1 93 16 123/76 (92) 97 Room Air Vitals normal Sp02 EP Interpretation: reviewed, normal General Appearance: well appearing, no apparent distress, alert Head: normocephalic, atraumatic Eyes: bilateral eye PERRL, bilateral eye EOMI ENT: hearing grossly normal, normal pharynx Neck: full range of motion, supple, no meningismus Respiratory: chest non-tender, lungs clear, normal breath sounds Cardiovascular #1: regular rate, rhythm, no murmur Gastrointestinal: normal bowel sounds, no mass, no organomegaly, no bruit, non- distended, tenderness - Left upper quadrant Musculoskeletal: back normal, normal range of motion, gait/station normal Psychiatric: mood/affect normal Medical Decision Making Diagnostic Impression: Primary Impression: Alcoholic hepatitis Qualified Codes: K70.10 - Alcoholic hepatitis without ascites Additional Impressions: Alcohol abuse Abdominal pain Qualified Codes: R10.10 - Upper abdominal pain, unspecified ER Course Patient presents with abdominal pain. Lipase much better. Still have elevated LFTs. This probably secondary to alcohol abuse. He is tolerating liquid. No evidence of dehydration. Will discharge home. Last Vital Signs Date Time Temp Pulse Resp B/P (MAP) Pulse Ox O2 Delivery O2 Flow Rate FiO2 09/27/19 21:39 98.1 93 16 123/76 (92) 97 Room Air Status: improved Disposition: HOME, SELF-CARE Condition: Stable Scripts Hydrocodone/Acetaminophen 5-325* (HYDROCODONE/ACETAMINOPHEN 5-325*) 1 Each Tablet 1 TAB ORAL Q6H PRN for For Pain, #10 TAB 0 Refills Prov: Gareth Knight MD 09/27/19 Patient Instructions: Abdominal Pain, Adult Additional Instructions: Stop using alcohol. Go to rehab. Follow-up with your doctor in 7 days. Return if worse. Gareth Knight MD Sep 27, 2019 22:17
[2019-09-27 22:39] LABS: APPEARANCE,URINE CLEAR; BILIRUBIN, URINE NEGATIVE (NEGATIVE); COLOR,URINE PALE YELLOW; GLUCOSE, URINE (UA) NEGATIVE (NEGATIVE); KETONES,URINE NEGATIVE (NEGATIVE); LEUKOCYTE ESTERASE ,URINE NEGATIVE (NEGATIVE); NITRITE,URINE NEGATIVE (NEGATIVE); PH,URINE 6 (4.5-8.0); PROTEIN,URINE NEGATIVE (NEGATIVE); UROBILINOGEN,URINE NORMAL MG/DL (0.0-1.0)
[2019-09-27 23:00] VITALS: BP 121/67
[2019-09-27 23:00] LABS: BASOPHILS % (AUTO) 2.1 % (0.0-2.0); EOSINOPHILS % (AUTO) 2.8 % (0.0-3.0); HEMATOCRIT 35.5 % (42.0-52.0); HEMOGLOBIN 11.4 G/DL (14.2-18.0); LYMPHOCYTES % (AUTO) 45.2 % (20.0-45.0); MEAN CORPUSCULAR VOLUME 81 FL (80-99); MONOCYTES % (AUTO) 8.7 % (1.0-10.0); NEUTROPHILS % (AUTO) 41.3 % (45.0-75.0); PLATELET COUNT 291 K/UL (150-450); RED BLOOD COUNT 4.37 M/UL (4.70-6.10); RED CELL DISTRIBUTION WIDTH 18.8 % (11.6-14.8)
[2019-09-27 23:13] LABS: ANION GAP 12 mmol/L (5-15); BLOOD UREA NITROGEN 3 mg/dL (7-18); CALCIUM 8.2 MG/DL (8.5-10.1); CARBON DIOXIDE 27 MMOL/L (21-32); CHLORIDE 92 MMOL/L (98-107); CREATININE 0.8 MG/DL (0.55-1.30); POTASSIUM 3.9 MMOL/L (3.5-5.1); SODIUM 131 MMOL/L (136-145)
[2019-09-27 23:17] LABS: ALANINE AMINOTRANSFERASE 107 U/L (12-78); ALBUMIN 3.3 G/DL (3.4-5.0); ALBUMIN/GLOBULIN RATIO 0.8 (1.0-2.7); ALKALINE PHOSPHATASE 141 U/L (46-116); ASPARTATE AMINO TRANSFERASE 118 U/L (15-37); BILIRUBIN,TOTAL 0.3 MG/DL (0.2-1.0)
[2019-09-27] MEDS ORDERED: HYDROCODON-ACE1 EA15 ORAL (23:30)
[2019-09-27 23:35] VITALS: BP 121/67
--- NOTE | 2019-09-27 23:35 | NUR ---
ER DISCHARGE NOTE: Patient is cleared to be discharged per ERMD, pt is aox4, on room air, with stable vital signs. pt was given dc and prescription instructions, pt was able to verbalize understanding, pt id band and iv site removed without complications. pt is able to ambulate with steady gait. pt took all belongings.
== END 2019-09-27 23:35 | disposition home or self-care (01) ==
LOC: EMR 22:09
DX: K70.10 Alcoholic hepatitis without ascites (principal); F10.10 Alcohol abuse, uncomplicated; R10.10 Upper abdominal pain, unspecified
CPT/HCPCS: 36415; 80053; 81003; 83690; 85025; 96361; 96374; 96375; 99284; J1170; J2405; J7030

== ENCOUNTER 2019-10-09 22:34 | Inpatient (IN) | payer OTHER ==
[~2019-10-09] VITALS: Ht 172.7 cm; Wt 50.3 kg
[~2019-10-09 22:34] MED LIST changes: +HYDROCODON-ACE1 EA15 ORAL
--- NOTE | 2019-10-09 22:59 | Emergency Room Report ---
History of Present Illness General Chief Complaint: Abdominal Pain Source: Patient Present Illness HPI Patient is a 39-year-old male presents for increased abdominal pain. Reports having pain throughout his entire abdomen. Primarily in the epigastric area. Previous history of pancreatitis. Reports having fairly frequent alcohol intake. Had previously had imaging which showed a pancreatic head abnormality and some pancreatic edema. Had multiple ER visits over the past few months. Denies any fever. Denies any hematemesis. Allergies: Coded Allergies: No Known Allergies (Unverified , 10/05/15) COVID-19 Screening Contact w/high risk pt: No Recent Travel to affected area: No Experienced COVID-19 symptoms?: Yes COVID-19 Testing performed PAPER STEAMER: No Patient History Past Medical History: see triage record Reviewed Nursing Documentation: PMH: Agreed; PSxH: Agreed Nursing Documentation-PMH Hx Cardiac Problems: No Hx Cancer: No Hx Gastrointestinal Problems: Yes - pancreatitis Hx Neurological Problems: No Hx Dizziness: Yes Hx Numbness: Yes Hx Weakness: Yes - generalized, shae lower extremities Review of Systems All Other Systems: negative except mentioned in HPI Physical Exam Vital Signs Date Time Temp Pulse Resp B/P (MAP) Pulse Ox O2 Delivery O2 Flow Rate FiO2 10/09/19 22:51 98.2 100 19 102/72 (82) 98 Room Air Sp02 EP Interpretation: reviewed, normal General Appearance: normal inspection, no apparent distress, alert, GCS 15, Chronically Ill Head: atraumatic ENT: normal ENT inspection, hearing grossly normal, normal voice Neck: normal inspection, full range of motion, supple, no bony tend Respiratory: normal inspection, lungs clear, normal breath sounds, no respiratory distress, no retraction, no wheezing Cardiovascular #1: regular rate, rhythm, no edema Gastrointestinal: normal inspection, normal bowel sounds, non tender, soft, no guarding, no hernia Genitourinary: no CVA tenderness Musculoskeletal: normal inspection, back normal, normal range of motion Neurologic: alert, motor strength/tone normal, credit risk management director III-XII nml as tested, oriented x3, responsive, speech normal, normal inspection Psychiatric: normal inspection, judgement/insight normal, mood/affect normal Medical Decision Making Diagnostic Impression: Primary Impression: Pancreatitis Additional Impressions: Pancreatic cyst Alcoholic hepatitis ER Course Patient presented for abdominal pain. Differential diagnoses included ischemic bowel, appendicitis, perforated viscus, abdominal aortic aneurysm, inferior myocardial infarction, viral gastroenteritis among others.Because patient's complexity imaging studies, and laboratory testing ordered.Appears to have some evidence of pancreatitis. Laboratory testing showed . Electrolytes were unremarkable. Lipase was normal White blood count was slightly elevated. Alcohol level was elevated. Abdominal ultrasound showed cystic lesion to the head of the pancreas approximately a 4 x 5 x 6 in diameter. Patient's previous imaging had showed some evidence of pancreatic head irregularity. Dr. Blayne Rizzo was contacted for inpatient management due to panel physician. Labs Test 10/09/19 23:00 White Blood Count 11.2 K/UL (4.8-10.8) Red Blood Count 4.96 M/UL (4.70-6.10) Hemoglobin 13.2 G/DL (14.2-18.0) Hematocrit 40.3 % (42.0-52.0) Mean Corpuscular Volume 81 FL (80-99) Mean Corpuscular Hemoglobin 26.6 PG (27.0-31.0) Mean Corpuscular Hemoglobin Concent 32.8 G/DL (32.0-36.0) Red Cell Distribution Width 17.2 % (11.6-14.8) Platelet Count 215 K/UL (150-450) Mean Platelet Volume 6.7 FL (6.5-10.1) Neutrophils (%) (Auto) 54.5 % (45.0-75.0) Lymphocytes (%) (Auto) 30.1 % (20.0-45.0) Monocytes (%) (Auto) 13.5 % (1.0-10.0) Eosinophils (%) (Auto) 0.3 % (0.0-3.0) Basophils (%) (Auto) 1.6 % (0.0-2.0) Prothrombin Time 11.8 SEC (9.30-11.50) Prothromb Time International Ratio 1.1 (0.9-1.1) Activated Partial Thromboplast Time 27 SEC (23-33) Sodium Level 126 MMOL/L (136-145) Potassium Level 4.4 MMOL/L (3.5-5.1) Chloride Level 90 MMOL/L (98-107) Carbon Dioxide Level 27 MMOL/L (21-32) Anion Gap 9 mmol/L (5-15) Blood Urea Nitrogen 6 mg/dL (7-18) Creatinine 1.0 MG/DL (0.55-1.30) Estimat Glomerular Filtration Rate > 60 mL/min (>60) Glucose Level 92 MG/DL (74-106) Calcium Level 8.9 MG/DL (8.5-10.1) Total Bilirubin 0.4 MG/DL (0.2-1.0) Aspartate Amino Transf (AST/SGOT) 65 U/L (15-37) Alanine Aminotransferase (ALT/SGPT) 59 U/L (12-78) Alkaline Phosphatase 155 U/L (46-116) Total Protein 8.3 G/DL (6.4-8.2) Albumin 3.8 G/DL (3.4-5.0) Globulin 4.5 g/dL Albumin/Globulin Ratio 0.8 (1.0-2.7) Lipase 137 U/L (73-393) Serum Alcohol 196 mg/dL Last Vital Signs Date Time Temp Pulse Resp B/P (MAP) Pulse Ox O2 Delivery O2 Flow Rate FiO2 10/09/19 22:51 98.2 100 19 102/72 (82) 98 Room Air Status: improved Disposition: ADMITTED INPATIENT Condition: Stable Kendall Pandya MD Oct 09, 2019 22:59
[2019-10-09 23:00] VITALS: BP 102/72
--- NOTE | 2019-10-09 23:00 | NUR ---
ED Nurse Note: Pt walked into ED from home for c/o severe abdominal pain that has been intermittent for the past few months. Pt states pain became intolerable tonight which brought him to the ED. He also reports N/V and admits to drinkng alcohol tonight for his birthday. He has hx of pancreatitis and states pain feels similar to that diagnosis. Pt is breathing normal and unlabored with 100% oxygen saturation on RA. Pt is aaox4, but does smell of alcohol. Pt connected to quality assurance monitor body, blood drawn by RN and sent to lab. All safety measures met, will continue to monitor.
[2019-10-09] MEDS ORDERED: Morphine Sulfate 4mg/ml Inj (IV USE ONLY) IVP ONE (23:15)
[2019-10-09 23:24] LABS: BASOPHILS % (AUTO) 1.6 % (0.0-2.0); EOSINOPHILS % (AUTO) 0.3 % (0.0-3.0); HEMATOCRIT 40.3 % (42.0-52.0); HEMOGLOBIN 13.2 G/DL (14.2-18.0); LYMPHOCYTES % (AUTO) 30.1 % (20.0-45.0); MEAN CORPUSCULAR VOLUME 81 FL (80-99); MONOCYTES % (AUTO) 13.5 % (1.0-10.0); NEUTROPHILS % (AUTO) 54.5 % (45.0-75.0); PLATELET COUNT 215 K/UL (150-450); RED BLOOD COUNT 4.96 M/UL (4.70-6.10); RED CELL DISTRIBUTION WIDTH 17.2 % (11.6-14.8); WHITE BLOOD COUNT 11.2 K/UL (4.8-10.8)
[2019-10-09 23:32] LABS: ANION GAP 9 mmol/L (5-15); BLOOD UREA NITROGEN 6 mg/dL (7-18); CALCIUM 8.9 MG/DL (8.5-10.1); CARBON DIOXIDE 27 MMOL/L (21-32); CHLORIDE 90 MMOL/L (98-107); POTASSIUM 4.4 MMOL/L (3.5-5.1); SODIUM 126 MMOL/L (136-145)
[2019-10-09 23:35] LABS: INR 1.1 (0.9-1.1)
[2019-10-09 23:39] LABS: ALANINE AMINOTRANSFERASE 59 U/L (12-78); ALBUMIN 3.8 G/DL (3.4-5.0); ALBUMIN/GLOBULIN RATIO 0.8 (1.0-2.7); ALKALINE PHOSPHATASE 155 U/L (46-116); ASPARTATE AMINO TRANSFERASE 65 U/L (15-37); BILIRUBIN,TOTAL 0.4 MG/DL (0.2-1.0)
[2019-10-10] LABS: BILIRUBIN, URINE NEGATIVE (NEGATIVE); GLUCOSE, URINE (UA) NEGATIVE (NEGATIVE); KETONES,URINE NEGATIVE (NEGATIVE); LEUKOCYTE ESTERASE ,URINE 1+ (NEGATIVE); NITRITE,URINE NEGATIVE (NEGATIVE); PH,URINE 5 (4.5-8.0); PROTEIN,URINE 1+ (NEGATIVE); UROBILINOGEN,URINE 1 MG/DL (0.0-1.0)
[2019-10-10 00:01] LABS: APPEARANCE,URINE CLEAR; COLOR,URINE YELLOW
[2019-10-10 01:30] VITALS: BP 120/78
--- NOTE | 2019-10-10 01:30 | NUR ---
ED Nurse Note: Pt is resting in bed, NAD. Pt reports decreased pain. Pt is able to use urinal bedside without assistance. Safety measures remain in place, will continue to monitor. Pt also provided with warm blankets. See vitals flow sheet.
--- NOTE | 2019-10-10 01:54 | Diagnostic Imaging Report ---
EXAM: US Abdomen Complete CLINICAL HISTORY: PAIN TECHNIQUE: Real-time ultrasound of the abdomen with image documentation. COMPARISON: 01/24/19. FINDINGS: Liver: Liver measures 12.35 cm. Diffuse fatty liver. No intrahepatic bile duct dilation. Gallbladder: Gallbladder wall measures 0.21 cm. No gallstones. Common bile duct: Common bile duct measures 0.2 cm. No stones. No dilation. Pancreas: A complex cystic mass is identified at the level of the pancreatic head measuring 6.0 x 5.0 x 4.0 cm. Peripheral hypoechoic thickened wall with irregularity seen. Although no increased vascularity is seen within the wall, in the context of pancreatitis, pancreatic abscess, early pseudocyst, versus pancreatic neoplasm not entirely excluded. Remainder of the pancreas unremarkable. Kidneys: Right kidney measures 12.1 x 3.4 x 4.6 cm. Left kidney measures 9.9 x 5.8 x 4.9 cm. No stones. No hydronephrosis. Spleen: Spleen measures 7.64 cm. The spleen is suboptimally seen. Aorta: Unremarkable. No aneurysm. Inferior vena cava: Unremarkable. IMPRESSION: 1. Complex cystic structure within the pancreatic head as described with wide differential diagnosis includes complex pseudocyst, abscess, pancreatic necrosis or less likely neoplasm not entirely excluded. 2. Diffuse fatty liver.
[2019-10-10 03:00] VITALS: BP 115/78
--- NOTE | 2019-10-10 03:00 | NUR ---
ED Nurse Note: Pt is sleeping at this time. NAD. Pt breathing is normal and unlabored. Pt does not show any s/s of severe pain or discomfort. Will continue to monitor.
--- NOTE | 2019-10-10 04:00 | NUR ---
ED Nurse Note: Pt is sleeping in bed at this time. NAD. Safety measures in place, will cont. to monitor.
--- NOTE | 2019-10-10 04:30 | NUR ---
ED Nurse Note: Report given to TIERRA Ward.
--- NOTE | 2019-10-10 04:50 | NUR ---
ED Nurse Note: Pt is stable for transfer to [facility] unit at this time. Pt is aaox4, breathing is normal and unlabored. Pt taken to unit via wheelchair by RN. Pt IV is patent and intact. Pt belongings sent with pt. DEDRICKS.
--- NOTE | 2019-10-10 04:52 | NUR ---
NURSE NOTES: Received pt from er nurse Kaden Barnett. pt is awake, A&Ox4, and verbal. Pt has no sob, fever, and cough at the moment. Pt has pain 4/10, he already got morphine in ER. pt is ambulatory and no isolation. Iv is intact and asymptomatic. Bed is in the lowest position,locked and call light within reach. We will keep monitoring the pt.
[2019-10-10] MEDS ORDERED: Morphine Sulfate 2mg/ml Inj(IV/IM USE ONLY) IVP PRN (05:30)
--- NOTE | 2019-10-10 07:08 | NUR ---
HAND-OFF: Report given to TIERRA Rubio.
--- NOTE | 2019-10-10 07:10 | NUR ---
NURSE NOTES: Received patient in bed, awake, alert and oriented x4. Patient seems sober @ this time. Denies pain,nausea,vomiting or discomfort @ this time. IVF is running,no s/s of infiltration on IV site.Patient is on NPO for now except ice chips and meds. Offered ice chips.Abdomen is soft to touch, flat, not distended. Bed is in lowest position and locked. Call light within reach.Will continue to monitor.
[2019-10-10 08:00] VITALS: BP 108/68
--- NOTE | 2019-10-10 09:49 | NUR ---
NURSE NOTES: Charge nurse spoke to patient and patient said he drinks alcohol everyday. 5 beers a day. RN contacted Dr. Rizzo and received banana bag order and ativan. Read back and carried out.
--- NOTE | 2019-10-10 09:53 | NUR ---
NURSE NOTES: Patient was seen by Dr. Rizzo and RN received clear liquid diet for the patient.
[2019-10-10] MEDS ORDERED: LORazepam 1mg tab ORAL PRN (10:00)
--- NOTE | 2019-10-10 10:00 | NUR ---
NURSE NOTES: Rn received order from Dr. Rizzo to d/c ativan 3 doses. Give librium 25mg 3 doses and d/c give ativan PRN. Addendum: 10/10/19 at 1447 by AMY SHER RN ativan PRN after librium
[2019-10-10 12:00] VITALS: BP 120/76
[2019-10-10] MEDS: Folic Acid 1 MG, Magnesium Sulfate 2,000 MG, Multivitamin - 12 Injection 10 ML in Sodiu... IV SCH (12:05)
[2019-10-10] MEDS: Thiamine 100mg in D5W 55ml IVPB SCH (12:05)
[2019-10-10] MEDS ORDERED: LORazepam 1mg tab ORAL SCH (14:00)
[2019-10-10] MEDS: chlordiazePOXIDE 25mg Cap ORAL SCH ×2 (14:10→21:17)
--- NOTE | 2019-10-10 14:10 | NUR ---
NURSE NOTES: Administered librium as ordered and educated patient on possible side effect and fall precaution. RN reminded patient to call nurses if needed and if noted with side effects of librium. Patient fully understood. Patient requests to have regular diet. RN left a message to Dr. Rizzo.
--- NOTE | 2019-10-10 15:45 | NUR ---
NURSE NOTES: chucker received call from Jenny freed said there is a covid specimen under patient's name sent by ER nurse early this morning but no order was found and patient said he was never swabbed. ER doctor's note says patient is a risk for covid. ER put order and received isolation or from Dr. Rizzo and made him aware about the situation. Will continue to monitor.
--- NOTE | 2019-10-10 15:50 | NUR ---
NURSE NOTES: Covid-19 swab done properly from right nostril and sent the specimen to lab and Jenny made aware.
[2019-10-10 16:00] VITALS: BP 121/87
--- NOTE | 2019-10-10 18:00 | History and Physical Report ---
DATE OF ADMISSION: 10/10/2019 HISTORY OF PRESENT ILLNESS: This is a young 39-year-old male who came to the emergency room for having abdominal pain, nausea, vomiting. The patient was found to have generalized weakness, hypokalemia, alcohol abuse, acute pancreatitis. The patient is alert and oriented. PAST MEDICAL HISTORY: Alcohol abuse, drinking beer about 6 to 7 beers daily. He is also taking some marijuana but denies any cocaine or other drugs. Denies any smoking. 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 The patient also has a history of hypokalemia, thrombocytopenia, marijuana consumption. The patient came with acute pancreatitis. PHYSICAL EXAMINATION: VITAL SIGNS: Blood pressure 108/68, pulse 91, respirations is 18, O2 saturation 97%, temperature 97.2. HEENT: NAD. CHEST: Bilateral few crackles. CARDIOVASCULAR: Regular rhythm. No gallop. No murmur. ABDOMEN: Soft. Positive bowel sounds. Mild tenderness GENITOURINARY: Deferred. LABORATORY AND DIAGNOSTIC DATA: White count are 11.2, hemoglobin is 13, hematocrit 49, platelets are 215. Chemistry panel, sodium 126, potassium 4.4, BUN 6, creatinine 0.1. His lipase is 137, alkaline phosphatase 155. Toxicology serum alcohol level was 196. Urine is showing 1+ leukocyte esterase. ASSESSMENT: 1. Abdominal pain. 2. Alcohol abuse. 3. History of pancreatitis. PLAN: 1. We will admit on medical floor. 2. Add Librium 25 mg t.i.d., banana bag, soft diet. 3. GI consult. 4. Consider psych consult. Blayne Rizzo M.D. DR: Sosa JOB#: [id number] CC:
--- NOTE | 2019-10-10 19:30 | NUR ---
NURSE NOTES: received report from sita brothers. patient is on bed, awake and verbally responsive. ambulates. on regular diet. PUI COVID 19. with iv line on the left forearm running banana bag at 100 ml/hr. on room air. no sob. not in any form of respiratory distress. reiterated to call and ask for assistance. bed locked and in lowest position. call light and light button within easy reach. will continue plan of care
--- NOTE | 2019-10-10 19:43 | NUR ---
HAND-OFF: Report given to Darling and endorsed plan of care.
[2019-10-10 19:51] VITALS: BP 135/76
--- NOTE | 2019-10-10 20:30 | NUR ---
NURSE NOTES: patient requested to have a sleeping pill. dr. palomino informed and received an order to give ambien Qhs PRN. order noted and carried out.
--- NOTE | 2019-10-10 22:00 | NUR ---
NURSE NOTES: medien given as ordered.
[2019-10-10] MEDS: Zolpidem 5mg tab ORAL PRN (22:18)
[2019-10-11] VITALS: BP 121/75
[2019-10-11 04:00] VITALS: BP 105/81
[2019-10-11] MEDS: chlordiazePOXIDE 25mg Cap ORAL SCH (05:38)
--- NOTE | 2019-10-11 07:24 | NUR ---
HAND-OFF: Report given sita dodd.
--- NOTE | 2019-10-11 07:44 | NUR ---
NURSE NOTES: Report received from Darling MAYORGA. Patient seen on rounds, asleep but easily rousable, comfortable, not in distress. PIV on left forearm patent and intact. Pt is ambulatory and continent. Covid swab results pending. Isolation precautions maintained. Bed low and locked, siderails up x2, call light placed within reach and instructed to call nurse for assistance. Will continue to monitor.
[2019-10-11 08:00] VITALS: BP 103/76
[2019-10-11] MEDS ORDERED: LORazepam 1mg tab ORAL PRN ×2 (10:00→16:45)
[2019-10-11] MEDS ORDERED: Omnipaque-300 100ml vial INJ PRN (10:15)
--- NOTE | 2019-10-11 10:20 | NUR ---
Social Work This SW received a consult due to substance abuse. Patient has had multiple readmissions related to substance abuse. This Sw met with patient, while patient also admits that he needs to "cut down" or stop using marijuana, cigarettes and alcohol "daily." Patient explains, "I'm stressed and this is how I handle it." Patient showing some insight into the problem and stating some willingness for change. Substance abuse resources provided; while patient stating he plans to follow up with AA sponsor. Patient lives with his mother and also explains his diet has not been well (needing to improve this). 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 Psychiatry recommended, as needed due to possible depression and anxiety vs MD to address as needed. Outpatient counseling recommended, while patient plans to follow up with AA sponsor. Patient remains independent, A/0 x4 and plans to discharge to home with his mother upon discharge. Counseling provided; health risks discussed with patient, along with ways of coping, instead of using substances. Patient making statements, "I'm not sure I can ever stop completely, I enjoy this too much, maybe I can cut down some." Patient stating recognition to the medical implications involved in his own choices.
--- NOTE | 2019-10-11 10:45 | NUR ---
NURSE NOTES: Noted CT Abdomen/pelvis orders w/w/o contrast. Pt informed of NPO status and that he is not to eat or drink anything by mouth for anticipated procedure. Pt verbalized understanding.
[2019-10-11] MEDS: Folic Acid 1 MG, Magnesium Sulfate 2,000 MG, Multivitamin - 12 Injection 10 ML in Sodiu... IV SCH (10:50)
[2019-10-11] MEDS: Thiamine 100mg in D5W 55ml IVPB SCH (10:50)
--- NOTE | 2019-10-11 10:56 | General Progress Note ---
Assessment/Plan Assessment/Plan: (1) Elevated LFTs ICD Codes: R79.89 - Other specified abnormal findings of blood chemistry SNOMED: 997840978, 201804149 (2) Cannabis abuse ICD Codes: F12.10 - Cannabis abuse, uncomplicated SNOMED: 55448346 (3) Pancreatitis ICD Codes: K85.90 - Acute pancreatitis without necrosis or infection, unspecified SNOMED: 21640924 (4) Alcohol abuse ICD Codes: F10.10 - Alcohol abuse, uncomplicated SNOMED: 16785723 Assessment/Plan: ivf pain control plan repeat CT to fu on pancreatic pseudocyst npo us reviewed CA 19-9 Subjective Allergies: Coded Allergies: No Known Allergies (Unverified , 10/05/15) Objective Last 24 Hour Vital Signs Date Time Temp Pulse Resp B/P (MAP) Pulse Ox O2 Delivery O2 Flow Rate FiO2 10/11/19 09:00 Room Air 10/11/19 08:00 98.6 100 18 103/76 (85) 100 10/11/19 04:00 98.1 94 19 105/81 (89) 98 10/11/19 00:00 98.6 90 19 121/75 (90) 98 10/10/19 21:00 Room Air 10/10/19 19:51 98.7 91 19 135/76 (95) 99 10/10/19 16:00 98.1 95 18 121/87 (98) 100 10/10/19 12:00 98.1 89 18 120/76 (91) 100 Intake and Output 10/10/19 10/11/19 19:00 07:00 Intake Total 956 ml 550 ml Balance 956 ml 550 ml Intake Oral 450 ml IV Total 956 ml 100 ml # Voids 2 3 # Bowel Movements 2 Height (Feet): 5 Height (Inches): 8.00 Weight (Pounds): 111 General Appearance: no apparent distress EENT: normal ENT inspection Neck: supple Cardiovascular: normal rate Respiratory/Chest: decreased breath sounds Abdomen: hypoactive bowel sounds, tender Extremities: non-tender Steven Grey MD Oct 11, 2019 10:56
--- NOTE | 2019-10-11 11:04 | NUR ---
RD ASSESSMENT & RECOMMENDATIONS SEE CARE ACTIVITY FOR COMPLETE ASSESSMENT DAILY ESTIMATED NEEDS: Needs based on underweight 50.5kg 30-40 kcals/kg 8049-1962 total kcals 1-1.5 g protein/kg 51-76 g total protein 25-35kcal/kg mL/kg 3686-8233 total fluid mLs NUTRITION DIAGNOSIS: Increased kcal needs r/t h/o ETOH abuse, underweight status as evidenced by pt w/ reported chronic alcohol use, adm w/ blood alcohol level of 196,elev LFT's, BMI underweight per guidelines, pt is 72% of [place] body weight. CURRENT DIET:Now Regular PO DIET RECOMMENDATIONS: SOFT DIET/ LOW Na ADDITIONAL RECOMMENDATIONS: 1) Monitor for continued good po intake 2) Check lytes daily, replete as needed 3) Obtain a standing weight as able or calibrated bedscale wt 4) Ensure enlive w/ meals + snacks in b/w meals 5) Continue banana bag . .
--- NOTE | 2019-10-11 11:05 | NUR ---
NURSE NOTES: Spoke with [facility], CT scan of abdomen/pelvis cannot be performed today. Pt is PUI and covid swab results are still pending. Dr. Grey informed, awaiting response.
[2019-10-11 12:00] VITALS: BP 112/67
--- NOTE | 2019-10-11 14:52 | NUR ---
CASE MANAGEMENT: INITIAL REVIEW 39YR OLD MALE FROM HOME CC: ABDOMINAL PAIN SI:PANCREATITIS . PSEUDOCYST 98.2 100 19 102/72 98% ON RA WBC 11.2 NA+ 126 CL-90 BUN 6 AST 65 ALKP 155 IS:IVF NS BOLUS X1 IV ZOFRAN X1 IV PEPCID IV MORPHINE SULFATE X1 US ABD Complete-Complex cystic structure within the pancreatic head as described with wide differential diagnosis includes complex pseudocyst, abscess, pancreatic necrosis or less likely neoplasm not entirely excluded. Diffuse fatty liver. \: 4E MED SURG UNIT DCP: HOME WHEN STABLE PLAN: CONTROL PAIN CASE MANAGEMENT: REVIEW 10/11/19 SI:PANCREATITIS . PSEUDOCYST 98.6 100 18 103/76 100% ON RA IS:IV LEVAQUIN QD IV THIAMINE/D5 QD IV FOLIC ACID/NS/MTVIT QD \: 4E MED SURG UNIT DCP: HOME WHEN STABLE PLAN: CONTROL PAIN CT ABD F/U WITH PSEUDOCYST CA 19-9 NPO COVID-19 R/O CONSIDER PSYCH CONSULT
[2019-10-11 16:00] VITALS: BP 120/62
[2019-10-11] MEDS ORDERED: chlordiazePOXIDE 25mg Cap ORAL SCH (18:00)
--- NOTE | 2019-10-11 18:00 | Progress Note ---
DATE: 10/11/2019 This is a 39-year-old male who came with alcohol abuse and rule out COVID. Also had abdominal pain. The patient is currently doing better. PHYSICAL EXAMINATION: VITAL SIGNS: Blood pressure 120/62, pulse 92, no fever. CHEST: Bilaterally clear. CARDIOVASCULAR: Regular rhythm. ABDOMEN: Soft. EXTREMITIES: No CCE. ASSESSMENT AND PLAN: 1. Acute pancreatitis. 2. Alcohol abuse. 3. Rule out COVID. . Continue isolation. Continue banana bag. Discussed with the Psychiatry, Dr. Baxter, and added more antianxiety medications. Blayne Rizzo M.D. DR: DIOGENES JOB#: [id number] CC:
--- NOTE | 2019-10-11 19:23 | NUR ---
HAND-OFF: Report given to Sylvia MAYORGA.
--- NOTE | 2019-10-11 19:24 | NUR ---
NURSE NOTES: Received pt awake,a&o 4, and verbal. No sob,fever,cough and pain at the moment. iv is intact and asymptomatic. Bed in the lowest position,locked, and alarm on. call light within the lowest position. we will keep monitoring the pt
[2019-10-11 20:00] VITALS: BP 118/65
[2019-10-11] MEDS: Zolpidem 5mg tab ORAL PRN (20:43)
--- NOTE | 2019-10-12 | Initial Psychiatric Evaluation ---
Psychiatry Consultation Psychiatry Consultation Chief Complaint: Abdominal Pain History of Present Illness: 39-year-old male who came to the emergency room for having abdominal pain, nausea, vomiting. The patient was found to have generalized weakness, hypokalemia, alcohol abuse, acute pancreatitis. the pt pw with anxiety restlessness insomnia and tremor Allergies: Coded Allergies: No Known Allergies (Unverified , 10/05/15) Past Psychiatric History: anxiety and depression no sa Medication History Scheduled PRN Hydrocodone/Acetaminophen 5-325* (Hydrocodone/Acetaminophen 5-325*), 1 TAB ORAL Q6H PRN for For Pain Patient History History Provided By: Patient, Medical Record, PMD Objective Data Height (Feet): 5 Height (Inches): 8.00 Weight (Pounds): 111 Additional Comments: alert and oriented to situation and place. Mood is anxious. Affect is flat. Thought process, there is a paucity of thought content. Thought content, no suicidal or homicidal ideation. Cognition is impaired. Insight and judgment is impaired. Assessment/Plan Problem List: (1) Alcoholic hepatitis ICD Codes: K70.10 - Alcoholic hepatitis without ascites SNOMED: 627711888 (2) Alcohol dependence ICD Codes: F10.20 - Alcohol dependence, uncomplicated SNOMED: 23411591 Diagnosis [place] I: ativan thiamine olate Bakari Thakur MD Oct 12, 2019 00:00
[2019-10-12 04:00] VITALS: BP 122/62
[2019-10-12 06:25] LABS: BASOPHILS % (AUTO) 1.1 % (0.0-2.0); HEMOGLOBIN 11.3 G/DL (14.2-18.0); LYMPHOCYTES % (AUTO) 33.9 % (20.0-45.0); MEAN CORPUSCULAR VOLUME 83 FL (80-99); MONOCYTES % (AUTO) 11.8 % (1.0-10.0); NEUTROPHILS % (AUTO) 52.3 % (45.0-75.0); PLATELET COUNT 185 K/UL (150-450); RED BLOOD COUNT 4.33 M/UL (4.70-6.10); RED CELL DISTRIBUTION WIDTH 17.5 % (11.6-14.8)
[2019-10-12 06:39] LABS: ALANINE AMINOTRANSFERASE 40 U/L (12-78); ALBUMIN 2.7 G/DL (3.4-5.0); ALBUMIN/GLOBULIN RATIO 0.7 (1.0-2.7); ALKALINE PHOSPHATASE 129 U/L (46-116); AMYLASE 116 U/L (25-115); ANION GAP 9 mmol/L (5-15); ASPARTATE AMINO TRANSFERASE 37 U/L (15-37); BILIRUBIN,TOTAL 0.2 MG/DL (0.2-1.0); BLOOD UREA NITROGEN 4 mg/dL (7-18); CALCIUM 8.9 MG/DL (8.5-10.1); CARBON DIOXIDE 24 MMOL/L (21-32); CHLORIDE 100 MMOL/L (98-107); CHOLESTEROL 105 MG/DL (< 200); CREATININE 0.8 MG/DL (0.55-1.30); HDL CHOLESTEROL 51 MG/DL (40-60); POTASSIUM 3.8 MMOL/L (3.5-5.1); SODIUM 133 MMOL/L (136-145); TRIGLYCERIDES 37 MG/DL (30-150)
--- NOTE | 2019-10-12 07:15 | NUR ---
HAND-OFF: Report given to TIERRA De La Garza.
--- NOTE | 2019-10-12 07:51 | NUR ---
NURSE NOTES: Report received from TIERRA Ward. Patient seen awake, alert, and oriented. No s/sx of SOB/Distress, no c/o any pain or gi/gu discomfort. IV line located left arm gauge 20. No signs of edema, redness, or infiltration. Bed placed on lowest position and locked. Call light placed within reach and will continue to monitor.
--- NOTE | 2019-10-12 08:27 | NUR ---
NURSE NOTES: Was notified that patient resulted negative for COVID, informed Dr. Rizzo and was given orders for discharge. Asked patient if he had a pcp and verbalized none, offered Dr. Rizzo for a f/u and he refused. Provided resident with discharge teachings and risks vs benefits of not having f/u consult. Patient verbalized understanding and continued to refuse. Went over patient belongings with patient all accounted for. Patient in stable condition upon discharge, ambulatory, self care alert and oriented x4. IV line and ID band removed. Transportation arranged by patient and left unit safely.
--- NOTE | 2019-10-12 09:58 | NUR ---
*-* INSURANCE *-* ALL AVAILALE CLINICALS AND REVIEWS HAVE BEEN FAXED TO: ( NO D/C SUM IN THE SYSTEM) LYDIA BAL F: [phone] Addendum: 10/12/19 at 1549 by AXEL GASPAR LYDIA Bal Ref#[id number] #[phone] fax#[phone] D/C Summary
--- NOTE | 2019-10-12 18:15 | Progress Note ---
DATE: 10/12/2019 SUBJECTIVE: This is a young male, who came to the emergency room for alcohol abuse, intoxication and abdominal pain. The patient was admitted on medical floor. The patient was given banana bag and Ativan. Psych consult was obtained. GI consult was also obtained. His workup was so far negative. The patient tolerating diet. He also had a COVID test was negative. The patient is going to go home. DISCHARGE DIAGNOSES: 1. Alcohol abuse. 2. Abdominal pain is resolved. DIET: He is on a regular diet. ACTIVITY: As tolerated. DISCHARGE MEDICATION: The patient was recommended to quit alcohol and continue supportive treatment. Blayne Rizzo M.D. DR: REGINE JOB#: [id number] CC:
--- NOTE | 2019-10-13 23:37 | Psych Consult Progress Note ---
Psychiatry Progress Note Psychiatry Progress Note Neurological/Psychiatric: Reports: anxiety, depressed Allergies: Coded Allergies: No Known Allergies (Unverified , 10/05/15) Objective Data Height (Feet): 5 Height (Inches): 8.00 Weight (Pounds): 111 Additional Comments: alert and oriented to situation and place. Mood is anxious. Affect is flat. Thought process, there is a paucity of thought content. Thought content, no suicidal or homicidal ideation. Cognition is impaired. Insight and judgment is impaired. Assessment/Plan Problem List: (1) Alcohol dependence ICD Codes: F10.20 - Alcohol dependence, uncomplicated SNOMED: 40251005 (2) Alcoholic hepatitis ICD Codes: K70.10 - Alcoholic hepatitis without ascites SNOMED: 859878892 Assessment/Plan: ativan prn olate thiamine librium Bakari Baxter MD Oct 13, 2019 23:37
--- NOTE | 2019-10-14 11:07 | NUR ---
*-* INSURANCE *-* UPDATED CLINICALS HAVE BEEN FAXED NO D/C SUM IN THE SYSTEM: [facility] Ref#[id number] #[phone] fax#[phone] D/C Summary
--- NOTE | 2019-10-14 13:31 | Discharge Summary ---
Discharge Summary Discharge Summary _ DATE OF ADMISSION: 10/10/2019 DATE OF DISCHARGE: 10/12/2019 DISCHARGED BY: Dr. Rizzo REASON FOR ADMISSION: 39 years old male with past medical history of ETOH abuse, presented to emergency department with complaints of abdominal pain, nausea and vomiting. Patient was found to have hypokalemia and pancreatitis. Laboratory work-up revealed mild leukocytosis WBC 11.2, sodium 126. Glucose 154. AST 65, ALT 59. Lipase 137 . Urinalysis revealed no evidence of urinary tract infection. Serum alcohol 196. Patient was swabbed for COVID-19 in the emergency department . Abdominal ultrasound demonstrated complex cystic structure within the pancreatic head . Diffuse fatty liver. In emergency department patient received Pepcid , Zofran, one liter of fluids, analgesic and admitted for further management. CONSULTANTS: GI specialist Dr. Grey psychiatrist Dr. Baxter [facility] COURSE: Patient admitted to medical surgical floor. Patient started on IV fluids with banana bag. Anxiolytic provided as needed. GI and psych consults requested. Pain management was addressed. Patient slowly started on diet as tolerated. Antiemetic were on board as needed. CA-19-9 within normal limits. Patient was advised to repeat CT scan of abdomen /pelvis as outpatient. Patient was counseled on abstinence from ETOH and other street drugs. LFT trended down. Na up to 133 with saline solution. COVID 19 was not detected. Patient was slowly improving. Abdominal pain resolved. Initially present mild leukocytosis resolved, likely was reactive Patient clinically stabilized and was ready for discharge home FINAL DIAGNOSES: Pancreatitis Pancreatic cyst Alcohol abuse Elevated LFT/alcoholic hepatitis Cannabis abuse DISCHARGE MEDICATIONS: See Medication Reconciliation list. DISCHARGE INSTRUCTIONS: Patient was discharged home. Follow-up with a primary care provider in 1 week. Patient was counseled on abstinence from ETOH and other street drugs I have been assigned to dictate discharge summary for this account. I was not involved in the patient's management. Beulah Holly NP Oct 14, 2019 13:31
--- NOTE | 2019-10-15 14:25 | NUR ---
*-* INSURANCE *-* DISCHARGE SUMMARY HAS BEEN FAXED TO: [facility] Ref#[id number] #[phone] fax#[phone] D/C Summary
== END 2019-10-12 08:25 | disposition home or self-care (01) | DRG 439 ==
LOC: EMR 23:08 → 4E 10-10 02:31 → EDBEDREQ 10-10 03:32
DX: K85.90 Acute pancreatitis without necrosis or infection, unspecified (principal); K86.2 Cyst of pancreas; K70.10 Alcoholic hepatitis without ascites; F12.10 Cannabis abuse, uncomplicated
CPT/HCPCS: 36415; 76700; 80053; 80061; 81003; 82150; 82962; 83690; 85025; 85610; 85730; 86850; 86900; 86901; 96361; 96374; 96375; 99285; G0480; J2405; J7030

== ENCOUNTER 2019-10-25 21:58 | Inpatient (IN) | payer OTHER ==
[~2019-10-25] VITALS: Ht 180.3 cm; Wt 76.8 kg
--- NOTE | 2019-10-25 22:16 | Emergency Room Report ---
History of Present Illness General Chief Complaint: Alcohol Intoxication Source: Patient Present Illness HPI Patient is a 39-year-old male brought in by EMS after increased alcohol intoxication. He reports having drink alcohol as well as taking gabapentin and Benadryl. He reports having some abdominal discomfort. He denies any injury. States he is been having some changes in concentration after taking these medications with alcohol. 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 Patient History Past Medical History: see triage record Reviewed Nursing Documentation: PMH: Agreed; PSxH: Agreed Nursing Documentation-PMH Past Medical History: No History, Except For Hx Cardiac Problems: No Hx Cancer: No Hx Gastrointestinal Problems: Yes - pancreatitis Hx Neurological Problems: Yes Hx Dizziness: Yes Hx Numbness: Yes Hx Weakness: Yes - generalized, shae lower extremities Review of Systems All Other Systems: negative except mentioned in HPI Physical Exam Vital Signs Date Time Temp Pulse Resp B/P (MAP) Pulse Ox O2 Delivery O2 Flow Rate FiO2 10/25/19 21:58 97.5 96 18 134/90 (105) 98 Room Air Sp02 EP Interpretation: reviewed, normal General Appearance: normal inspection, well appearing, no apparent distress, alert, GCS 15 Head: atraumatic ENT: normal ENT inspection, hearing grossly normal, normal voice Neck: normal inspection, full range of motion, supple, no bony tend Respiratory: normal inspection, lungs clear, normal breath sounds, no respiratory distress, no retraction, no wheezing Cardiovascular #1: regular rate, rhythm, no edema Gastrointestinal: normal inspection, normal bowel sounds, non tender, soft, no guarding, no hernia Genitourinary: no CVA tenderness Musculoskeletal: normal inspection, back normal, normal range of motion Neurologic: alert, motor strength/tone normal, dry kiln loader III-XII nml as tested, oriented x3, responsive, speech normal, normal inspection Psychiatric: normal inspection, judgement/insight normal, mood/affect normal Medical Decision Making Diagnostic Impression: Primary Impression: Alcohol dependence Additional Impression: Pancreatitis ER Course Patient presented for altered mental status and recent alcohol intake. Differential diagnosis include was not limited to alcohol intoxication, pancreatitis, hypokalemia among others. Because of complexity of patient's case laboratory tests and imaging studies were ordered. Laboratory testing showed markedly elevated lipase. Patient was noted to have history of alcohol dependence and this appears to be alcohol related he had previous pseudocyst. Dr. Jesus Gallagher was contacted for inpatient management Laboratory Tests Test 10/25/19 22:30 10/25/19 22:40 10/26/19 00:11 10/26/19 20:00 White Blood Count 9.6 K/UL (4.8-10.8) Red Blood Count 4.71 M/UL (4.70-6.10) Hemoglobin 12.5 G/DL (14.2-18.0) L Hematocrit 39.1 % (42.0-52.0) L Mean Corpuscular Volume 83 FL (80-99) Mean Corpuscular Hemoglobin 26.6 PG (27.0-31.0) L Mean Corpuscular Hemoglobin Concent 32.0 G/DL (32.0-36.0) Red Cell Distribution Width 18.9 % (11.6-14.8) H Platelet Count 321 K/UL (150-450) Mean Platelet Volume 5.6 FL (6.5-10.1) L Neutrophils (%) (Auto) 50.6 % (45.0-75.0) Lymphocytes (%) (Auto) 40.2 % (20.0-45.0) Monocytes (%) (Auto) 6.6 % (1.0-10.0) Eosinophils (%) (Auto) 1.0 % (0.0-3.0) Basophils (%) (Auto) 1.6 % (0.0-2.0) Sodium Level 136 MMOL/L (136-145) Potassium Level 4.1 MMOL/L (3.5-5.1) Chloride Level 101 MMOL/L (98-107) Carbon Dioxide Level 27 MMOL/L (21-32) Anion Gap 8 mmol/L (5-15) Blood Urea Nitrogen 4 mg/dL (7-18) L Creatinine 0.9 MG/DL (0.55-1.30) Estimated Glomerular Filtration Rate > 60 mL/min (>60) Glucose Level 79 MG/DL (74-106) Calcium Level 8.6 MG/DL (8.5-10.1) Total Bilirubin 0.4 MG/DL (0.2-1.0) Aspartate Amino Transferase (AST) 99 U/L (15-37) H Alanine Aminotransferase (ALT) 51 U/L (12-78) Alkaline Phosphatase 173 U/L (46-116) H Total Protein 7.9 G/DL (6.4-8.2) Albumin 3.2 G/DL (3.4-5.0) L Globulin 4.7 g/dL Albumin/Globulin Ratio 0.7 (1.0-2.7) L Serum Alcohol 212 mg/dL Urine Color Pale yellow Urine Appearance Clear Urine pH 5 (4.5-8.0) Urine Specific [place] 1.010 (1.005-1.035) Urine Protein Negative (NEGATIVE) Urine Glucose (UA) Negative (NEGATIVE) Urine Ketones Negative (NEGATIVE) Urine Blood Negative (NEGATIVE) Urine Nitrite Negative (NEGATIVE) Urine Bilirubin Negative (NEGATIVE) Urine Urobilinogen Normal MG/DL (0.0-1.0) Urine Leukocyte Esterase Negative (NEGATIVE) Urine RBC 0 /HPF (0 - 0) Urine WBC 0 /HPF (0 - 0) Urine Squamous Epithelial Cells None /LPF (NONE/OCC) Urine Bacteria None /HPF (NONE) Urine Opiates Screen Negative (NEGATIVE) Urine Barbiturates Screen Negative (NEGATIVE) Phencyclidine (PCP) Screen Negative (NEGATIVE) Urine Amphetamines Screen Negative (NEGATIVE) Urine Benzodiazepines Screen Positive (NEGATIVE) H Urine Cocaine Screen Negative (NEGATIVE) Urine Marijuana (THC) Screen Positive (NEGATIVE) H Lipase 1956 U/L (73-393) H Test 10/27/19 05:01 White Blood Count Pending Red Blood Count Pending Hemoglobin Pending Hematocrit Pending Mean Corpuscular Volume Pending Mean Corpuscular Hemoglobin Pending Mean Corpuscular Hemoglobin Concent Pending Red Cell Distribution Width Pending Platelet Count Pending Mean Platelet Volume Pending Neutrophils (%) (Auto) Pending Lymphocytes (%) (Auto) Pending Monocytes (%) (Auto) Pending Eosinophils (%) (Auto) Pending Basophils (%) (Auto) Pending Sodium Level Pending Potassium Level Pending Chloride Level Pending Carbon Dioxide Level Pending Blood Urea Nitrogen Pending Creatinine Pending Estimated Glomerular Filtration Rate Pending Glucose Level Pending Calcium Level Pending Total Bilirubin Pending Aspartate Amino Transferase (AST) Pending Alanine Aminotransferase (ALT) Pending Alkaline Phosphatase Pending Total Protein Pending Albumin Pending Globulin Pending Triglycerides Level Pending Cholesterol Level Pending LDL Cholesterol Pending HDL Cholesterol Pending Cholesterol/HDL Ratio Pending Amylase Level Pending Lipase Pending Last Vital Signs Date Time Temp Pulse Resp B/P (MAP) Pulse Ox O2 Delivery O2 Flow Rate FiO2 10/25/19 21:58 97.5 96 18 134/90 (105) 98 Room Air Status: unchanged Disposition: ADMITTED INPATIENT Condition: Stable Kendall Pandya MD Oct 25, 2019 22:16
[2019-10-25] MEDS ORDERED: Thiamine HCl 100 MG in D5W 55 ML IVPB ONE (22:30)
[2019-10-25 22:44] VITALS: BP 134/90
[2019-10-25 22:50] LABS: APPEARANCE,URINE CLEAR; BILIRUBIN, URINE NEGATIVE (NEGATIVE); COLOR,URINE PALE YELLOW; GLUCOSE, URINE (UA) NEGATIVE (NEGATIVE); KETONES,URINE NEGATIVE (NEGATIVE); LEUKOCYTE ESTERASE ,URINE NEGATIVE (NEGATIVE); NITRITE,URINE NEGATIVE (NEGATIVE); PH,URINE 5 (4.5-8.0); PROTEIN,URINE NEGATIVE (NEGATIVE); UROBILINOGEN,URINE NORMAL MG/DL (0.0-1.0)
[2019-10-25 22:52] LABS: BASOPHILS % (AUTO) 1.6 % (0.0-2.0); HEMATOCRIT 39.1 % (42.0-52.0); HEMOGLOBIN 12.5 G/DL (14.2-18.0); LYMPHOCYTES % (AUTO) 40.2 % (20.0-45.0); MEAN CORPUSCULAR VOLUME 83 FL (80-99); MONOCYTES % (AUTO) 6.6 % (1.0-10.0); NEUTROPHILS % (AUTO) 50.6 % (45.0-75.0); PLATELET COUNT 321 K/UL (150-450); RED BLOOD COUNT 4.71 M/UL (4.70-6.10); RED CELL DISTRIBUTION WIDTH 18.9 % (11.6-14.8); WHITE BLOOD COUNT 9.6 K/UL (4.8-10.8)
[2019-10-25 23:03] LABS: ANION GAP 8 mmol/L (5-15); BLOOD UREA NITROGEN 4 mg/dL (7-18); CALCIUM 8.6 MG/DL (8.5-10.1); CARBON DIOXIDE 27 MMOL/L (21-32); CHLORIDE 101 MMOL/L (98-107); CREATININE 0.9 MG/DL (0.55-1.30); POTASSIUM 4.1 MMOL/L (3.5-5.1); SODIUM 136 MMOL/L (136-145)
[2019-10-25 23:08] LABS: ALANINE AMINOTRANSFERASE 51 U/L (12-78); ALBUMIN 3.2 G/DL (3.4-5.0); ALBUMIN/GLOBULIN RATIO 0.7 (1.0-2.7); ALKALINE PHOSPHATASE 173 U/L (46-116); ASPARTATE AMINO TRANSFERASE 99 U/L (15-37); BILIRUBIN,TOTAL 0.4 MG/DL (0.2-1.0)
[2019-10-26] VITALS: BP 128/87
[2019-10-26 02:01] VITALS: BP 137/87
[2019-10-26] MEDS ORDERED: Acetaminophen 500mg (ES) tab ORAL PRN (07:30)
--- NOTE | 2019-10-26 09:12 | Consultation ---
History of Present Illness General Date patient seen: Oct 26, 2019 Chief Complaint: Alcohol Intoxication Present Illness Allergies: Coded Allergies: No Known Allergies (Unverified , 10/05/15) Medication History Scheduled PRN Hydrocodone/Acetaminophen 5-325* (Hydrocodone/Acetaminophen 5-325*), 1 TAB ORAL Q6H PRN for For Pain Patient History Healthcare decision maker Resuscitation status Advanced Directive on File Physical Exam Last 24 Hour Vital Signs Date Time Temp Pulse Resp B/P (MAP) Pulse Ox O2 Delivery O2 Flow Rate FiO2 10/26/19 02:04 Room Air 10/26/19 02:01 98.9 89 22 137/87 (104) 99 10/26/19 01:40 97.8 86 16 134/81 96 Room Air 10/26/19 00:00 98.0 88 16 128/87 98 Room Air 10/25/19 22:44 96 18 Room Air 10/25/19 22:44 97.5 96 18 134/90 98 Room Air 10/25/19 21:58 97.5 96 18 134/90 (105) 98 Room Air Laboratory Tests Test 10/25/19 22:30 10/25/19 22:40 10/26/19 00:11 White Blood Count 9.6 K/UL (4.8-10.8) Red Blood Count 4.71 M/UL (4.70-6.10) Hemoglobin 12.5 G/DL (14.2-18.0) L Hematocrit 39.1 % (42.0-52.0) L Mean Corpuscular Volume 83 FL (80-99) Mean Corpuscular Hemoglobin 26.6 PG (27.0-31.0) L Mean Corpuscular Hemoglobin Concent 32.0 G/DL (32.0-36.0) Red Cell Distribution Width 18.9 % (11.6-14.8) H Platelet Count 321 K/UL (150-450) Mean Platelet Volume 5.6 FL (6.5-10.1) L Neutrophils (%) (Auto) 50.6 % (45.0-75.0) Lymphocytes (%) (Auto) 40.2 % (20.0-45.0) Monocytes (%) (Auto) 6.6 % (1.0-10.0) Eosinophils (%) (Auto) 1.0 % (0.0-3.0) Basophils (%) (Auto) 1.6 % (0.0-2.0) Sodium Level 136 MMOL/L (136-145) Potassium Level 4.1 MMOL/L (3.5-5.1) Chloride Level 101 MMOL/L (98-107) Carbon Dioxide Level 27 MMOL/L (21-32) Anion Gap 8 mmol/L (5-15) Blood Urea Nitrogen 4 mg/dL (7-18) L Creatinine 0.9 MG/DL (0.55-1.30) Estimat Glomerular Filtration Rate > 60 mL/min (>60) Glucose Level 79 MG/DL (74-106) Calcium Level 8.6 MG/DL (8.5-10.1) Total Bilirubin 0.4 MG/DL (0.2-1.0) Aspartate Amino Transf (AST/SGOT) 99 U/L (15-37) H Alanine Aminotransferase (ALT/SGPT) 51 U/L (12-78) Alkaline Phosphatase 173 U/L (46-116) H Total Protein 7.9 G/DL (6.4-8.2) Albumin 3.2 G/DL (3.4-5.0) L Globulin 4.7 g/dL Albumin/Globulin Ratio 0.7 (1.0-2.7) L Serum Alcohol 212 mg/dL Urine Color Pale yellow Urine Appearance Clear Urine pH 5 (4.5-8.0) Urine Specific [place] 1.010 (1.005-1.035) Urine Protein Negative (NEGATIVE) Urine Glucose (UA) Negative (NEGATIVE) Urine Ketones Negative (NEGATIVE) Urine Blood Negative (NEGATIVE) Urine Nitrite Negative (NEGATIVE) Urine Bilirubin Negative (NEGATIVE) Urine Urobilinogen Normal MG/DL (0.0-1.0) Urine Leukocyte Esterase Negative (NEGATIVE) Urine RBC 0 /HPF (0 - 0) Urine WBC 0 /HPF (0 - 0) Urine Squamous Epithelial Cells None /LPF (NONE/OCC) Urine Bacteria None /HPF (NONE) Urine Opiates Screen Negative (NEGATIVE) Urine Barbiturates Screen Negative (NEGATIVE) Phencyclidine (PCP) Screen Negative (NEGATIVE) Urine Amphetamines Screen Negative (NEGATIVE) Urine Benzodiazepines Screen Positive (NEGATIVE) H Urine Cocaine Screen Negative (NEGATIVE) Urine Marijuana (THC) Screen Positive (NEGATIVE) H Lipase 1956 U/L (73-393) H Height (Feet): 5 Height (Inches): 11.00 Weight (Pounds): 170 Medications Current Medications Medications (Trade) Dose Ordered Sig/[place] Route PRN Reason Start Time Stop Time Status Last Admin Dose Admin Acetaminophen (Tylenol) 500 mg Q6H PRN ORAL Mild Pain (Pain Scale 1-3) 10/26/19 07:30 11/25/19 07:29 10/26/19 08:13 Sodium Chloride 1,000 ml @ 75 mls/hr [id number] IV 10/26/19 09:00 11/25/19 08:59 Assessment/Plan Assessment/Plan: (1) Abdominal pain (2) Pancreatitis (3) Alcohol abuse seen dictated Jairon Larson Oct 26, 2019 09:12
[2019-10-26] MEDS ORDERED: Morphine Sulfate 2mg/ml Inj(IV/IM USE ONLY) IVP PRN (09:15)
[2019-10-26 12:00] VITALS: BP 119/72
--- NOTE | 2019-10-26 12:00 | Consultation ---
DATE OF CONSULTATION: 10/26/2019 PAIN MANAGEMENT CONSULTATION CONSULTING PHYSICIAN: Lisandra Langford MD. REFERRING PHYSICIAN: Jesus Espino MD. PHYSICIAN VERTICAL BORING MILL OPERATOR: CASE Roblero. CHIEF COMPLAINT: Abdominal pain. HISTORY OF PRESENT ILLNESS: This is a 39-year-old male who has been seen on the med/surg floor of [facility] for initial pain management consultation. The patient was admitted under the care of Dr. Espino due to complaints of abdominal pain and found to have pancreatitis with lipase being at 1956. The patient reports that he was drinking alcohol of four beers with couple of shots of hard alcohol and was smoking marijuana. He started to have severe pain and was brought to the hospital and admitted, and is complaining of severe pain rating at 10/10. Due to this, we were consulted so that the patient would have adequate pain control while here in the hospital. PAST MEDICAL HISTORY: Pancreatitis. PAST SURGICAL HISTORY: Denies. SOCIAL HISTORY: Smokes marijuana and cigarettes. Alcohol abuse. Denies IV drug abuse. ALLERGIES: No known drug allergies. MEDICATIONS: Stated that he took Neurontin and Benadryl, but they are not prescribed for him. REVIEW OF SYSTEMS: Denies rash, fever, chills, sweating, dizziness, drowsiness, blurred vision, sore throat, or change in weight. No shortness of breath or chest pain. No nausea, vomiting, diarrhea, or blood in the stool or urine. No dysuria. PHYSICAL EXAMINATION: GENERAL: Alert, awake, and oriented. VITAL SIGNS: Blood pressure 137/87, heart rate 89, oxygen saturation 99%, respiratory rate 22, temperature 98.9 degrees Fahrenheit. HEENT: PERRLA. NECK: Range of motion is full in all directions. No tenderness to paracervical muscles. No adenopathy. LUNGS: Decreased breath sounds bilaterally. HEART: S1 and S2, regular. ABDOMEN: Tenderness to palpation. BACK: Range of motion is full in flexion and extension. EXTREMITIES: Upper and lower extremity range of motion is full in all directions. No cyanosis. No clubbing. Sensory is reduced. Reflexes are not obtainable. No adenopathy. ASSESSMENT AND PLAN: This is a 39-year-old male with abdominal pain, pancreatitis, and alcohol abuse. The patient will be started on morphine 1 mg IV every four hours as needed for severe pain. He was advised to cease the alcohol usage. He seems to understand. We recommend the patient to be seen by engravings polisher as well as psychiatrist as per ophthalmology technician. The patient was discussed with Dr. Langford and he concurred. We will follow the patient. Thank you very much for courtesy of this consultation. Lisandra Langford M.D. CASE Roblero DR: ELPIDIO JOB#: [id number] CC: MANNY
--- NOTE | 2019-10-26 12:58 | General Progress Note ---
Assessment/Plan Problem List: (1) Pancreatitis ICD Codes: K85.90 - Acute pancreatitis without necrosis or infection, unspecified SNOMED: 93626259 (2) Acute alcoholic intoxication ICD Codes: F10.929 - Alcohol use, unspecified with intoxication, unspecified SNOMED: 99909023, 4880854 (3) Alcohol dependence ICD Codes: F10.20 - Alcohol dependence, uncomplicated SNOMED: 31443598 Assessment/Plan: ivf npo pain control drug screen lipid panel repeat labs Subjective ROS Limited/Unobtainable: Yes Allergies: Coded Allergies: No Known Allergies (Unverified , 10/05/15) Objective Last 24 Hour Vital Signs Date Time Temp Pulse Resp B/P (MAP) Pulse Ox O2 Delivery O2 Flow Rate FiO2 10/26/19 12:00 98.5 88 21 119/72 (88) 98 10/26/19 09:00 Room Air 10/26/19 02:04 Room Air 10/26/19 02:01 98.9 89 22 137/87 (104) 99 10/26/19 01:40 97.8 86 16 134/81 96 Room Air 10/26/19 00:00 98.0 88 16 128/87 98 Room Air 10/25/19 22:44 96 18 Room Air 10/25/19 22:44 97.5 96 18 134/90 98 Room Air 10/25/19 21:58 97.5 96 18 134/90 (105) 98 Room Air Laboratory Tests 10/25/19 22:30: White Blood Count 9.6, Red Blood Count 4.71, Hemoglobin 12.5L, Hematocrit 39.1L , Mean Corpuscular Volume 83, Mean Corpuscular Hemoglobin 26.6L, Mean Corpuscular Hemoglobin Concent 32.0, Red Cell Distribution Width 18.9H, Platelet Count 321, Mean Platelet Volume 5.6L, Neutrophils (%) (Auto) 50.6, Lymphocytes (%) (Auto) 40.2, Monocytes (%) (Auto) 6.6, Eosinophils (%) (Auto) 1.0, Basophils (%) (Auto) 1.6, Sodium Level 136, Potassium Level 4.1, Chloride Level 101, Carbon Dioxide Level 27, Anion Gap 8, Blood Urea Nitrogen 4L, Creatinine 0.9, Estimat Glomerular Filtration Rate > 60, Glucose Level 79, Calcium Level 8.6, Total Bilirubin 0.4, Aspartate Amino Transf (AST/SGOT) 99H, Alanine Aminotransferase (ALT/SGPT) 51, Alkaline Phosphatase 173H, Total Protein 7.9, Albumin 3.2L, Globulin 4.7, Albumin/Globulin Ratio 0.7L, Serum Alcohol 212 10/25/19 22:40: Urine Color Pale yellow, Urine Appearance Clear, Urine pH 5, Urine Specific [place] 1.010, Urine Protein Negative, Urine Glucose (UA) Negative, Urine Ketones Negative, Urine Blood Negative, Urine Nitrite Negative, Urine Bilirubin Negative, Urine Urobilinogen Normal, Urine Leukocyte Esterase Negative, Urine RBC 0, Urine WBC 0, Urine Squamous Epithelial Cells None, Urine Bacteria None, Urine Opiates Screen Negative, Urine Barbiturates Screen Negative, Phencyclidine (PCP) Screen Negative, Urine Amphetamines Screen Negative, Urine Benzodiazepines Screen PositiveH, Urine Cocaine Screen Negative, Urine Marijuana (THC) Screen PositiveH 10/26/19 00:11: Lipase 1956H Height (Feet): 5 Height (Inches): 11.00 Weight (Pounds): 170 General Appearance: alert EENT: normal ENT inspection Neck: supple Cardiovascular: normal rate Respiratory/Chest: decreased breath sounds Abdomen: normal bowel sounds, non tender, soft Extremities: non-tender Steven Grey MD Oct 26, 2019 12:58
[2019-10-26] MEDS ORDERED: Folic Acid 1 MG, Magnesium Sulfate 2,000 MG, Multivitamin - 12 Injection 10 ML in Sodiu... IV SCH (15:00)
[2019-10-26] MEDS ORDERED: Thiamine 100mg in D5W 55ml IVPB SCH (15:00)
[2019-10-26] MEDS: Morphine Sulfate 2mg/ml Inj(IV/IM USE ONLY) IVP PRN ×2 (15:49→20:04)
[2019-10-26 16:00] VITALS: BP 128/87
--- NOTE | 2019-10-26 18:00 | Consultation ---
DATE OF CONSULTATION: 10/26/2019 INFECTIOUS DISEASE CONSULTATION CONSULTING PHYSICIAN: Georgi Pederson MD. PRIMARY ATTENDING: Jesus Espino MD. REASON FOR CONSULT: Acute pancreatitis and history of pancreatic pseudocyst. HISTORY OF PRESENT ILLNESS: This is a 39-year-old male admitted early this morning because of alcohol intoxication. He complains of abdominal pain, nausea. Had decrease in appetite for 2 days. Also had weakness. PAST MEDICAL HISTORY: Acute pancreatitis and pancreatic pseudocyst. He was hospitalized between 10/10/2019 to 10/12/2019. Had another admission on 09/18/2019 with acute pancreatitis. Has history of GI bleeding and admission in 2018. ALLERGIES: No known drug allergies. MEDICATIONS: Getting morphine sulfate, sodium chloride, Tylenol. SOCIAL HISTORY: Single. Smoker. Uses cocaine and alcohol. REVIEW OF SYSTEMS: No fever. No chills. No coughing. Nausea. No vomiting. Midline abdominal pain. No dysuria. PHYSICAL EXAMINATION: VITAL SIGNS: Temperature 98.5, pulse 88, blood pressure is 119/75. GENERAL APPEARANCE: No acute distress. HEAD AND NECK: [place] conjunctivae. HEART: Normal rate. LUNGS: Clear. ABDOMEN: Soft. Tender. EXTREMITIES: Has no edema. NEUROLOGIC: Awake, alert, oriented x3. LABORATORY AND DIAGNOSTIC DATA: WBC 9.6, hemoglobin 10.5, hematocrit 39.1, platelets 221. Sodium 136, potassium 4.1, chloride 101, bicarbonate 27, BUN 4, creatinine 0.9. Lipase is 1956. Urine toxicology was positive for alcohol abuse, marijuana, and benzodiazepines. UA was negative. IMPRESSION: Acute pancreatitis, seems to be alcoholic. Patient came in with alcohol intoxication. Has history of pancreatic pseudocyst. Has cannabis abuse. Has nicotine dependence. RECOMMENDATION: Observe off antibiotic. We will follow up GI recommendations. At the end of my exam, I thank Dr. Espino for involving me in the care of this patient. Georgi Pederson M.D. DR: YURIY JOB#: [id number] CC: MANNY
[2019-10-26 20:00] VITALS: BP 119/74
[2019-10-27] VITALS: BP 122/72
[2019-10-27] MEDS: Morphine Sulfate 2mg/ml Inj(IV/IM USE ONLY) IVP PRN ×3 (00:50→10:21)
--- NOTE | 2019-10-27 03:45 | History and Physical Report ---
DATE OF ADMISSION: 10/26/2019 HISTORY OF PRESENT ILLNESS: The patient is here for pancreatitis and abdominal pain. The patient complains of abdominal pain for about a week. The patient is very angry, verbally abusive and agitated, easily irritable, and does not want to answer any of my questions. He states that they keep asking me the same questions and all he is asking for is he wants more pain medication. The patient is admitted for abdominal pain and pancreatitis due to alcohol abuse. I cannot get any more history from the patient. PAST MEDICAL HISTORY: Alcohol abuse, history of electrolyte imbalance, and alcohol abuse. PAST SURGICAL HISTORY: Does not want to tell me if he had surgeries are not. ALLERGIES: Apparently no known allergies. MEDICATIONS: None. FAMILY HISTORY: Noncontributory. SOCIAL HISTORY: He has a history of alcohol abuse. Does not want to answer the rest of the questions. The patient is very angry. REVIEW OF SYSTEMS: Unable to obtain. The patient does not answer the questions. PHYSICAL EXAMINATION: VITAL SIGNS: Temperature is 98.5, pulse is 88, blood pressure 190/70. The patient does not allow me to do the rest of the exam, however, the limited exam that I was able to do. HEENT: PERRLA. CHEST: Clear to auscultation. CARDIOVASCULAR: Regular rate and rhythm. ABDOMEN: He has epigastric tenderness. No rebound. Abdomen is soft. EXTREMITIES: No edema. He is able to move his extremities. LABORATORY DATA: WBC of 9.6, hemoglobin of 12.5, and platelets of 321. Sodium 136, potassium 4.1, BUN of 4, creatinine 0.9, glucose of 79. Lipase of 1956. ASSESSMENT/PLAN: Abdominal pain, pancreatitis due to alcohol abuse. I have consulted Dr. Mcdaniel, Dr. Georgi Pederson, Dr. Langford to rule out pseudocyst as well as for management of pancreatitis and pain management per Dr. Langford. We will keep the patient NPO. We will give IV fluids and repeat lipase. Jesus Espino M.D. DR: BROOKLYNN JOB#: [id number] CC:
[2019-10-27 07:25] LABS: ALANINE AMINOTRANSFERASE 38 U/L (12-78); ALBUMIN 2.6 G/DL (3.4-5.0); ALBUMIN/GLOBULIN RATIO 0.6 (1.0-2.7); ALKALINE PHOSPHATASE 163 U/L (46-116); AMYLASE 497 U/L (25-115); ANION GAP 6 mmol/L (5-15); ASPARTATE AMINO TRANSFERASE 50 U/L (15-37); BILIRUBIN,TOTAL 0.7 MG/DL (0.2-1.0); BLOOD UREA NITROGEN 3 mg/dL (7-18); CALCIUM 8.5 MG/DL (8.5-10.1); CARBON DIOXIDE 29 MMOL/L (21-32); CHLORIDE 103 MMOL/L (98-107); CHOLESTEROL 104 MG/DL (< 200); CREATININE 0.8 MG/DL (0.55-1.30); HDL CHOLESTEROL 50 MG/DL (40-60); POTASSIUM 3.8 MMOL/L (3.5-5.1); SODIUM 138 MMOL/L (136-145); TRIGLYCERIDES 40 MG/DL (30-150)
[2019-10-27 07:27] LABS: BASOPHILS % (AUTO) 1.1 % (0.0-2.0); EOSINOPHILS % (AUTO) 2.3 % (0.0-3.0); HEMATOCRIT 36.8 % (42.0-52.0); HEMOGLOBIN 11.4 G/DL (14.2-18.0); LYMPHOCYTES % (AUTO) 27.6 % (20.0-45.0); MEAN CORPUSCULAR VOLUME 85 FL (80-99); MONOCYTES % (AUTO) 10.4 % (1.0-10.0); NEUTROPHILS % (AUTO) 58.6 % (45.0-75.0); PLATELET COUNT 276 K/UL (150-450); RED BLOOD COUNT 4.33 M/UL (4.70-6.10); RED CELL DISTRIBUTION WIDTH 18.3 % (11.6-14.8); WHITE BLOOD COUNT 7.5 K/UL (4.8-10.8)
[2019-10-27 08:00] VITALS: BP 99/64
--- NOTE | 2019-10-27 08:02 | General Progress Note ---
Assessment/Plan Problem List: (1) Pancreatitis ICD Codes: K85.90 - Acute pancreatitis without necrosis or infection, unspecified SNOMED: 43393560 (2) Acute alcoholic intoxication ICD Codes: F10.929 - Alcohol use, unspecified with intoxication, unspecified SNOMED: 33627557, 1161652 (3) Alcohol dependence ICD Codes: F10.20 - Alcohol dependence, uncomplicated SNOMED: 21616091 Assessment/Plan: ivf pain control drug screen>>+ for THC lipid panel repeat labs advance diet Subjective ROS Limited/Unobtainable: Yes Allergies: Coded Allergies: No Known Allergies (Unverified , 10/05/15) Objective Last 24 Hour Vital Signs Date Time Temp Pulse Resp B/P (MAP) Pulse Ox O2 Delivery O2 Flow Rate FiO2 10/27/19 06:35 98.5 10/27/19 00:00 98.5 89 21 122/72 (89) 98 10/26/19 21:45 Room Air 10/26/19 20:00 98.7 91 21 119/74 (89) 98 10/26/19 16:00 98.0 83 21 128/87 (101) 98 10/26/19 12:00 98.5 88 21 119/72 (88) 98 10/26/19 09:00 Room Air Intake and Output 10/26/19 10/27/19 19:00 07:00 Intake Total 480 ml Balance 480 ml Intake Oral 480 ml # Voids 3 # Bowel Movements 1 Laboratory Tests 10/26/19 20:00: Urine Opiates Screen PositiveH, Urine Barbiturates Screen Negative, Phencyclidine (PCP) Screen Negative, Urine Amphetamines Screen Negative, Urine Benzodiazepines Screen PositiveH, Urine Cocaine Screen Negative, Urine Marijuana (THC) Screen PositiveH 10/27/19 05:01: White Blood Count 7.5, Red Blood Count 4.33L, Hemoglobin 11.4L, Hematocrit 36.8L , Mean Corpuscular Volume 85, Mean Corpuscular Hemoglobin 26.2L, Mean Corpuscular Hemoglobin Concent 30.9L, Red Cell Distribution Width 18.3H, Platelet Count 276, Mean Platelet Volume 5.7L, Neutrophils (%) (Auto) 58.6, Lymphocytes (%) (Auto) 27.6, Monocytes (%) (Auto) 10.4H, Eosinophils (%) (Auto) 2.3, Basophils (%) (Auto) 1.1, Sodium Level 138, Potassium Level 3.8, Chloride Level 103, Carbon Dioxide Level 29, Anion Gap 6, Blood Urea Nitrogen 3L, Creatinine 0.8, Estimat Glomerular Filtration Rate > 60, Glucose Level 73L, Calcium Level 8.5, Total Bilirubin 0.7, Aspartate Amino Transf (AST/SGOT) 50H, Alanine Aminotransferase (ALT/SGPT) 38, Alkaline Phosphatase 163H, Total Protein 6.8, Albumin 2.6L, Globulin 4.2, Albumin/Globulin Ratio 0.6L, Triglycerides Level 40, Cholesterol Level 104, LDL Cholesterol 49, HDL Cholesterol 50, Cholesterol/HDL Ratio 2.1L, Amylase Level 497H, Lipase 748H Height (Feet): 5 Height (Inches): 11.00 Weight (Pounds): 169 General Appearance: alert EENT: normal ENT inspection Neck: normal alignment Cardiovascular: normal rate Respiratory/Chest: decreased breath sounds Abdomen: normal bowel sounds, non tender, soft Extremities: non-tender Steven Grey MD Oct 27, 2019 08:02
--- NOTE | 2019-10-27 08:39 | General Progress Note ---
Assessment/Plan Assessment/Plan: (1) Abdominal pain (2) Pancreatitis (3) Alcohol abuse Patient to be continued on Morphine as needed. Dw Dr. Langford and he concurred. Subjective Date patient seen: Oct 27, 2019 Time patient seen: 07:15 - am Allergies: Coded Allergies: No Known Allergies (Unverified , 10/05/15) Subjective REVIEW OF SYSTEMS: Denies rash, fever, chills, sweating, dizziness, drowsiness, blurred vision, sore throat, or change in weight. No shortness of breath or chest pain. No nausea, vomiting, diarrhea, or blood in the stool or urine. No dysuria. SUBJECTIVE: Patient had no relief on the Morphine 1mg and it had been increased to 2mg, now pain better tolerated. No new complaints at this time. He states he is ready to go home. Objective Last 24 Hour Vital Signs Date Time Temp Pulse Resp B/P (MAP) Pulse Ox O2 Delivery O2 Flow Rate FiO2 10/27/19 08:00 98.2 92 22 99/64 (76) 100 10/27/19 06:35 98.5 10/27/19 00:00 98.5 89 21 122/72 (89) 98 10/26/19 21:45 Room Air 10/26/19 20:00 98.7 91 21 119/74 (89) 98 10/26/19 16:00 98.0 83 21 128/87 (101) 98 10/26/19 12:00 98.5 88 21 119/72 (88) 98 10/26/19 09:00 Room Air Intake and Output 10/26/19 10/27/19 19:00 07:00 Intake Total 555 ml Balance 555 ml Intake Oral 480 ml IV Total 75 ml # Voids 3 # Bowel Movements 1 Laboratory Tests 10/26/19 20:00: Urine Opiates Screen PositiveH, Urine Barbiturates Screen Negative, Phencyclidine (PCP) Screen Negative, Urine Amphetamines Screen Negative, Urine Benzodiazepines Screen PositiveH, Urine Cocaine Screen Negative, Urine Marijuana (THC) Screen PositiveH 10/27/19 05:01: White Blood Count 7.5, Red Blood Count 4.33L, Hemoglobin 11.4L, Hematocrit 36.8L , Mean Corpuscular Volume 85, Mean Corpuscular Hemoglobin 26.2L, Mean Corpuscular Hemoglobin Concent 30.9L, Red Cell Distribution Width 18.3H, Platelet Count 276, Mean Platelet Volume 5.7L, Neutrophils (%) (Auto) 58.6, Lymphocytes (%) (Auto) 27.6, Monocytes (%) (Auto) 10.4H, Eosinophils (%) (Auto) 2.3, Basophils (%) (Auto) 1.1, Sodium Level 138, Potassium Level 3.8, Chloride Level 103, Carbon Dioxide Level 29, Anion Gap 6, Blood Urea Nitrogen 3L, Creatinine 0.8, Estimat Glomerular Filtration Rate > 60, Glucose Level 73L, Calcium Level 8.5, Total Bilirubin 0.7, Aspartate Amino Transf (AST/SGOT) 50H, Alanine Aminotransferase (ALT/SGPT) 38, Alkaline Phosphatase 163H, Total Protein 6.8, Albumin 2.6L, Globulin 4.2, Albumin/Globulin Ratio 0.6L, Triglycerides Level 40, Cholesterol Level 104, LDL Cholesterol 49, HDL Cholesterol 50, Cholesterol/HDL Ratio 2.1L, Amylase Level 497H, Lipase 748H Height (Feet): 5 Height (Inches): 11.00 Weight (Pounds): 169 Objective GENERAL: Alert, awake, and oriented. LUNGS: Decreased breath sounds bilaterally. HEART: S1 and S2, regular. ABDOMEN: Tenderness to palpation. EXTREMITIES: No cyanosis. No clubbing. NEURO: No changes. Jairon Larson Oct 27, 2019 08:39
[2019-10-27 12:00] VITALS: BP 106/64
--- NOTE | 2019-10-28 15:32 | Discharge Summary ---
Discharge Summary Discharge Summary _ DATE OF ADMISSION: 10/26/2019 DATE OF DISCHARGE: 10/27/2019 DISCHARGED BY: Dr. Espino REASON FOR ADMISSION: 39 years old male with past medical history of pancreatitis , history of pancreatic pseudocyst, presented to emergency department with alcohol intoxication. Patient reported abdominal discomfort. Upon evaluation laboratory work-up revealed no leukocytosis, hemoglobin 12.5 , hematocrit 39.1 ,platelet count 321. Stable electrolytes and renal parameters. Glucose 79. AST 99 , ALT 51. Lipase 1956. Serum alcohol 212. Urinalysis revealed no evidence of urinary tract infection. Urine toxicology screen was positive for benzodiazepine and marijuana. In emergency department patient started on IV fluids with thiamine and admitted for further management . CONSULTANTS: ID specialist Dr. Georgi Pederson GI specialist Dr. Grey pain specialist Dr. Langford [facility] COURSE: Patient admitted to medical surgical floor. Patient started on the IV fluids with multivitamins and minerals/banana bag . Pain management was addressed as per pain specialist recommendation. LFT and lipase were trending. Lipase trended down from 1956 to 748. AST down to 50. Patient initially was on clear liquid diet and was advanced as tolerated. Symptomatic treatment with antiemetic provided as needed. Patient was counseled on abstinence from alcohol. Patient was able to tolerate diet. Pain was controlled. Due to rapid and unexpected improvement in patient condition, patient was discharged in 1 day. FINAL DIAGNOSES: Acute alcoholic pancreatitis Alcohol intoxication Alcohol dependency Alcohol abuse History of pancreatic pseudocyst Abdominal pain Cannabis abuse DISCHARGE MEDICATIONS: See Medication Reconciliation list. DISCHARGE INSTRUCTIONS: She was discharged home. Patient was counseled on abstinence from alcohol. Patient was counseled to limit cannabis use. Follow-up with a primary care provider in 1 week. I have been assigned to dictate discharge summary for this account. I was not involved in the patient's management. Beulah Holly NP Oct 28, 2019 15:32
== END 2019-10-27 12:33 | disposition home or self-care (01) | DRG 440 ==
LOC: EDBD 21:58 → EMR 22:19 → 4E 10-26 00:49 → EDBEDREQ 10-26 01:19
DX: K85.20 Alcohol induced acute pancreatitis without necrosis or infection (principal); F10.229 Alcohol dependence with intoxication, unspecified; F12.10 Cannabis abuse, uncomplicated; F17.200 Nicotine dependence, unspecified, uncomplicated
CPT/HCPCS: 36415; 80053; 80061; 80307; 81001; 82150; 83690; 85025; 96361; 96365; 99285; G0480; J7030

== ENCOUNTER 2019-11-27 23:27 | Emergency (ER) | payer OTHER ==
[~2019-11-27] VITALS: Ht 172.7 cm; Wt 68.0 kg
[2019-11-27] MEDS ORDERED: HYDROmorphone 1mg/ml Carpuject IVP ONE (23:45)
--- NOTE | 2019-11-27 23:46 | Emergency Room Report ---
History of Present Illness General Chief Complaint: Abdominal Pain Source: Patient Present Illness HPI This a 39-year-old male with a history of alcoholic pancreatitis. He presents with chief complaint abdominal pain. This is a chronic pain for a month or so but worse in the last couple days. Unable to keep anything down. Has nausea and vomiting. Vomiting is now bilious in nature. Worse with eating. Better with rest. Pain is 9 out of 10. Localized to the upper quadrant. No fever chills. No urinary complaint. 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 Patient History Past Medical History: see triage record, old chart reviewed Past Surgical History: none Pertinent Family History: none Social History: Reports: alcohol use; Denies: smoking Immunizations: other Reviewed Nursing Documentation: PMH: Agreed; PSxH: Agreed Nursing Documentation-PMH Hx Cardiac Problems: No Hx Cancer: No Hx Gastrointestinal Problems: Yes - pancreatitis Hx Neurological Problems: Yes Hx Dizziness: Yes Hx Numbness: Yes Hx Weakness: Yes - generalized, shae lower extremities Review of Systems Eye: Denies: eye pain, blurred vision ENT: Denies: ear pain, nose congestion, throat swelling Respiratory: Denies: cough, shortness of breath Cardiovascular: Denies: chest pain, palpitations Gastrointestinal: Reports: abdominal pain, nausea, vomiting; Denies: diarrhea Musculoskeletal: Denies: back pain, joint pain Skin: Denies: rash Neurological: Denies: headache, numbness Endocrine: Denies: increased thirst, increased urine Hematologic/Lymphatic: Denies: easy bruising All Other Systems: negative except mentioned in HPI Physical Exam Vital Signs Date Time Temp Pulse Resp B/P (MAP) Pulse Ox O2 Delivery O2 Flow Rate FiO2 11/27/19 23:34 98.4 107 20 98/59 (72) 97 Room Air Vitals with tachycardia Sp02 EP Interpretation: reviewed, normal General Appearance: well appearing, no apparent distress, alert, thin Head: normocephalic, atraumatic Eyes: bilateral eye PERRL, bilateral eye EOMI ENT: hearing grossly normal, normal pharynx Neck: full range of motion, supple, no meningismus Respiratory: chest non-tender, lungs clear, normal breath sounds Cardiovascular #1: regular rate, rhythm, no murmur Gastrointestinal: normal bowel sounds, no mass, no organomegaly, no bruit, non- distended, tenderness - Upper quadrants, mostly left upper quadrant Musculoskeletal: back normal, normal range of motion, gait/station normal Psychiatric: mood/affect normal Medical Decision Making Diagnostic Impression: Primary Impression: Alcohol dependence Qualified Codes: F10.20 - Alcohol dependence, uncomplicated Additional Impression: Abdominal pain Qualified Codes: R10.10 - Upper abdominal pain, unspecified ER Course Presents with abdominal pain. No evidence of pancreatitis. This is similar symptom in the past. No evidence of an acute abdomen. Pain is well controlled now. Will discharge home. Last Vital Signs Date Time Temp Pulse Resp B/P (MAP) Pulse Ox O2 Delivery O2 Flow Rate FiO2 11/27/19 23:34 98.4 107 20 98/59 (72) 97 Room Air Status: improved Disposition: HOME, SELF-CARE Condition: Stable Scripts Hydrocodone/Acetaminophen 5-325* (HYDROCODONE/ACETAMINOPHEN 5-325*) 1 Each Tablet 1 TAB ORAL Q6H PRN for For Pain, #10 TAB 0 Refills Prov: Gareth Knight MD 11/28/19 Ondansetron Odt* (ZOFRAN ODT*) 4 Mg Tab.rapdis 4 MG BC EVERY 6 HOURS PRN for Nausea & Vomiting, #10 TAB 0 Refills Prov: Gareth Knight MD 11/28/19 Patient Instructions: Abdominal Pain, Adult Additional Instructions: Abstain from alcohol. Go to rehab. Follow-up with your doctor in 7 days. Return if worse. Gareth Knight MD Nov 27, 2019 23:46
[2019-11-28 00:06] LABS: BASOPHILS % (AUTO) 1.7 % (0.0-2.0); EOSINOPHILS % (AUTO) 0.8 % (0.0-3.0); HEMATOCRIT 36.1 % (42.0-52.0); HEMOGLOBIN 11.8 G/DL (14.2-18.0); LYMPHOCYTES % (AUTO) 47.2 % (20.0-45.0); MEAN CORPUSCULAR VOLUME 84 FL (80-99); MONOCYTES % (AUTO) 10.1 % (1.0-10.0); NEUTROPHILS % (AUTO) 40.1 % (45.0-75.0); PLATELET COUNT 235 K/UL (150-450); RED BLOOD COUNT 4.27 M/UL (4.70-6.10); RED CELL DISTRIBUTION WIDTH 17.1 % (11.6-14.8); WHITE BLOOD COUNT 6.9 K/UL (4.8-10.8)
[2019-11-28 00:26] LABS: ANION GAP 13 mmol/L (5-15); BLOOD UREA NITROGEN 7 mg/dL (7-18); CALCIUM 8.8 MG/DL (8.5-10.1); CARBON DIOXIDE 24 MMOL/L (21-32); CHLORIDE 99 MMOL/L (98-107); CREATININE 0.7 MG/DL (0.55-1.30); POTASSIUM 3.6 MMOL/L (3.5-5.1); SODIUM 136 MMOL/L (136-145)
[2019-11-28 00:30] LABS: ALANINE AMINOTRANSFERASE 37 U/L (12-78); ALBUMIN 2.8 G/DL (3.4-5.0); ALBUMIN/GLOBULIN RATIO 0.6 (1.0-2.7); ALKALINE PHOSPHATASE 158 U/L (46-116); ASPARTATE AMINO TRANSFERASE 63 U/L (15-37); BILIRUBIN,TOTAL 0.3 MG/DL (0.2-1.0)
[2019-11-28 01:00] VITALS: BP 111/64
[2019-11-28] MEDS ORDERED: HYDROCODON-ACE1 EA15 ORAL (01:06)
[2019-11-28] MEDS ORDERED: ONDANSETRON ODT4 MG BC (01:06)
[2019-11-28] MEDS ORDERED: Morphine Sulfate 4mg/ml Inj (IV USE ONLY) IVP ONE (01:15)
[2019-11-28 01:20] VITALS: BP 111/64
[2019-11-28 01:39] LABS: APPEARANCE,URINE CLEAR; BILIRUBIN, URINE NEGATIVE (NEGATIVE); COLOR,URINE PALE YELLOW; GLUCOSE, URINE (UA) NEGATIVE (NEGATIVE); KETONES,URINE NEGATIVE (NEGATIVE); LEUKOCYTE ESTERASE ,URINE NEGATIVE (NEGATIVE); NITRITE,URINE NEGATIVE (NEGATIVE); PH,URINE 6 (4.5-8.0); PROTEIN,URINE NEGATIVE (NEGATIVE); UROBILINOGEN,URINE NORMAL MG/DL (0.0-1.0)
== END 2019-11-28 01:20 | disposition home or self-care (01) ==
LOC: EMR 23:49
DX: R10.10 Upper abdominal pain, unspecified (principal); F10.20 Alcohol dependence, uncomplicated
CPT/HCPCS: 36415; 80053; 81003; 83690; 85025; 96361; 96374; 96375; 96376; 99284; J1170; J2270; J2405; J7030

== ENCOUNTER 2020-04-09 21:44 | Emergency (ER) | payer OTHER ==
[~2020-04-09] VITALS: Ht 172.7 cm; Wt 59.0 kg
[~2020-04-09 21:44] MED LIST changes: +ONDANSETRON ODT4 MG BC
[2020-04-09 21:50] VITALS: BP 132/84
[2020-04-09] MEDS ORDERED: GABAPENTIN400 MG ORAL (21:50)
--- NOTE | 2020-04-09 21:50 | NUR ---
ED Nurse Note: pt presents to ED c/o generalized pain diffusely over entire torse. pt states that he had a ground level slip and fall last night, landed on his bottom and now has pain in his back. unrelated to this pt also states that he has abd pain and has been vomiting. pt states that he drinks alcohol and that may contribute to the pain. pt is tearful upon exam and his story is hard to follow
--- NOTE | 2020-04-09 22:00 | NUR ---
ED Nurse Note: pt became aggravated that his demands were not being met, he is stable and ready for discharge but left without paperwork. pt ambulated with steady gait, taking all belongings with him
[2020-04-09 22:04] VITALS: BP 132/84
--- NOTE | 2020-04-09 22:04 | Emergency Room Report ---
History of Present Illness General Chief Complaint: Pain Source: Patient Present Illness HPI This is a 39-year-old male with no significant past medical history. He presents with chief complaint of generalized body pain and weakness. He said this been ongoing for years but now he is tired of it. He said he can eat and cannot walk. Denies any fever chills but no nausea no vomiting. He told triage nurse that he fell yesterday but could not tell me that. He said he has pain is 10 out of 10. No suicidal thoughts homicidal thought. Nothing made it better. Any movement made it worse. Allergies: Coded Allergies: No Known Allergies (Unverified , 10/05/15) COVID-19 Screening Contact w/high risk pt: No Recent Travel to affected area: No Experienced COVID-19 symptoms?: No COVID-19 Testing performed CLINICAL DOCUMENTATION SPECIALIST: Yes - february 2020 COVID-19 Screening: Negative COVID-19 COVID-19 Testing Source: [facility] [place] Patient History Past Medical History: see triage record, old chart reviewed Past Surgical History: other Pertinent Family History: none Social History: Reports: alcohol use Immunizations: other Reviewed Nursing Documentation: PMH: Agreed; PSxH: Agreed Nursing Documentation-PMH Past Medical History: No History, Except For Hx Cardiac Problems: No Hx Cancer: No Hx Gastrointestinal Problems: Yes - pancreatitis Hx Neurological Problems: Yes Hx Dizziness: Yes Hx Numbness: Yes Hx Weakness: Yes - generalized, shae lower extremities Review of Systems Constitutional: Reports: malaise Eye: Denies: eye pain, blurred vision ENT: Denies: ear pain, nose congestion, throat swelling Respiratory: Denies: cough, shortness of breath Cardiovascular: Denies: chest pain, palpitations Gastrointestinal: Denies: abdominal pain, diarrhea, nausea, vomiting Musculoskeletal: Denies: back pain, joint pain Skin: Denies: rash Neurological: Denies: headache, numbness Endocrine: Denies: increased thirst, increased urine Hematologic/Lymphatic: Denies: easy bruising All Other Systems: negative except mentioned in HPI Physical Exam Vital Signs Date Time Temp Pulse Resp B/P (MAP) Pulse Ox O2 Delivery O2 Flow Rate FiO2 04/09/20 21:47 98.2 93 18 132/84 (100) 99 Room Air Vitals normal Sp02 EP Interpretation: reviewed, normal General Appearance: well appearing, no apparent distress, alert Head: normocephalic, atraumatic Eyes: bilateral eye PERRL, bilateral eye EOMI ENT: hearing grossly normal, normal pharynx Neck: full range of motion, supple, no meningismus Respiratory: chest non-tender, lungs clear, normal breath sounds Cardiovascular #1: regular rate, rhythm, no murmur Gastrointestinal: normal bowel sounds, non tender, no mass, no organomegaly, no bruit, non-distended Musculoskeletal: back normal, normal range of motion, gait/station normal Psychiatric: mood/affect normal Medical Decision Making Diagnostic Impression: Primary Impression: Episode of generalized weakness Additional Impression: Pain ER Course This patient presents with generalized weakness and chronic pain. This is a chronic problem been going on for years according to the patient. I see no need for any work-up. He has been here several times in the past for chronic pain and alcohol dependency and intoxication. When I told him that this is a chronic issue that does not need emergent work-up, he got up and walked out without any difficulty though he said he cannot walk. Last Vital Signs Date Time Temp Pulse Resp B/P (MAP) Pulse Ox O2 Delivery O2 Flow Rate FiO2 04/09/20 21:47 98.2 93 18 132/84 (100) 99 Room Air Status: unchanged Disposition: HOME, SELF-CARE Condition: Stable Gareth Knight MD Apr 09, 2020 22:04
== END 2020-04-09 22:15 | disposition home or self-care (01) ==
LOC: EMR 22:13
DX: R53.1 Weakness (principal); G89.29 Other chronic pain
CPT/HCPCS: 99281

== ENCOUNTER 2020-05-21 10:47 | Inpatient (IN) | payer OTHER ==
[~2020-05-21] VITALS: Ht 172.7 cm; Wt 45.4 kg
[~2020-05-21 10:47] MED LIST changes: +GABAPENTIN400 MG ORAL
[2020-05-21] MEDS ORDERED: fentaNYL 100 mcg/2 mL IV ONE ×2 (11:45→14:15)
--- NOTE | 2020-05-21 11:54 | Diagnostic Imaging Report ---
EXAM: XR Chest, 1 View CLINICAL HISTORY: ABD PAIN TECHNIQUE: Frontal view of the chest. COMPARISON: Chest radiograph on 01/23/2019 FINDINGS: Hardware: None. Lungs/pleura: Normal. No focal consolidation. No pleural effusion or pneumothorax. Heart/mediastinum: Normal. No cardiomegaly. Soft tissues: Unremarkable. Bones: No acute fracture. Upper abdomen: Normal. IMPRESSION: No acute disease identified.
[2020-05-21] MEDS ORDERED: METFORMIN HCL500 M1 ORAL (12:40)
--- NOTE | 2020-05-21 12:50 | Emergency Room Report ---
History of Present Illness General Chief Complaint: Abdominal Pain Source: Patient (Anu Qiu M.D.) Present Illness HPI Patient is a 39-year-old male presents to the ER complaining of abdominal pain for 1 week. He complains of associated nausea and nonbilious nonbloody vomitus. He also complains of nonbloody diarrhea. He complains of generalized weakness. He denies any fever or chills. He denies any chest pain, shortness of breath or cough. He denies any sick contacts at home. 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 COVID-19 Screening: Negative COVID-19 COVID-19 Testing Source: At doctor's office (Anu Qiu M.D.) Patient History Social History: Reports: drug use - Marijuana Reviewed Nursing Documentation: PMH: Agreed; PSxH: Agreed (Anu Qiu M.D.) Nursing Documentation-PMH Hx Cardiac Problems: No Hx Cancer: No Hx Gastrointestinal Problems: Yes - pancreatitis Hx Neurological Problems: Yes Hx Dizziness: Yes Hx Numbness: Yes Hx Weakness: Yes - generalized, shae lower extremities (Anu Qiu M.D.) Review of Systems All Other Systems: negative except mentioned in HPI (Anu Qiu M.D.) Physical Exam Vital Signs Date Time Temp Pulse Resp B/P (MAP) Pulse Ox O2 Delivery O2 Flow Rate FiO2 05/21/20 11:28 97.9 109 16 131/98 (109) 97 Room Air Sp02 EP Interpretation: reviewed, normal General Appearance: alert, GCS 15, non-toxic, mild distress, thin Head: normocephalic, atraumatic Eyes: bilateral eye normal inspection, bilateral eye PERRL ENT: dry mucus membranes Neck: full range of motion, no meningismus Respiratory: lungs clear, normal breath sounds, no accessory muscle use Cardiovascular #1: tachycardia Gastrointestinal: other - Diffuse abdominal tenderness maximal in the periumbilical region with no guarding or rebound Rectal: deferred Genitourinary: no CVA tenderness Musculoskeletal: normal range of motion Neurologic: drafter plumbing III-XII nml as tested, oriented x3 Psychiatric: no suicidal/homicidal ideation Skin: no rash Lymphatic: no adenopathy (Anu Qiu M.D.) Medical Decision Making Diagnostic Impression: Primary Impression: Pancreatitis Additional Impressions: Hyponatremia Pancreatic pseudocyst ER Course Patient presents with abdominal pain. Patient's lipase is elevated and patient is hyponatremic with sodium of 128. Patient given IV fluids as well as pain medications. Patient pending CT abdomen pelvis to assess for pancreatic pseudocyst. Patient will require admission patient signed out to oncoming physician at 1400 Laboratory Tests Test 05/21/20 12:05 White Blood Count 8.1 K/UL (4.8-10.8) Red Blood Count 5.19 M/UL (4.70-6.10) Hemoglobin 14.7 G/DL (14.2-18.0) Hematocrit 47.1 % (42.0-52.0) Mean Corpuscular Volume 91 FL (80-99) Mean Corpuscular Hemoglobin 28.3 PG (27.0-31.0) Mean Corpuscular Hemoglobin Concent 31.2 G/DL (32.0-36.0) L Red Cell Distribution Width 15.9 % (11.6-14.8) H Platelet Count 303 K/UL (150-450) Mean Platelet Volume 6.1 FL (6.5-10.1) L Neutrophils (%) (Auto) 75.5 % (45.0-75.0) H Lymphocytes (%) (Auto) 15.9 % (20.0-45.0) L Monocytes (%) (Auto) 7.4 % (1.0-10.0) Eosinophils (%) (Auto) 0.1 % (0.0-3.0) Basophils (%) (Auto) 1.2 % (0.0-2.0) Prothrombin Time 13.1 SEC (9.30-11.50) H Prothrombin Time INR 1.2 (0.9-1.1) H Activated Partial Thromboplast Time 28 SEC (23-33) Sodium Level 128 MMOL/L (136-145) L Potassium Level 4.2 MMOL/L (3.5-5.1) Chloride Level 91 MMOL/L (98-107) L Carbon Dioxide Level 30 MMOL/L (21-32) Anion Gap 7 mmol/L (5-15) Blood Urea Nitrogen 4 mg/dL (7-18) L Creatinine 0.8 MG/DL (0.55-1.30) Estimated Glomerular Filtration Rate > 60 mL/min (>60) Glucose Level 122 MG/DL (74-106) H Lactic Acid Level 2.50 mmol/L (0.4-2.0) H Calcium Level 9.2 MG/DL (8.5-10.1) Magnesium Level 1.8 MG/DL (1.8-2.4) Total Bilirubin 0.3 MG/DL (0.2-1.0) Aspartate Amino Transferase (AST) 48 U/L (15-37) H Alanine Aminotransferase (ALT) 30 U/L (12-78) Alkaline Phosphatase 241 U/L (46-116) H Total Protein 8.0 G/DL (6.4-8.2) Albumin 2.7 G/DL (3.4-5.0) L Globulin 5.3 g/dL Albumin/Globulin Ratio 0.5 (1.0-2.7) L Lipase 1863 U/L (73-393) H (Anu Qiu M.D.) ER Course Assumed care of the patient from the previous provider at approximately 1400. Please refer to initial note for full history and physical exam. Briefly, 39-year-old male history of alcohol abuse pancreatitis presented for abdominal pain. Lipase elevated. Other labs within normal limits. CT was pending at time of signout. Shows small pancreatic pseudocyst and peripancreatic fluid consistent with acute pancreatitis. Patient remained stable. Will require admission. (Mike Vinson MD) EKG Diagnostic Results Troponin ordered: No - Order for abdominal pain EKG Time: 13:05 EP Interpretation: Anu Qiu MD Rate: normal - 70 bpm Rhythm: NSR ST Segments: no acute changes ASA given to the pt in ED: No (Anu Qiu M.D.) Chest X-Ray Diagnostic Results Chest X-Ray Diagnostic Results : Chest X-Ray Ordered: Yes # of Views/Limited/Complete: 1 View Indication: Other - Abdominal pain EP Interpretation: Yes Interpretation: no consolidation, no effusion, no pneumothorax, no acute cardiopulmonary disease Impression: No acute disease Electronically Signed by: Anu Qiu MD (Anu Qiu M.D.) CT/MRI/US Diagnostic Results CT/MRI/US Diagnostic Results : Impression Final Report EXAM: CT Abdomen and Pelvis With Intravenous Contrast CLINICAL HISTORY: PAIN TECHNIQUE: Axial computed tomographyimages of the abdomen and pelviswith intravenous contrast. CTDI is 2.7 mGyand DLP is 142.1 mGy-cm. One or more of the following dose reduction techniqueswere used: automated exposure control, adjustment of the mAand/or kVaccording to patient size, use of iterative reconstruction technique. COMPARISON: CT abdomen/pelvis on 09/17/2019 FINDINGS: Lung bases:Unremarkable. No mass. No consolidation. ABDOMEN: Liver: Probable hepatic steatosis. Small hypodensities in the liver are too small to definitively characterize. Gallbladder and bile ducts:Unremarkable. No calcified stones. No ductal dilation. Pancreas: Peripancreatic fluid is concerning for acute pancreatitis. Probable newsmall pseudocyst along the pancreatic tail, measuring approximately2.1 x 2.4 x 2.5 cm. Additional grosslysimilar cystic structure in the region of the pancreatic head measures approximately2.0 x 1.9 x 2.3 cmwhich may represent another pseudocyst versus cystic neoplasm. No ductal dilation. Spleen:Unremarkable. No splenomegaly. Adrenals:Unremarkable. No mass. Kidneys and ureters: Mild excreting contrast in the renal collecting systems. No hydronephrosis. Stomach and bowel: Prominence of the schafer of the sigmoid colon and descending colon maybe secondaryto underdistention. Colitis is not excluded. Prominence of the wall of the duodenummaybe secondaryto under distention versus reactive inflammatorychanges versus duodenitis. Prominence of the wall of the stomach maybe secondaryto under distention versus reactive inflammatorychange versus gastritis. Diverticulosiswithout definite evidence of diverticulitis. PELVIS: Appendix:No findings to suggest acute appendicitis. Bladder: Mild prominence of the bladder wall is nonspecific. Please correlate with urinalysis to evaluate for cystitis. Reproductive:Unremarkable as visualized. ABDOMEN and PELVIS: Intraperitoneal space: Small amount of free fluid in the pelvis. No free air. Bones/joints:No acute fracture. No dislocation. Soft tissues:Unremarkable. Vasculature: Phleboliths in the pelvis. No abdominal aortic aneurysm. Lymph nodes:Unremarkable. No enlarged lymph nodes. IMPRESSION: 1. Peripancreatic fluid is concerning for acute pancreatitis. Probable newsmall pseudocyst along the pancreatic tail, measuring approximately2.1 x 2.4 x 2.5 cm. Additional grosslysimilar cystic structure in the region of the pancreatic head measures approximately2.0 x 1.9 x 2.3 cmwhich mayrepresent another pseudocyst versus cystic neoplasm. 2. Prominence of the schafer of the sigmoid colon and descending colon maybe secondaryto underdistention. Colitis is not excluded. 3. Small amount of free fluid in the pelvis. 4. Mild prominence of the bladder wall is nonspecific. Please correlate with urinalysis to evaluate for cystitis. 5. Prominence of the wall of the duodenummaybe secondaryto under distention versus reactive inflammatorychanges versus duodenitis. 6. Prominence of the wall of the stomach maybe secondaryto under distention versus reactive inflammatorychange versus gastritis. Radiologist: Nelson Torres M.D. Electronically Signed: 05/21/20 14:30 Study ready at 14:12 and initial results transmitted at 14:30 (Mike Vinson MD) Last Vital Signs Date Time Temp Pulse Resp B/P (MAP) Pulse Ox O2 Delivery O2 Flow Rate FiO2 05/21/20 11:28 97.9 109 16 131/98 (109) 97 Room Air (Anu Qiu M.D.) Disposition: ADMITTED INPATIENT Condition: Stable Signed Out To: Dr. Vinson at 1400 (Anu Qiu M.D.) Additional Instructions: Please note that this report is being documented using OPENLANE technology. This can lead to erroneous entry secondary to incorrect interpretation by the dictating instrument. Anu Qiu M.D. May 21, 2020 12:50 Mike Vinson MD May 21, 2020 14:44
[2020-05-21 12:52] LABS: BASOPHILS % (AUTO) 1.2 % (0.0-2.0); EOSINOPHILS % (AUTO) 0.1 % (0.0-3.0); HEMATOCRIT 47.1 % (42.0-52.0); HEMOGLOBIN 14.7 G/DL (14.2-18.0); LYMPHOCYTES % (AUTO) 15.9 % (20.0-45.0); MEAN CORPUSCULAR VOLUME 91 FL (80-99); MONOCYTES % (AUTO) 7.4 % (1.0-10.0); NEUTROPHILS % (AUTO) 75.5 % (45.0-75.0); PLATELET COUNT 303 K/UL (150-450); RED BLOOD COUNT 5.19 M/UL (4.70-6.10); RED CELL DISTRIBUTION WIDTH 15.9 % (11.6-14.8); WHITE BLOOD COUNT 8.1 K/UL (4.8-10.8)
[2020-05-21 12:59] LABS: INR 1.2 (0.9-1.1)
[2020-05-21 13:03] LABS: ANION GAP 7 mmol/L (5-15); BLOOD UREA NITROGEN 4 mg/dL (7-18); CALCIUM 9.2 MG/DL (8.5-10.1); CARBON DIOXIDE 30 MMOL/L (21-32); CHLORIDE 91 MMOL/L (98-107); CREATININE 0.8 MG/DL (0.55-1.30); POTASSIUM 4.2 MMOL/L (3.5-5.1); SODIUM 128 MMOL/L (136-145)
[2020-05-21] MEDS ORDERED: Omnipaque-300 100ml vial INJ PRN (13:15)
[2020-05-21 13:17] LABS: ALANINE AMINOTRANSFERASE 30 U/L (12-78); ALBUMIN 2.7 G/DL (3.4-5.0); ALBUMIN/GLOBULIN RATIO 0.5 (1.0-2.7); ALKALINE PHOSPHATASE 241 U/L (46-116); ASPARTATE AMINO TRANSFERASE 48 U/L (15-37); BILIRUBIN,TOTAL 0.3 MG/DL (0.2-1.0)
--- NOTE | 2020-05-21 13:23 | NUR ---
Patient presented to the ER with c/o stomach pains, diarrhea, back ache, dizziness x 3 days. No adverse medical history. AAOX4. NKA. Reports that he smokes marijauna and last smoked yesterday. Last BM 05/20/20
[2020-05-21 14:23] VITALS: BP 149/93
[2020-05-21 14:30] LABS: APPEARANCE,URINE CLEAR; BILIRUBIN, URINE NEGATIVE (NEGATIVE); COLOR,URINE PALE YELLOW; GLUCOSE, URINE (UA) NEGATIVE (NEGATIVE); KETONES,URINE NEGATIVE (NEGATIVE); LEUKOCYTE ESTERASE ,URINE NEGATIVE (NEGATIVE); NITRITE,URINE NEGATIVE (NEGATIVE); PH,URINE 6 (4.5-8.0); PROTEIN,URINE NEGATIVE (NEGATIVE); UROBILINOGEN,URINE NORMAL MG/DL (0.0-1.0)
--- NOTE | 2020-05-21 14:31 | Diagnostic Imaging Report ---
EXAM: CT Abdomen and Pelvis With Intravenous Contrast CLINICAL HISTORY: PAIN TECHNIQUE: Axial computed tomography images of the abdomen and pelvis with intravenous contrast. CTDI is 2.7 mGy and DLP is 142.1 mGy-cm. One or more of the following dose reduction techniques were used: automated exposure control, adjustment of the mA and/or kV according to patient size, use of iterative reconstruction technique. COMPARISON: CT abdomen/pelvis on 09/17/2019 FINDINGS: Lung bases: Unremarkable. No mass. No consolidation. ABDOMEN: Liver: Probable hepatic steatosis. Small hypodensities in the liver are too small to definitively characterize. Gallbladder and bile ducts: Unremarkable. No calcified stones. No ductal dilation. Pancreas: Peripancreatic fluid is concerning for acute pancreatitis. Probable new small pseudocyst along the pancreatic tail, measuring approximately 2.1 x 2.4 x 2.5 cm. Additional grossly similar cystic structure in the region of the pancreatic head measures approximately 2.0 x 1.9 x 2.3 cm which may represent another pseudocyst versus cystic neoplasm. No ductal dilation. Spleen: Unremarkable. No splenomegaly. Adrenals: Unremarkable. No mass. Kidneys and ureters: Mild excreting contrast in the renal collecting systems. No hydronephrosis. Stomach and bowel: Prominence of the schafer of the sigmoid colon and descending colon may be secondary to underdistention. Colitis is not excluded. Prominence of the wall of the duodenum may be secondary to under distention versus reactive inflammatory changes versus duodenitis. Prominence of the wall of the stomach may be secondary to under distention versus reactive inflammatory change versus gastritis. Diverticulosis without definite evidence of diverticulitis. PELVIS: Appendix: No findings to suggest acute appendicitis. Bladder: Mild prominence of the bladder wall is nonspecific. Please correlate with urinalysis to evaluate for cystitis. Reproductive: Unremarkable as visualized. ABDOMEN and PELVIS: Intraperitoneal space: Small amount of free fluid in the pelvis. No free air. Bones/joints: No acute fracture. No dislocation. Soft tissues: Unremarkable. Vasculature: Phleboliths in the pelvis. No abdominal aortic aneurysm. Lymph nodes: Unremarkable. No enlarged lymph nodes. IMPRESSION: 1. Peripancreatic fluid is concerning for acute pancreatitis. Probable new small pseudocyst along the pancreatic tail, measuring approximately 2. 1 x 2.4 x 2.5 cm. Additional grossly similar cystic structure in the region of the pancreatic head measures approximately 2.0 x 1.9 x 2.3 cm which may represent another pseudocyst versus cystic neoplasm. 2. Prominence of the schafer of the sigmoid colon and descending colon may be secondary to underdistention. Colitis is not excluded. 3. Small amount of free fluid in the pelvis. 4. Mild prominence of the bladder wall is nonspecific. Please correlate with urinalysis to evaluate for cystitis. 5. Prominence of the wall of the duodenum may be secondary to under distention versus reactive inflammatory changes versus duodenitis. 6. Prominence of the wall of the stomach may be secondary to under distention versus reactive inflammatory change versus gastritis.
--- NOTE | 2020-05-21 16:18 | NUR ---
NURSE NOTES: Patient arrived safely from ER to 4E. Patient is awake and alert, reporting 9/10 abdominal pain. Right AC 20g is intact and saline locked. Patient oriented to room belongings list verified and signed. Bed is low and locked, side rails up x2, call light is within reach.
[2020-05-21 16:30] VITALS: BP 150/74
--- NOTE | 2020-05-21 16:45 | NUR ---
NURSE NOTES: Admission orders received from Dr. Robison, read back and carried out
[2020-05-21] MEDS ORDERED: Zolpidem 5mg tab ORAL PRN (17:15)
[2020-05-21] MEDS ORDERED: LORazepam Inj 2mg/ml 1ml IV PRN (17:15)
[2020-05-21] MEDS: Morphine Sulfate 4mg/ml Inj (IV USE ONLY) IVP PRN ×2 (17:48→23:54)
[2020-05-21] MEDS ORDERED: FOLIC ACID IV ONE (18:00)
[2020-05-21] MEDS ORDERED: MAGNESIUM SULFATE IV ONE (18:00)
[2020-05-21] MEDS ORDERED: [UNRECOGNIZED DRUG - OTHER] IV ONE (18:00)
[2020-05-21] MEDS ORDERED: THIAMINE HCL IV ONE (18:00)
[2020-05-21] MEDS: HYDROmorphone 1mg/ml Carpuject SUBQ PRN (18:58)
--- NOTE | 2020-05-21 19:20 | NUR ---
NURSE HAND-OFF: Important Events on Shift:[admission to 4E] Patient Status: stable Diet: npo Pending Orders: Pending Results/Labs: Pending MD notification: Latest Vital Signs: Temperature 97.9 , Pulse 78 , B/P 150 /74 , Respiratory Rate 20 , O2 SAT 98 , Room Air, O2 Flow Rate . Vital Sign Comment: stable Latest Carey Fall Score: 35 Fall Risk: Medium Risk Safety Measures: Call light Within Reach, Bed Alarm Zone 2, Side Rails Side Rails x2, Bed position Low and Locked. Fall Precautions: Patient Fall Education Report given to Shy MAYORGA.
[2020-05-21 19:48] LABS: APPEARANCE,URINE CLEAR; BILIRUBIN, URINE NEGATIVE (NEGATIVE); COLOR,URINE PALE YELLOW; GLUCOSE, URINE (UA) NEGATIVE (NEGATIVE); KETONES,URINE NEGATIVE (NEGATIVE); LEUKOCYTE ESTERASE ,URINE NEGATIVE (NEGATIVE); NITRITE,URINE NEGATIVE (NEGATIVE); PH,URINE 6.5 (4.5-8.0); PROTEIN,URINE NEGATIVE (NEGATIVE); UROBILINOGEN,URINE NORMAL MG/DL (0.0-1.0)
[2020-05-21 19:54] VITALS: BP 129/92
--- NOTE | 2020-05-21 20:06 | NUR ---
NURSE NOTES: Received patient awake, alert, verbal, comfortably resting in bed, no complaints.
[2020-05-21 23:46] VITALS: BP 126/91
[2020-05-22] MEDS ORDERED: D5NS 1,000 ML IV SCH (02:00)
[2020-05-22 04:00] VITALS: BP 126/90
[2020-05-22] MEDS: HYDROmorphone 1mg/ml Carpuject SUBQ PRN (04:59)
--- NOTE | 2020-05-22 06:30 | NUR ---
NURSE HAND-OFF: Important Events on Shift:[]Pain medication Patient Status: [] Diet: []NPO Pending Orders: [] Pending Results/Labs:[] Pending MD notification:[] Latest Vital Signs: Temperature 97.9 , Pulse 89 , B/P 126 /90 , Respiratory Rate 18 , O2 SAT 100 , Room Air, O2 Flow Rate . Vital Sign Comment: [] Latest Carey Fall Score: 35 Fall Risk: Medium Risk Safety Measures: Call light Within Reach, Bed Alarm Zone 2, Side Rails Side Rails x2, Bed position Low and Locked. Fall Precautions: Yellow Socks Report given to [].
--- NOTE | 2020-05-22 07:05 | NUR ---
NURSE NOTES: Handoff received from Shy MAYORGA. Patient is awake and alert, no signs of acute distress noted, reporting 8/10 abd pain. Breathing is even abd unlabored on room air. Right AC 20g is intact and running IVf as ordered. Bed is low and locked, side rails up x2, call light is within reach.
--- NOTE | 2020-05-22 07:26 | General Progress Note ---
Subjective ROS Limited/Unobtainable: Yes Allergies: Coded Allergies: No Known Allergies (Unverified , 10/05/15) Subjective abd pain Objective Last 24 Hour Vital Signs Date Time Temp Pulse Resp B/P (MAP) Pulse Ox O2 Delivery O2 Flow Rate FiO2 05/22/20 05:30 97.9 05/22/20 04:00 98.8 89 18 126/90 (102) 100 05/22/20 00:30 97.9 05/21/20 23:46 97.9 91 18 126/91 (103) 100 05/21/20 20:16 Room Air 05/21/20 19:54 98.7 93 20 129/92 (104) 100 05/21/20 19:28 97.9 05/21/20 18:18 97.9 05/21/20 16:30 97.6 78 20 150/74 (99) 98 05/21/20 16:28 Room Air 05/21/20 14:23 79 18 149/93 100 Room Air 05/21/20 13:18 Room Air 05/21/20 11:28 97.9 109 16 131/98 (109) 97 Room Air Intake and Output 05/21/20 05/22/20 19:00 07:00 Intake Total 1375 ml Balance 1375 ml Intake IV Total 1375 ml # Voids 3 Laboratory Tests 05/21/20 12:05: White Blood Count 8.1, Red Blood Count 5.19, Hemoglobin 14.7, Hematocrit 47.1, Mean Corpuscular Volume 91, Mean Corpuscular Hemoglobin 28.3, Mean Corpuscular Hemoglobin Concent 31.2L, Red Cell Distribution Width 15.9H, Platelet Count 303, Mean Platelet Volume 6.1L, Neutrophils (%) (Auto) 75.5H, Lymphocytes (%) (Auto) 15.9L, Monocytes (%) (Auto) 7.4, Eosinophils (%) (Auto) 0.1, Basophils (%) (Auto) 1.2, Prothrombin Time 13.1H, Prothromb Time International Ratio 1.2H, Activated Partial Thromboplast Time 28, Sodium Level 128L, Potassium Level 4.2, Chloride Level 91L, Carbon Dioxide Level 30, Anion Gap 7, Blood Urea Nitrogen 4L , Creatinine 0.8, Estimat Glomerular Filtration Rate > 60, Glucose Level 122H, L actic Acid Level 2.50H, Calcium Level 9.2, Magnesium Level 1.8, Total Bilirubin 0.3, Aspartate Amino Transf (AST/SGOT) 48H, Alanine Aminotransferase (ALT/SGPT) 30, Alkaline Phosphatase 241H, Total Protein 8.0, Albumin 2.7L, Globulin 5.3, Albumin/Globulin Ratio 0.5L, Lipase 1863H 05/21/20 14:16: Urine Color Pale yellow, Urine Appearance Clear, Urine pH 6, Urine Specific [place] 1.020, Urine Protein Negative, Urine Glucose (UA) Negative, Urine Ketones Negative, Urine Blood Negative, Urine Nitrite Negative, Urine Bilirubin Negative, Urine Urobilinogen Normal, Urine Leukocyte Esterase Negative, Urine Opiates Screen Negative, Urine Barbiturates Screen Negative, Phencyclidine (PCP) Screen Negative, Urine Amphetamines Screen Negative, Urine Benzodiazepines Screen Negative, Urine Cocaine Screen Negative, Urine Marijuana (THC) Screen PositiveH 05/21/20 16:00: Lactic Acid Level 2.20 05/21/20 19:30: Urine Color Pale yellow, Urine Appearance Clear, Urine pH 6.5, Urine Specific [place] 1.030, Urine Protein Negative, Urine Glucose (UA) Negative, Urine Ketones Negative, Urine Blood Negative, Urine Nitrite Negative, Urine Bilirubin Negative, Urine Urobilinogen Normal, Urine Leukocyte Esterase Negative, Urine RBC 0, Urine WBC 0-2, Urine Squamous Epithelial Cells Occasional, Urine Bacteria Occasional Height (Feet): 5 Height (Inches): 8.00 Weight (Pounds): 100 General Appearance: no apparent distress EENT: normal ENT inspection Neck: supple Cardiovascular: normal rate Respiratory/Chest: decreased breath sounds Abdomen: hypoactive bowel sounds, tender Extremities: non-tender Assessment/Plan Problem List: (1) Pancreatitis ICD Codes: K85.90 - Acute pancreatitis without necrosis or infection, unspecified SNOMED: 09144762 (2) Hyponatremia ICD Codes: E87.1 - Hypo-osmolality and hyponatremia SNOMED: 85647550 (3) Pancreatic pseudocyst ICD Codes: K86.3 - Pseudocyst of pancreas SNOMED: 570034976 (4) Diabetes ICD Codes: E11.9 - Type 2 diabetes mellitus without complications SNOMED: 19802231 (5) Cannabis abuse ICD Codes: F12.10 - Cannabis abuse, uncomplicated SNOMED: 93090503 (6) Alcohol dependence ICD Codes: F10.20 - Alcohol dependence, uncomplicated SNOMED: 94462879 Assessment/Plan: npo ivf pain control bowel regimen repeat labs will fu Steven Grey MD May 22, 2020 07:26
--- NOTE | 2020-05-22 07:32 | History & Physical ---
History and Physical History & Physicial General Chief Complaint: Abdominal Pain Source: Patient Present Illness HPI Patient is a 39-year-old male presents to the ER complaining of abdominal pain for 1 week. He complains of associated nausea and nonbilious nonbloody vomitus. He also complains of nonbloody diarrhea. He complains of generalized weakness. He denies any fever or chills. He denies any chest pain, shortness of breath or cough. He denies any sick contacts at home. Allergies: Coded Allergies: No Known Allergies (Unverified , 10/05/15) COVID-19 Screening Contact w/high risk pt: No Recent Travel to affected area: No Experienced COVID-19 symptoms?: No COVID-19 Testing performed MEDIA CENTER SPECIALIST: Yes COVID-19 Screening: Negative COVID-19 COVID-19 Testing Source: At doctor's office Patient History Social History: Reports: drug use - Marijuana Reviewed Nursing Documentation: PMH: Agreed; PSxH: Agreed Nursing Documentation-PMH Hx Cardiac Problems: No Hx Cancer: No Hx Gastrointestinal Problems: Yes - pancreatitis Hx Neurological Problems: Yes Hx Dizziness: Yes Hx Numbness: Yes Hx Weakness: Yes - generalized, shae lower extremities ER ROS - General Review of Systems All Other Systems: negative except mentioned in HPI ER Physical Exam - General Physical Exam Vital Signs Date Time Temp Pulse Resp B/P (MAP) Pulse Ox O2 Delivery O2 Flow Rate FiO2 05/21/20 11:28 97.9 109 16 131/98 (109) 97 Room Air Sp02 EP Interpretation: reviewed, normal General Appearance: alert, GCS 15, non-toxic, mild distress, thin Head: normocephalic, atraumatic Eyes: bilateral eye normal inspection, bilateral eye PERRL ENT: dry mucus membranes Neck: full range of motion, no meningismus Respiratory: lungs clear, normal breath sounds, no accessory muscle use Cardiovascular #1: tachycardia Gastrointestinal: other - Diffuse abdominal tenderness maximal in the periumbilical region with no guarding or rebound Rectal: deferred Genitourinary: no CVA tenderness Musculoskeletal: normal range of motion Neurologic: licensing and registration director III-XII nml as tested, oriented x3 Psychiatric: no suicidal/homicidal ideation Skin: no rash Lymphatic: no adenopathy Diagnostic Impression: Primary Impression: Pancreatitis Additional Impressions: Hyponatremia Pancreatic pseudocyst Plan: Keep NPO, consult GI and Nephrology. Fluid restriction Marian Robison MD May 22, 2020 07:32
[2020-05-22 07:57] LABS: EOSINOPHILS % (AUTO) 0.4 % (0.0-3.0); HEMATOCRIT 35.7 % (42.0-52.0); HEMOGLOBIN 11.5 G/DL (14.2-18.0); LYMPHOCYTES % (AUTO) 16.1 % (20.0-45.0); MEAN CORPUSCULAR VOLUME 91 FL (80-99); MONOCYTES % (AUTO) 10.7 % (1.0-10.0); NEUTROPHILS % (AUTO) 71.8 % (45.0-75.0); PLATELET COUNT 271 K/UL (150-450); RED BLOOD COUNT 3.94 M/UL (4.70-6.10); RED CELL DISTRIBUTION WIDTH 15.7 % (11.6-14.8); WHITE BLOOD COUNT 6.6 K/UL (4.8-10.8)
--- NOTE | 2020-05-22 08:00 | NUR ---
NURSE NOTES: Patient left AMA, form signed by MILES DELACRUZ and ID wristband removed.
[2020-05-22 08:22] LABS: ALANINE AMINOTRANSFERASE 20 U/L (12-78); ALBUMIN 1.9 G/DL (3.4-5.0); ALBUMIN/GLOBULIN RATIO 0.5 (1.0-2.7); ALKALINE PHOSPHATASE 166 U/L (46-116); AMYLASE 966 U/L (25-115); ANION GAP 5 mmol/L (5-15); ASPARTATE AMINO TRANSFERASE 36 U/L (15-37); BILIRUBIN,TOTAL 0.4 MG/DL (0.2-1.0); BLOOD UREA NITROGEN 3 mg/dL (7-18); CALCIUM 8.4 MG/DL (8.5-10.1); CARBON DIOXIDE 27 MMOL/L (21-32); CHLORIDE 99 MMOL/L (98-107); CREATININE 0.6 MG/DL (0.55-1.30); POTASSIUM 4.1 MMOL/L (3.5-5.1); SODIUM 131 MMOL/L (136-145)
[2020-05-22] MEDS ORDERED: Docusate 100mg cap ORAL SCH (09:00)
[2020-05-22] MEDS ORDERED: Enoxaparin 40mg Inj SUBQ SCH (09:00)
[2020-05-22] MEDS ORDERED: Miralax 17gm pkt ORAL SCH (21:00)
--- NOTE | 2020-05-23 14:16 | Discharge Summary ---
Discharge Summary Discharge Summary _ Date of admission: 05/21/2020 Patient left AGAINST MEDICAL ADVICE on 05/22/2020 History of Present Illness and Brief Hospital Course Mr. Davidson is a 39-year-old male with past medical history of alcohol abuse and pancreatitis who presented to the ED for evaluation of abdominal pain x1 week. He also complained of nonbloody diarrhea. Initial laboratory studies revealed elevated lipase. Chest x-ray showed no acute cardiopulmonary disease. Abdomen/pelvis CT showed small pancreatic pseudocyst and peripancreatic fluid concerning for acute pancreatitis. Patient was admitted to the hospital for further management. Patient was kept NPO. Patient was provided with IV fluids, pain control, and bowel regimen. The day after admission however, patient requested to leave AGAINST MEDICAL ADVICE. Patient was strongly discouraged against leaving. In the end, patient left the hospital AGAINST MEDICAL ADVICE. Consultants: Gastroenterology Dr. Grey Final diagnoses Acute pancreatitis Hyponatremia Pancreatic pseudocyst Diabetes mellitus Cannabis abuse Alcohol dependence I have been assigned to dictate discharge summary for this account. I was not involved in the patient's management Pedro Lucas May 23, 2020 14:16
== END 2020-05-22 09:00 | disposition left against medical advice (07) | DRG 439 ==
LOC: EMR 12:05 → 4E 14:45 → EDBEDREQ 14:58
DX: K85.90 Acute pancreatitis without necrosis or infection, unspecified (principal); E87.1 Hypo-osmolality and hyponatremia; K86.3 Pseudocyst of pancreas; E11.9 Type 2 diabetes mellitus without complications; F12.10 Cannabis abuse, uncomplicated; F10.20 Alcohol dependence, uncomplicated
CPT/HCPCS: 36415; 71045; 74177; 80053; 80307; 81001; 81003; 82150; 83605; 83690; 83735; 85025; 85610; 85730; 87040; 93005; 96361; 96374; 96375; 99285; J2405; J7030